=== PATIENT | female | born 1955 | race Caucasian/White ===

== ENCOUNTER 2017-06-09 14:12 | Emergency (ER) | payer MEDICARE, MEDICAID ==
--- NOTE | 2017-06-09 15:40 | RAD ---
LEFT KNEE 4 VIEWS: HISTORY: Fall, left knee pain. FINDINGS/IMPRESSION: Degenerative changes are present. No acute fracture or dislocation is noted. There is fullness in t he suprapatellar pouch, suspicious for a joint effusion. POS: [facility]
== END 2017-06-09 17:10 | disposition home or self-care (01) ==
LOC: ERS 14:12
DX: M23.92 Unspecified internal derangement of left knee (principal); Z76.0 Encounter for issue of repeat prescription; E11.9 Type 2 diabetes mellitus without complications; I10 Essential (primary) hypertension; J44.9 Chronic obstructive pulmonary disease, unspecified; F32.9 Major depressive disorder, single episode, unspecified; F17.210 Nicotine dependence, cigarettes, uncomplicated; Z79.4 Long term (current) use of insulin

== ENCOUNTER 2017-06-23 04:52 | Inpatient (IN) | payer MEDICARE, MEDICAID ==
[2017-06-23] MEDS ORDERED: Albuterol Sulfate 2.5 mg/3 ml Neb ONE ×2 (05:21)
[2017-06-23] MEDS ORDERED: Albuterol Sulfate 2.5 mg/0.5 ml Neb ONE (05:22)
[2017-06-23 05:27] LABS: Oxyhemoglobin 87.9 % (94.0-97.0); Sodium 139 mmol/L (135-148)
[2017-06-23 05:38] LABS: Modified Allen's Test POSITIVE
[2017-06-23 05:51] LABS: Lactic Acid - Sepsis 1.1 mmol/L (0.5-2.2)
[2017-06-23 05:54] LABS: #Basophils 0.1 thou/uL (0.0-0.2); #Eosinphils 0.6 thou/uL (0.0-0.7); #Lymphocytes 2.1 thou/uL (1.20-3.40); #Monocytes 0.6 thou/uL (0.11-0.59); #Neutrophils 3.5 thou/uL (1.40-6.50); %Basophils 0.9 % (0.0-1.0); %Eosinophils 9.3 % (0.0-10.0); %Lymphocytes 30.4 % (21.0-51.0); %Monocytes 8.2 % (0.0-10.0); Hematocrit 43.9 % (36.0-47.0); Mean Platelet Volume 7.8 fL (7.4-10.4); Red Blood Cell (RBC) Count 4.47 mill/uL (4.20-5.40); White Blood Cell (WBC) Count 6.8 thou/uL (4.8-10.8)
[2017-06-23 05:55] LABS: ALT (SGPT) 10 U/L (8-55); AST (SGOT) 17 U/L (5-34); Alkaline Phosphatase 73 U/L (40-150); Anion Gap 8 mmol/L (10-20); BUN (Urea Nitrogen) 19 mg/dL (9.8-20.1); Bilirubin, Total 0.4 mg/dL (0.2-1.2); CK (CPK) 128 U/L (29-168); Calc. Creatinine Clearance 0 mL/min (70-130); Calcium 9.5 mg/dL (7.8-10.44); Carbon Dioxide 36 mmol/L (23-31); Chloride 100 mmol/L (98-107); Estimated GFR-MDRD 54; Globulin 3.3 g/dL (2.4-3.5); Lipase 12 U/L (8-78); Protein, Total 6.8 g/dL (6.0-8.3)
[2017-06-23] MEDS ORDERED: Magnesium Sulfate 2 GM/100 ML BAG ONE (05:55)
[2017-06-23] MEDS ORDERED: Dexamethasone 10 MG/ML VIAL ONE (05:55)
[2017-06-23 06:00] LABS: Troponin I Less than 0.010 ng/mL (< 0.028)
--- NOTE | 2017-06-23 07:50 | RAD ---
PORTABLE CHEST 1 VIEW: DATE: 06/23/17. TIME: 5:49 a.m. HISTORY: Cough, shortness of breath. FINDINGS: Comparison is made with the exam of 01/24/17. The heart size is normal. The lungs are expanded. There is an infiltrate in the left infrahilar reg ion. No pneumothorax or pleural effusions are seen. Findings are suspicious for pneumonia. POS: [facility]
[2017-06-23] MEDS ORDERED: Ondansetron ODT 4 MG TAB SL PRN (10:16)
[2017-06-23] MEDS ORDERED: Ondansetron HCl/PF 4 MG/2 ML Vial IVP PRN ×2 (10:16→10:55)
[2017-06-23] MEDS ORDERED: Sodium Chloride 0.9% 1,000 ML IV SCH (10:16)
[2017-06-23] MEDS ORDERED: Benzonatate 100 MG CAP PO PRN (10:55)
[2017-06-23] MEDS ORDERED: HumaLOG 300 UNITS/3 ML VIAL SC PRN (10:55)
[2017-06-23] MEDS ORDERED: Dextrose 5% in Water 1,000 ML IV PRN (10:55)
[2017-06-23] MEDS ORDERED: Ondansetron ODT 4 MG TAB PO PRN (10:55)
[2017-06-23] MEDS ORDERED: Acetaminophen 500 MG TAB PO PRN (10:55)
[2017-06-23] MEDS ORDERED: hydrALAZINE 20 MG/ML VIAL SLOW IVP PRN (10:55)
[2017-06-23] MEDS ORDERED: Dextrose 50% Abboject 50 ML SYRINGE SLOW IVP PRN (10:55)
[2017-06-23] MEDS ORDERED: cloNIDine 0.1 MG TAB PO PRN (10:55)
[2017-06-23 11:49] VITALS: BMI 32.5
[2017-06-23] MEDS ORDERED: Sodium Chloride 0.9% 10 ML ONE ×2 (12:19→17:49)
[2017-06-23] MEDS: HumaLOG 300 UNITS/3 ML VIAL SC PRN ×2 (12:23→17:44)
--- NOTE | 2017-06-23 13:04 | HP ---
DATE OF ADMISSION: 06/23/2017 PRIMARY CARE PHYSICIAN: Yadira Barlow M.D at [facility] in [place], [place]. CHIEF COMPLAINT: Shortness of breath. HISTORY OF PRESENT ILLNESS: This is a 61-year-old female, who presented to [facility] Emergency Department complaining of increased shortness of breath, cough, fatigue over the last 3-4 days. The patient has had some productive cough of yellow phlegm, decreased activity level, but ongoing use of tobacco smoking up to a pack of cigarettes daily. The patient denied any prominent fe jamaal, but continued to smoke despite her symptoms. The patient states she uses two inhalers, which di d not seem to help her symptoms. The patient did notice worsening of her symptoms with weather mcnamara es with recent cold fronts in the [facility] area. The patient denies any specific expos ure history, family members with similar symptoms, travel history, or change to her medication regime n. The patient denies any prominent chest pain, left arm discomfort, or jaw pain. The patient denie d any hematemesis or weight loss. In the Emergency Department, the patient underwent general evaluat ion including chest imaging showing chronic changes in bilateral lung nuñez. The patient was treate d for acute hypoxia in the context of chronic obstructive pulmonary disease. Initially managed with a lbuterol sulfate solution in addition to Levaquin, magnesium sulfate, Decadron, and DuoNeb therapy. The patient was transferred to the medical floor for further evaluation. PAST MEDICAL HISTORY: 1. Chronic obstructive pulmonary disease. 2. Tobacco abuse, ongoing. 3. Hypertension. 4. Diabetes mellitus type 2, insulin requiring. 5. Gastroesophageal reflux. 6. History of varicose veins. PAST SURGICAL HISTORY: 1. Status post cholecystectomy. 2. Status post bladder suspension. 3. Status post partial hysterectomy. CURRENT MEDICATIONS: 1. Ventolin HFA 2 puffs inhaled q.i.d. p.r.n. 2. Carvedilol 12.5 mg 1 tablet p.o. b.i.d. 3. Lispro 20 units subcutaneously b.i.d. 4. Lisinopril/hydrochlorothiazide 20/12.5 mg 1 tablet p.o. b.i.d. 5. Metformin 500 mg 1 tablet p.o. daily. ALLERGIES: PENICILLIN AND SULFA. FAMILY HISTORY: Father diagnosed with a cancer of unknown type. Mother with history of diabetes sally litus and CVA. SOCIAL HISTORY: The patient smokes up to a pack of cigarettes daily. Works delivering newspapers. Denies alcohol or illicit drug use. REVIEW OF SYSTEMS: The following complete review of systems was negative, unless otherwise mentioned in the HPI or below: Constitutional: Weight loss or gain, ability to conduct usual activities. Skin: Rash, itching. Eyes: Double vision, pain. ENT/Mouth: Nose bleeding, neck stiffness, pain, tenderness. Cardiovascular: Palpitations, dyspnea on exertion, orthopnea. Respiratory: Shortness of breath, wheezing, cough, hemoptysis, fever or night sweats. Gastrointestinal: Poor appetite, abdominal pain, heartburn, nausea, vomiting, constipation, or diarrh ea. Genitourinary: Urgency, frequency, dysuria, nocturia. Musculoskeletal: Pain, swelling. Neurologic/Psychiatric: Anxiety, depression. Allergy/Immunologic: Skin rash, bleeding tendency. PHYSICAL EXAMINATION: VITAL SIGNS: On admission, blood pressure 164/80, pulse 78, respiratory rate 20, temperature 98.4 de grees Fahrenheit, O2 saturation 93% on 2 liters per minute by nasal cannula. GENERAL APPEARANCE: This is a 61-year-old female, alert and oriented x3, pleasant, in no a cute distress. HEENT: Pupils are equal, round, and reactive to light and accommodation. Extraocular muscles are in tact. No scleral icterus, no conjunctival injection. Nares patent. OP is clear. Teeth with nicoti ne staining. No oral lesions noted. NECK: Supple, no cervical adenopathy, no thyromegaly, no carotid bruits, no JVD appreciated. Cervic al spine with full active and passive range of motion. No meningeal signs appreciated. CHEST: Diminished breath sounds in bilateral lung nuñez with coarse expiratory wheezes. CARDIOVASCULAR: S1 and S2 with distant heart sounds. ABDOMEN: Obese, soft, nontender, nondistended. Bowel sounds are positive in all four quadrants. Th ere is no hepatosplenomegaly, no abdominal bruits, no rebound or guarding appreciated. EXTREMITIES: Warm and dry with fair turgor. No clubbing, cyanosis or asymmetric edema appreciated. Pulses palpable distally at the dorsalis pedis, posterior tibial, and popliteal arteries bilaterally . Capillary refill less than 2 seconds. NEUROLOGIC: Cranial nerves II-XII grossly intact. No focal or lateralizing signs appreciated. PERTINENT LABORATORY AND X-RAY FINDINGS: Basic metabolic profile within normal limits. LFTs within normal limits. Troponin I negative x1. BNP 158. Albumin 3.5, lipase 12. CBC showed a white blood cell count 6.8, hemoglobin 14, hematocrit 44, platelet count 197 with normal differential. ABG at th e time of admission 06/23/2017 at 5:27 a.m. showed a pH 7.33, pCO2 of 60, pO2 of 68, bicarbonate 31, O2 saturation 94% on room air. EKG dated 06/23/2017 by my interpretation shows sinus mechanism with heart rates in the 70s. Normal R-wave progression noted in the precordial leads. Normal axis. No a cute ST-T wave changes appreciated. Portable chest x-ray dated 06/23/2017 shows chronic changes in b ilateral lung nuñez. Questionable early infiltrate in the left infrahilar region. ASSESSMENT AND PLAN: 1. Acute hypoxemic respiratory failure secondarily to #2. 2. We will continue oxygen supplementation to maintain O2 saturations greater than or equal to 90%. Continue treatment as outlined in #2. 3. Acute chronic obstructive pulmonary disease exacerbation. Continue DuoNebs q.4 hours scheduled. Solu-Medrol 40 mg IV q.6 hours. Levaquin 750 mg p.o. daily. Resume Symbicort 2 puffs inhaled b.i.d . 4. Hypertension. Resume home antihypertensive regimen and monitor clinical response. 5. Diabetes mellitus type 2, insulin requiring. Insulin sliding scale for flexible coverage. Resum e home insulin regimen. Serial Accu-Cheks before meals and at bedtime. ADA diet. 6. Tobacco abuse. We will offer smoking cessation resources prior to discharge. 7. Prophylaxis. Sequential compression devices while in bed. Pepcid 20 mg p.o. b.i.d. Smoking aleksandar sation resources. Update pneumonia vaccination prior to discharge. 8. Code status is FULL. Surrogate medical decision maker is the patient's daughter.
[2017-06-23] MEDS ORDERED: Lisinopril/Hydrochlorothiazide 20 mg/12.5 mg Tablet PO SCH (13:30)
[2017-06-23] MEDS ORDERED: Carvedilol 6.25 MG TAB PO SCH ×2 (13:30→14:15)
[2017-06-23] MEDS: Carvedilol 6.25 MG TAB PO SCH (17:43)
[2017-06-23] MEDS: Insulin NPH/Reg Insulin Hm 300 UNITS/3 ML VIAL SC SCH (17:44)
[2017-06-23] MEDS: Hydrochlorothiazide 25 MG TAB PO SCH (21:47)
[2017-06-23] MEDS: Famotidine 20 MG TAB PO SCH (21:48)
[2017-06-24] MEDS ORDERED: Sodium Chloride 0.9% 10 ML ONE ×2 (06:07)
[2017-06-24 06:40] LABS: Anion Gap 13 mmol/L (10-20); BUN (Urea Nitrogen) 27 mg/dL (9.8-20.1); Calc. Creatinine Clearance 89 mL/min (70-130); Calcium 9.1 mg/dL (7.8-10.44); Carbon Dioxide 25 mmol/L (23-31); Chloride 96 mmol/L (98-107); Estimated GFR-MDRD 54; Hematocrit 43.6 % (36.0-47.0); Mean Platelet Volume 8.4 fL (7.4-10.4); Red Blood Cell (RBC) Count 4.56 mill/uL (4.20-5.40); White Blood Cell (WBC) Count 12.6 thou/uL (4.8-10.8)
[2017-06-24] MEDS: HumaLOG 300 UNITS/3 ML VIAL SC PRN (07:00)
[2017-06-24] MEDS: Insulin NPH/Reg Insulin Hm 300 UNITS/3 ML VIAL SC SCH (08:20)
[2017-06-24] MEDS: Hydrochlorothiazide 25 MG TAB PO SCH (08:21)
[2017-06-24] MEDS: Carvedilol 6.25 MG TAB PO SCH (08:28)
[2017-06-24] MEDS: Famotidine 20 MG TAB PO SCH (08:31)
[2017-06-24 08:43] LABS: Band 13 % (5-11); Neutrophil 84 % (42-75); Reactive Lymphocytes 1 % (0-10)
[2017-06-24 08:49] VITALS: BP 183/81
[2017-06-24 08:52] VITALS: TEMP 98.2
[2017-06-24] MEDS ORDERED: Lisinopril 20 MG TAB PO SCH (09:00)
--- NOTE | 2017-06-24 12:03 | DIS ---
DATE OF ADMISSION: 06/23/2017 DATE OF DISCHARGE: 06/24/2017 DISCHARGE DIAGNOSES: 1. Acute hypoxic respiratory failure secondarily to #2, improved. 2. Acute chronic obstructive pulmonary disease exacerbation. 3. Tobacco abuse, ongoing. 4. Hypertension, stable. 5. Diabetes mellitus type 2, insulin requiring, labile due to steroids. CONSULTATIONS: None. PERTINENT LABORATORY AND X-RAY FINDINGS: Lactic acid level 1.1, calcium 9.1. BNP 158. CBC showed a white blood cell count ranging between 6.8-12.6. Blood cultures x2 dated 06/23/2017, showed no grow th to date. Influenza A and B antigen 06/23/2017 negative. Portable chest x-ray dated 06/23/2017, s howed questionable infiltrate in the left infrahilar region. HOSPITAL COURSE: Patient was admitted to the medical floor after initially presenting with increased shortness of breath, cough in the context of chronic obstructive pulmonary disease with exacerbation . The patient was placed on broad spectrum IV antibiotic therapy with Levaquin 750 mg daily. The pa tient was given bronchodilator therapy as well as IV Solu-Medrol with overall improvement in shortnes s of breath. Patient is clinically stabilized and was maintaining O2 saturations greater than 90% on room air by the time of discharge. The patient was counseled regarding the need for smoking cessati on and given resources for discharge. Overall, the patient remained clinically stable throughout the hospital course with glucose values trending upward due to exposure to steroids. Patient's overall vital signs stable at the time of discharge 06/24/2017. DISCHARGE MEDICATIONS: 1. Levaquin 750 mg 1 tab p.o. daily x5 days. 2. Ventolin HFA 2 puffs inhaled q.6 hours p.r.n. 3. Lipitor 10 mg 1 tab p.o. at bedtime. 4. Coreg 12.5 mg p.o. b.i.d. 5. NPH insulin 20 units subcutaneously b.i.d. 6. DuoNebs 3 mL nebulized q.i.d. p.r.n. 7. Lisinopril/HCTZ 20/12.5 mg 1 tab p.o. b.i.d. 8. Metformin 500 mg 1 tab p.o. b.i.d. 9. Prednisone 20 mg 2 tabs p.o. daily x 3 days, followed by 1 tab p.o. daily x 3 days, followed by h correction a tab p.o. daily x3 days. FOLLOWUP: The patient will follow up with her primary care provider, Dr. Yadira Barlow within 7 day s of discharge. CONDITION ON DISCHARGE: Fair. ACTIVITY: Ad hilda. DIET: Heart healthy and ADA. CODE STATUS: FULL. DISPOSITION: Home, 06/24/2017.
[2017-06-24] MEDS ORDERED: metFORMIN 500 MG TAB PO SCH (17:00)
--- NOTE | 2017-06-27 13:54 | EKG ---
Test Reason : Blood Pressure : / mmHG Vent. Rate : 076 BPM Atrial Rate : 076 BPM P-R Int : 150 ms QRS Dur : 088 ms QT Int : 400 ms P-R-T Axes : 035 071 088 degrees QTc Int : 450 ms Normal sinus rhythm Normal ECG Confirmed by JACQUELYN LEIVA, ART ([id number]), offline editor ANDERS BROWN ([id number]) on 06/27/2017 1:52:52 PM Referred By: Confirmed By:ART VALLADARES MD
== END 2017-06-24 11:41 | disposition home or self-care (01) | DRG 189 ==
LOC: ERS 04:52 → 3SE 05:36
PROVIDERS: ADMIT Internal Medicine; ATTEND Internal Medicine
DX: J96.01 Acute respiratory failure with hypoxia (principal); J44.1 Chronic obstructive pulmonary disease with (acute) exacerbation; I10 Essential (primary) hypertension; F17.210 Nicotine dependence, cigarettes, uncomplicated; E11.9 Type 2 diabetes mellitus without complications; Z90.49 Acquired absence of other specified parts of digestive tract; Z90.711 Acquired absence of uterus with remaining cervical stump; Z79.4 Long term (current) use of insulin
CPT/HCPCS: 36415; 36416; 71010; 80048; 80053; 82550; 82553; 82805; 83605; 83690; 83880; 84484; 85007; 85025; 85027; 87040; 93005; 94640; 96365; 96367; 96375; 99406; A4216; J0360; J1100; J1956; J2920; J3475; J7611; J7620

== ENCOUNTER 2017-09-08 12:52 | Outpatient (CLI) | payer MEDICARE, MEDICAID ==
--- NOTE | 2017-09-08 14:00 | RAD ---
TWO VIEW CHEST: History: Shortness of breath. Cough. FINDINGS: The lungs are clear with no infiltrate. No evidence of vascular congestion. Heart size is within norm al range. Old right rib fractures are again noted. IMPRESSION: No acute process. POS: [facility]
== END 2017-09-08 12:53 | disposition home or self-care (01) ==
LOC: RAD 12:52
PROVIDERS: ATTEND Internal Medicine Critical Care Medicine
DX: R06.00 Dyspnea, unspecified (principal)
CPT/HCPCS: 71046

== ENCOUNTER 2017-10-12 12:37 | Outpatient (CLI) | payer MEDICARE, MEDICAID | END 2017-10-12 12:38 | disposition home or self-care (01) | LOC: CP 12:37 | PROVIDERS: ATTEND Internal Medicine Critical Care Medicine | DX: J44.9 Chronic obstructive pulmonary disease, unspecified (principal); R06.00 Dyspnea, unspecified | CPT/HCPCS: 94060; 94727; 94729 ==

== ENCOUNTER 2018-02-28 15:09 | Emergency (ER) | payer MEDICARE, MEDICAID ==
--- NOTE | 2018-02-28 15:59 | RAD ---
[facility] 1 VIEW: Date: 02/28/18 HISTORY: Cough. COMPARISON: Chest radiograph dated 09/08/17. FINDINGS: Old right-sided rib fractures, Left basilar opacity. No pneumothorax. IMPRESSION: Left basilar opacity, concerning for infection. Follow-up recommended. POS: [facility]
[2018-02-28 16:02] LABS: #Eosinphils 0.5 thou/uL (0.0-0.7); #Lymphocytes 1.5 thou/uL (1.20-3.40); #Monocytes 0.5 thou/uL (0.11-0.59); #Neutrophils 8.4 thou/uL (1.40-6.50); %Basophils 0.1 % (0.0-1.0); %Eosinophils 4.4 % (0.0-10.0); %Lymphocytes 13.7 % (21.0-51.0); %Monocytes 4.9 % (0.0-10.0); Mean Corpuscular HGB CONC 32.6 g/dL (32.0-36.0); Mean Corpuscular Hemoglobin 30.3 pg (27.0-31.0); Mean Corpuscular Volume 93.1 fL (78.0-98.0); Mean Platelet Volume 7.1 fL (7.4-10.4); Platelet Count 239 thou/uL (130-400); RBC Distribution Width 12.5 % (11.5-14.5); Red Blood Cell (RBC) Count 5.29 mill/uL (4.20-5.40); White Blood Cell (WBC) Count 10.9 thou/uL (4.8-10.8)
[2018-02-28 16:39] LABS: ALT (SGPT) 7 U/L (8-55); AST (SGOT) 15 U/L (5-34); Albumin 3.1 g/dL (3.4-4.8); Alkaline Phosphatase 105 U/L (40-150); Anion Gap 13 mmol/L (10-20); BUN (Urea Nitrogen) 17 mg/dL (9.8-20.1); Bilirubin, Total 0.6 mg/dL (0.2-1.2); Calc. Creatinine Clearance 0 mL/min (70-130); Calcium 9.1 mg/dL (7.8-10.44); Carbon Dioxide 32 mmol/L (23-31); Chloride 94 mmol/L (98-107); Estimated GFR-MDRD 68; Globulin 3.5 g/dL (2.4-3.5); Glucose 110 mg/dL (80-115); Potassium 4.7 mmol/L (3.5-5.1); Protein, Total 6.6 g/dL (6.0-8.3); Sodium 134 mmol/L (136-145)
[2018-02-28] MEDS ORDERED: predniSONE 20 MG TAB ONE (16:44)
== END 2018-02-28 17:00 | disposition home or self-care (01) ==
LOC: ERS 15:09
DX: J18.9 Pneumonia, unspecified organism (principal); E11.9 Type 2 diabetes mellitus without complications; I10 Essential (primary) hypertension; J44.9 Chronic obstructive pulmonary disease, unspecified; F32.9 Major depressive disorder, single episode, unspecified; F17.210 Nicotine dependence, cigarettes, uncomplicated
CPT/HCPCS: 36415; 71045; 80053; 85025; 94640; J7506; J7620

== ENCOUNTER 2018-03-05 08:50 | Inpatient (IN) | payer MEDICARE, MEDICAID ==
[2018-03-05] MEDS ORDERED: methylPREDNISolone Sod Succ/PF 125 MG/2 ML VIAL ONE (09:12)
[2018-03-05 09:17] LABS: #Basophils 0.1 thou/uL (0.0-0.2); #Eosinphils 0.4 thou/uL (0.0-0.7); #Lymphocytes 2.8 thou/uL (1.20-3.40); #Monocytes 0.7 thou/uL (0.11-0.59); #Neutrophils 10.1 thou/uL (1.40-6.50); %Basophils 0.5 % (0.0-1.0); %Eosinophils 2.8 % (0.0-10.0); %Lymphocytes 19.9 % (21.0-51.0); %Monocytes 5.1 % (0.0-10.0); %Neutrophils 71.6 % (42.0-75.0); Hemoglobin 16.4 g/dL (12.0-16.0); Mean Corpuscular HGB CONC 32.5 g/dL (32.0-36.0); Mean Corpuscular Hemoglobin 30.5 pg (27.0-31.0); Mean Corpuscular Volume 93.7 fL (78.0-98.0); Mean Platelet Volume 7.1 fL (7.4-10.4); Platelet Count 258 thou/uL (130-400); RBC Distribution Width 13.1 % (11.5-14.5); Red Blood Cell (RBC) Count 5.39 mill/uL (4.20-5.40)
[2018-03-05 09:32] LABS: CKMB 3.7 ng/mL (0-6.6)
[2018-03-05 09:41] LABS: Troponin I Less than 0.010 ng/mL (< 0.028)
[2018-03-05] MEDS ORDERED: Ketorolac Tromethamine 30 MG/ML VIAL ONE (09:43)
[2018-03-05 09:56] LABS: ALT (SGPT) 10 U/L (8-55); AST (SGOT) 19 U/L (5-34); Albumin 3.4 g/dL (3.4-4.8); Alkaline Phosphatase 79 U/L (40-150); Anion Gap 12 mmol/L (10-20); BUN (Urea Nitrogen) 23 mg/dL (9.8-20.1); Bilirubin, Total 0.4 mg/dL (0.2-1.2); CK (CPK) 290 U/L (29-168); Calc. Creatinine Clearance 0 mL/min (70-130); Calcium 8.6 mg/dL (7.8-10.44); Carbon Dioxide 31 mmol/L (23-31); Chloride 95 mmol/L (98-107); Estimated GFR-MDRD 56; Globulin 3.3 g/dL (2.4-3.5); Glucose 74 mg/dL (80-115); Protein, Total 6.7 g/dL (6.0-8.3); Sodium 134 mmol/L (136-145)
[2018-03-05] MEDS ORDERED: diphenhydrAMINE 50 MG/ML VIAL ONE (11:22)
--- NOTE | 2018-03-05 11:38 | RAD ---
AP VIEW CHEST: Date: 03/05/18 INDICATION: History of pneumonia. COMPARISON: Prior exam dated 02/28/18. FINDINGS: The patchy left basilar opacity i8s no longer demonstrated and may reflect some improvement in pneumo maylin. A 2 view chest radiograph may be helpful for further evaluation. Mild cardiomegaly is stable. Ca lcified lymph nodes are stable. Healed deformity involving the right posterior chest wall is similar. IMPRESSION: 1. Less prominence of the left basilar opacity seen on comparison examination may reflect improving pneumonia. 2 view chest radiograph may be helpful to document full resolution. 2. Stable mild cardiomegaly. POS: [facility]
--- NOTE | 2018-03-05 11:56 | HP ---
PRIMARY CARE PHYSICIAN: Dr. Cain May at [facility]. REASON FOR ADMISSION: COPD exacerbation, failure of outpatient therapy. HISTORY OF PRESENT ILLNESS: A 62-year-old female who has underlying history of COPD as well as ongoi ng tobacco abuse disorder who presented to emergency room on 03/03/2018. At that time, patient was h aving increasing amount of cough with productive p.o. yellowish green sputum as well as wheezing and increasing amount of shortness of breath. The patient's exercise tolerance significantly reduced. S he was hearing her own wheezing. She was having significant amount of cough and that was making her chest wall hurt. She was having subjective fever at home. She was feeling more and more worse and t hat is why she came on that day emergency room for evaluation. In the emergency room, she was diagno sed with pneumonia in the left lower lobe. The patient was given Levaquin 750 mg IV and patient was given DuoNeb therapy x2 and prednisone was given. Subsequently, patient was discharged home on oral prednisone as well as oral levofloxacin per patient request. Patient was not doing well since then. She continued to smoke even after discharge from the ER, her condition was getting worse and that is why today she decided to come to the emergency room for evaluation. When she came to the emergency room, she was relatively hypoxic. Her saturation was 88%-90% on room air. With oxygen saturation, s he was improving. She was having audible wheezing. She was continued to have chest wall pain as wel l as cough productive for sputum. She did have a low grade fever as well at home. She was not feeli ng better and that is why she decided to come to hospital again today. In the emergency room, she had chest x-ray which was showing resolving pneumonia. She received DuoNe b therapy, Solu-Medrol 125 mg, Levaquin 750 mg, Toradol 30 mg, and IV fluid and we are admitting this patient to medical floor. PAST MEDICAL HISTORY: COPD, ongoing tobacco abuse disorder, hypertension, diabetes type 2, gastroeso phageal reflux disease, varicose veins. PAST SURGICAL HISTORY: Cholecystectomy, bladder suspension, partial hysterectomy. PAST PSYCHIATRIC HISTORY: Reviewed and negative. ALLERGIES: PENICILLIN and SULFA DRUGS. FAMILY HISTORY: Father diagnosed with cancer of unknown type. Mother has history of diabetes and st roke. SOCIAL HISTORY: The patient is smoking 1 pack per day. 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 No histor y of alcohol or other illicit drug abuse. REVIEW OF SYSTEMS: The following complete review of systems was negative, unless otherwise mentioned in the HPI or below: Constitutional: Weight loss or gain, ability to conduct usual activities. Skin: Rash, itching. Eyes: Double vision, pain. ENT/Mouth: Nose bleeding, neck stiffness, pain, tenderness. Cardiovascular: Palpitations, dyspnea on exertion, orthopnea. Respiratory: Shortness of breath, wheezing, cough, hemoptysis, fever or night sweats. Gastrointestinal: Poor appetite, abdominal pain, heartburn, nausea, vomiting, constipation, or diarr hea. Genitourinary: Urgency, frequency, dysuria, nocturia. Musculoskeletal: Pain, swelling. Neurologic/Psychiatric: Anxiety, depression. Allergy/Immunologic: Skin rash, bleeding tendency. Please see my HPI for pertinent positive and negative. All other review of systems reviewed and nega tive except as mentioned in the HPI. CURRENT HOME MEDICATIONS: Lipitor 10 mg p.o. at bedtime, Coreg 12.5 mg twice daily, insulin 70/30 20 units subcu b.i.d., Prinzide 20/12.5 one tablet daily, metformin 500 mg p.o. b.i.d., Levaquin 750 mg p.o. daily, prednisone 20 mg p.o. daily, albuterol inhaler as needed basis, DuoNeb q.6 hourly PHYSICAL EXAMINATION: VITAL SIGNS: On arrival, blood pressure 185/93, pulse 76, respiratory rate 24, saturation 88% on rosalee m air and 93% on 2 liter oxygen, weight 113.4 kilograms, temperature 98.8. GENERAL: Patient is currently hypertensive, mild respiratory distress. HEAD: Normocephalic, atraumatic. EYES: Pupils round, reactive to light. Extraocular muscle intact. ENT: Oropharynx within normal limits. Moist mucous membrane, no oral lesion, no pharyngeal erythema , no exudate. NECK: Supple, no JVD, no thyromegaly, no carotid bruit. LUNGS: Bilateral end expiratory wheezing heard, bibasilar predominantly on the left side or rales no bill. No accessory muscles of respiration in use. CARDIAC: S1, S2 regular. No murmur elicited, no gallop, no rub. ABDOMEN: Obesity present. Bowel sounds present, nontender, nondistended. No organomegaly, no mass, no suprapubic tenderness. BACK: Examination unremarkable, no CVA tenderness. EXTREMITIES: Upper extremity passive movements of all joints are normal. Lower extremities: Bilate ral lower extremity edema noted. Varicose vein changes noted. No calf tenderness. SKIN: No skin rash. Patient has plethoric appearance. NEUROLOGIC: Nonfocal examination. Patient is moving all 4 limbs. Plantar bilateral flexor. PSYCHIATRIC: Normal affect. IMAGING DATA AND SIGNIFICANT LABORATORY DATA: trainer showing normal sinus rhythm. EKG sh owing normal sinus rhythm within normal limits. Chest x-ray showing cardiomegaly, stable pulmonary n odule and left lower lobe opacity, resolving. CBC: WBC 14.0, hemoglobin 16.4, platelet 258 with lef t shift. BMP: Sodium 134, potassium 4.0, chloride 95, carbon dioxide 31, anion gap 12, BUN 23, crea tinine 1.0, glucose 74, calcium 8.6. LFT: AST 19, ALT 10, alkaline phosphatase 79, albumin 3.46, CK 290, CK-MB 3.7, troponin I less than 0.010, BNP 284.9. ASSESSMENT AND PLAN/IMPRESSION: 1. Acute on chronic obstructive pulmonary disease exacerbation with failure of outpatient therapy, m ost likely precipitated by underlying pneumonia. Patient has active wheezing as well as rales on the left lower lobe and she is symptomatic, she is hypoxic. She will require admission. We will keep h er on medical floor. We will treat her with Solu-Medrol 40 mg IV q.6 hourly, DuoNeb q.4 hours and p. r.n., Dulera 2 puffs inhalation b.i.d., Mucinex 600 mg twice daily, empiric antibiotic therapy with L evofloxacin 750 mg IV daily. We will monitor oxygen saturation periodically. Smoking cessation coun seling given and we will offer nicotine patch while in hospital. We will monitor clinical response. 2. Left lower lobe community-acquired pneumonia, improving. We will continue Levaquin 750 mg IV shivani ly along with Mucinex 600 mg twice daily and medication mentioned above for chronic obstructive pulmo nary disease exacerbation. 3. Tobacco abuse disorder. Smoking cessation counseling given. Patient will need a nicotine patch while in hospital. 4. Acute hypoxic respiratory failure. We will monitor oxygen saturation periodically while in hospi ikt. This is related with her chronic obstructive pulmonary disease exacerbation with pneumonia. 5. Elevated BNP. We will obtain echocardiography to assess right ventricular function and rule out cor pulmonale. 6. Mild hyponatremia, may be related with COPD and has hydrochlorothiazide. 7. Hypertension. We will continue Coreg 12.5 mg twice daily and Prinzide 20/12.5 one tablet daily. 8. Diabetes type 2. Continue insulin 70/30 20 units subcu b.i.d., metformin 500 mg p.o. twice daily and insulin as per sliding scale per protocol. 9. Dyslipidemia. Continue Lipitor 10 mg p.o. at bedtime. 10. Obesity. Dietary education given. Healthy lifestyle measures discussed with the patient. 11. Deep venous thrombosis prophylaxis. Lovenox 40 mg subcu b.i.d. 12. Gastrointestinal prophylaxis, Pepcid 20 mg p.o. b.i.d. 13. Code status: The patient is full code. Plan of care discussed with the patient and family member at bedside in the emergency room. We will control her chest wall pain with morphine as needed basis.
[2018-03-05] MEDS ORDERED: Acetaminophen 325 MG TAB PO PRN (13:26)
[2018-03-05] MEDS ORDERED: Ondansetron HCl/PF 4 MG/2 ML Vial IVP PRN ×2 (13:26→14:30)
[2018-03-05] MEDS ORDERED: Ondansetron ODT 4 MG TAB SL PRN (13:26)
[2018-03-05 14:22] VITALS: BMI 39.1
[2018-03-05] MEDS ORDERED: Loratadine 10 MG TAB PO PRN (14:30)
[2018-03-05] MEDS ORDERED: cloNIDine 0.1 MG TAB PO PRN (14:30)
[2018-03-05] MEDS ORDERED: Dextrose 5% in Water 1,000 ML IV PRN (14:30)
[2018-03-05] MEDS ORDERED: Artificial Tear Sol 15 ML BOT EA EYE PRN (14:30)
[2018-03-05] MEDS ORDERED: Loperamide HCl 2 MG CAP PO PRN ×2 (14:30)
[2018-03-05] MEDS ORDERED: Mag-Al 1200 mg/1200 mg/30 ML UDCUP PO PRN (14:30)
[2018-03-05] MEDS ORDERED: Sodium Chloride 0.65% Nasal 44 ML BOT EA NARE PRN (14:30)
[2018-03-05] MEDS ORDERED: Senokot 8.6 MG TAB PO PRN (14:30)
[2018-03-05] MEDS ORDERED: Chloraseptic Spray 180 ml Bottle PO PRN (14:30)
[2018-03-05] MEDS ORDERED: Zolpidem Tartrate 5 MG TAB PO PRN (14:30)
[2018-03-05] MEDS ORDERED: Eucerin (Mineral Oil/Petrolatum,White) 30 gm Jar TOP PRN (14:30)
[2018-03-05] MEDS ORDERED: Milk Of Magnesia 30 ML UDCUP PO PRN (14:30)
[2018-03-05] MEDS ORDERED: hydrALAZINE 20 MG/ML VIAL SLOW IVP PRN (14:30)
[2018-03-05] MEDS ORDERED: Ondansetron ODT 4 MG TAB PO PRN (14:30)
[2018-03-05] MEDS ORDERED: Dextrose 50% Abboject 50 ML SYRINGE SLOW IVP PRN (14:30)
[2018-03-05] MEDS: Sodium Chloride 0.9% 1,000 ML IV SCH ×2 (14:37→21:22)
[2018-03-05] MEDS ORDERED: Carvedilol 6.25 MG TAB PO SCH (17:00)
[2018-03-05] MEDS: metFORMIN 500 MG TAB PO SCH (17:44)
[2018-03-05] MEDS: HumaLOG 300 UNITS/3 ML VIAL SC PRN ×2 (17:45→21:21)
[2018-03-05] MEDS: Mometasone/Formoterol 120 PUFF INHALER INH SCH (18:26)
[2018-03-05] MEDS: guaiFENesin ER 600 MG TAB PO SCH (20:16)
[2018-03-05] MEDS: Diabetic Tussin 200 MG/10 ML UDCUP PO PRN (20:16)
[2018-03-05] MEDS: Famotidine 20 MG TAB PO SCH (20:16)
[2018-03-05] MEDS: Atorvastatin Calcium 10 MG TAB PO SCH (20:16)
[2018-03-05] MEDS: Insulin NPH/Reg Insulin Hm 300 UNITS/3 ML VIAL SC SCH (21:21)
[2018-03-06 05:24] LABS: Anion Gap 15 mmol/L (10-20); BUN (Urea Nitrogen) 31 mg/dL (9.8-20.1); Calc. Creatinine Clearance 87 mL/min (70-130); Carbon Dioxide 27 mmol/L (23-31); Chloride 94 mmol/L (98-107); Estimated GFR-MDRD 43; Glucose 229 mg/dL (80-115); Potassium 4.9 mmol/L (3.5-5.1); Sodium 131 mmol/L (136-145)
[2018-03-06] MEDS: Diabetic Tussin 200 MG/10 ML UDCUP PO PRN (05:59)
[2018-03-06] MEDS: HumaLOG 300 UNITS/3 ML VIAL SC PRN ×4 (06:08→21:50)
[2018-03-06 06:19] LABS: Band 14 % (5-11); Hemoglobin 15.2 g/dL (12.0-16.0); Lymphocytes 5 % (21-51); MDiff Complete? YES; Mean Corpuscular HGB CONC 31.9 g/dL (32.0-36.0); Mean Corpuscular Hemoglobin 29.5 pg (27.0-31.0); Mean Corpuscular Volume 92.3 fL (78.0-98.0); Mean Platelet Volume 7.4 fL (7.4-10.4); Monocytes 1 % (0-10); Neutrophil 80 % (42-75); Platelet Count 225 thou/uL (130-400); RBC Distribution Width 12.6 % (11.5-14.5); Red Blood Cell (RBC) Count 5.15 mill/uL (4.20-5.40); White Blood Cell (WBC) Count 13.8 thou/uL (4.8-10.8)
[2018-03-06] MEDS: Acetaminophen 325 MG TAB PO PRN ×3 (06:29→21:43)
[2018-03-06] MEDS: Mometasone/Formoterol 120 PUFF INHALER INH SCH ×2 (06:29→18:30)
[2018-03-06] MEDS: Insulin NPH/Reg Insulin Hm 300 UNITS/3 ML VIAL SC SCH ×2 (08:38→21:47)
[2018-03-06] MEDS: metFORMIN 500 MG TAB PO SCH ×2 (08:38→16:42)
[2018-03-06] MEDS: Famotidine 20 MG TAB PO SCH ×2 (08:38→21:41)
[2018-03-06] MEDS: Nicotine 21 MG PATCH TD SCH (08:38)
[2018-03-06] MEDS: Carvedilol 25 MG TAB PO SCH ×2 (08:38→16:42)
[2018-03-06] MEDS: Enoxaparin Sodium 40 MG/0.4 ML SYRINGE SC SCH (08:38)
[2018-03-06] MEDS: guaiFENesin ER 600 MG TAB PO SCH ×2 (08:38→21:42)
[2018-03-06] MEDS: Saccharomyces boulardii 250 MG CAP PO SCH (08:38)
[2018-03-06] MEDS: Lisinopril/Hydrochlorothiazide 20 mg/12.5 mg Tablet PO SCH (08:52)
--- NOTE | 2018-03-06 11:01 | PDOC.PN ---
- Subjective Encounter Start Date: 03/06/18 Encounter Start Time: 09:00 Patient seen and examined. No new complaints. No overnight events - Objective Resuscitation Status: Resuscitation Status FULL:Full Resuscitation MAR Reviewed: Yes Vital Signs & Weight: Vital Signs (12 hours) Temp Pulse Resp BP BP Pulse Ox 03/06/18 10:44 98.4 F 107 H 18 165/88 H 92 L 03/06/18 10:20 76 16 94 L 03/06/18 08:52 75 168/78 H 03/06/18 08:00 98.1 F 72 16 97 03/06/18 07:42 98.1 F 72 16 168/78 H 97 03/06/18 06:30 77 16 94 L 03/06/18 06:29 77 16 94 L 03/06/18 06:27 97.7 F 80 26 H 166/77 H 91 L 03/06/18 02:20 71 16 97 03/06/18 01:06 97.4 F L 83 24 H 140/81 93 L Weight Weight 265 lb 1.6 oz I&O: 03/05/18 03/06/18 03/07/18 06:59 06:59 06:59 Intake Total 822 Balance 822 Result Diagrams: 03/06/18 04:19 03/06/18 04:19 Additional Labs: Accuchecks 03/06/18 03/05/18 03/05/18 06:07 21:05 16:10 POC Glucose 280 H 368 H 250 H Phys Exam - Physical Examination Constitutional: NAD HEENT: PERRLA, moist MMs, sclera anicteric Neck: no JVD, supple Respiratory: no rhonchi, wheezing present left base rales Cardiovascular: RRR, no significant murmur, no rub Gastrointestinal: soft, non-tender, no distention, positive bowel sounds obesity+ Musculoskeletal: no edema, pulses present Neurological: non-focal, normal sensation, moves all 4 limbs Lymphatic: no nodes Psychiatric: normal affect Skin: no rash, normal turgor Dx/Plan (1) Acute respiratory failure with hypoxia Code(s): J96.01 - ACUTE RESPIRATORY FAILURE WITH HYPOXIA Status: Acute (2) COPD exacerbation Code(s): J44.1 - CHRONIC OBSTRUCTIVE PULMONARY DISEASE W (ACUTE) EXACERBATION Status: Acute (3) Community acquired bacterial pneumonia Code(s): J15.9 - UNSPECIFIED BACTERIAL PNEUMONIA Status: Acute (4) Elevated brain natriuretic peptide (BNP) level Code(s): R79.89 - OTHER SPECIFIED ABNORMAL FINDINGS OF BLOOD CHEMISTRY Status : Acute (5) Diabetes type 2, controlled Code(s): E11.9 - TYPE 2 DIABETES MELLITUS WITHOUT COMPLICATIONS Status: Chronic (6) Dyslipidemia Code(s): E78.5 - HYPERLIPIDEMIA, UNSPECIFIED Status: Chronic (7) Hypertension Code(s): I10 - ESSENTIAL (PRIMARY) HYPERTENSION Status: Chronic (8) Obesity (BMI 30-39.9) Code(s): E66.9 - OBESITY, UNSPECIFIED Status: Chronic (9) Tobacco abuse Code(s): Z72.0 - TOBACCO USE Status: Chronic - Plan cont current plan of care, continue antibiotics, respiratory therapy * counselled to quit smoking * continue levaquin * reduce solumedrol 20 mg iv q 6hrly * continue current optimum medical therapy for copd * wean off oxygen as tolerated * medication reviewed as below * symptomatic treatment * ambulate as tolerated. * home medication reconciled Review of Systems - Review of Systems Eyes: negative: Pain, Vision Change, Conjunctivae Inflammation, Eyelid Inflammation, Redness, Other ENT: negative: Ear Pain, Ear Discharge, Nose Pain, Nose Discharge, Nose Congestion, Mouth Pain, Mouth Swelling, Throat Pain, Throat Swelling, Other Respiratory: Cough, Shortness of Breath, Wheezing. negative: Dry, Hemoptysis, SOB with Excertion, Pleuritic Pain, Sputum Cardiovascular: negative: chest pain, palpitations, orthopnea, paroxysmal nocturnal dyspnea, edema, light headedness, other Gastrointestinal: negative: Nausea, Vomiting, Abdominal Pain, Diarrhea, Constipation, Melena, Hematochezia, Other Genitourinary: negative: Dysuria, Frequency, Incontinence, Hematuria, Retention , Other Musculoskeletal: negative: Neck Pain, Shoulder Pain, Arm Pain, Back Pain, Hand Pain, Leg Pain, Foot Pain, Other Skin: negative: Rash, Lesions, Nico, Bruising, Other - Medications/Allergies Allergies/Adverse Reactions: Allergies Allergy/AdvReac Type Severity Reaction Status Date / Time ketorolac [From Toradol] Allergy Verified 03/05/18 14:16 Penicillins Allergy Rash Verified 03/05/18 14:16 sulfamethoxazole Allergy Rash Verified 03/05/18 14:16 [From Bactrim] trimethoprim [From Bactrim] Allergy Verified 03/05/18 14:16 Medications: Current Medications Acetaminophen (Tylenol) 650 mg PO Q4H PRN PRN Reason: Headache/Fever or Pain Last Admin: 03/06/18 06:29 Dose: 650 mg Al Hydroxide/Mg Hydroxide (Maalox) 30 ml PO Q6H PRN PRN Reason: Heartburn or Indigestion Albuterol/Ipratropium (Duoneb) 3 ml NEB [id number] [facility] Last Admin: 03/06/18 10:20 Dose: 3 ml Artificial Tears (Tears Renewed 15ml Bottle) 0 drop EA EYE PRN PRN PRN Reason: Dry Eyes Atorvastatin Calcium (Lipitor) 10 mg PO HS [facility] Last Admin: 03/05/18 20:16 Dose: 10 mg Carvedilol (Coreg) 25 mg PO BID-[facility] Last Admin: 03/06/18 08:38 Dose: 25 mg Clonidine (Catapres) 0.1 mg PO Q4H PRN PRN Reason: Systolic BP > 180 Dextrose/Water (Dextrose 50%) 25 gm SLOW IVP PRN PRN PRN Reason: Hypoglycemia Enoxaparin Sodium (Lovenox) 40 mg SC 0900 [facility] Last Admin: 03/06/18 08:38 Dose: 40 mg Famotidine (Pepcid) 20 mg PO BID [facility] Last Admin: 03/06/18 08:38 Dose: 20 mg Glucagon (Glucagon) 1 mg IM PRN PRN PRN Reason: Hypoglycemia Guaifenesin (Mucinex) 600 mg PO Q12HR [facility] Last Admin: 03/06/18 08:38 Dose: 600 mg Guaifenesin (Robitussin Sf) 200 mg PO Q4H PRN PRN Reason: Cough Last Admin: 03/06/18 05:59 Dose: 200 mg Lisinopril/HCTZ (Prinizide 20-12.5) 1 tab PO DAILY [facility] Last Admin: 03/06/18 08:52 Dose: 1 tab Hydralazine HCl (Apresoline) 10 mg SLOW IVP Q4H PRN PRN Reason: Systolic BP > 180 Levofloxacin 750 mg/ Device 150 mls @ 100 mls/hr IVPB Q24HR@0900 [facility] Last Admin: 03/06/18 08:38 Dose: 150 mls Dextrose/Water (D5w) 1,000 mls @ 0 mls/hr IV .Q0M PRN PRN Reason: Hypoglycemia Insulin Human Isoph/Insulin Regular (Humulin 70/30) 20 units SC BID [facility] Last Admin: 03/06/18 08:38 Dose: 20 unit Insulin Human Lispro (Humalog) 0 units SC .AGGRESSIVE SLIDING PRN PRN Reason: Aggressive Correctional Scale Last Admin: 03/06/18 06:08 Dose: 9 unit Insulin Human Lispro (Humalog) 0 units SC .BEDTIME SLIDING SC PRN PRN Reason: Bedtime Correctional Scale Last Admin: 03/05/18 21:21 Dose: 5 unit Loperamide HCl (Imodium) 2 mg PO PRN PRN PRN Reason: Diarrhea/Loose Stools Loperamide HCl (Imodium) 2 mg PO PRN PRN PRN Reason: Diarrhea/Loose Stools Loratadine (Claritin) 10 mg PO DAILYPRN PRN PRN Reason: Sinus Symptoms Magnesium Hydroxide (Milk Of Magnesium) 30 ml PO DAILYPRN PRN PRN Reason: Constipation Metformin HCl (Glucophage) 500 mg PO BID-WM [facility] Last Admin: 03/06/18 08:38 Dose: 500 mg Methylprednisolone Sodium Succinate (Solu-Medrol) 40 mg IVP Q6HR [facility] Last Admin: 03/06/18 05:59 Dose: 40 mg Mineral Oil/White Petrolatum (Eucerin Cream) 0 gm TOP BIDPRN PRN PRN Reason: Dry Skin Mometasone Furoate/Formoterol Fumar (Dulera 200 Mcg/5 Mcg Inhaler) 2 puff INH BID-RT [facility] Last Admin: 03/06/18 06:29 Dose: 2 puff Morphine Sulfate (Morphine) 2 mg SLOW IVP Q4H PRN PRN Reason: Pain Nicotine (Nicoderm Patch) 21 mg TD DAILY [facility] Last Admin: 03/06/18 08:38 Dose: 21 mg Ondansetron HCl (Zofran Odt) 4 mg PO Q6H PRN PRN Reason: Nausea/Vomiting Ondansetron HCl (Zofran) 4 mg IVP Q6H PRN PRN Reason: Nausea/Vomiting Phenol (Chloraseptic [place] 180 Ml Bot) 0 ml PO PRN PRN PRN Reason: Sore Throat Saccharomyces Boulardii (Florastor) 250 mg PO DAILY [facility] Last Admin: 03/06/18 08:38 Dose: 250 mg Senna (Senokot) 2 tab PO HSPRN PRN PRN Reason: Constipation Sodium Chloride ([place] Nasal [place] 0.65%) 0 ml EA NARE QIDPRN PRN PRN Reason: Nasal Congestion Sodium Chloride (Flush - Normal Saline) 10 ml IVF PRN PRN PRN Reason: Saline Flush Last Admin: 03/06/18 06:00 Dose: 10 ml Zolpidem Tartrate (Ambien) 5 mg PO HSPRN PRN PRN Reason: Insomnia
[2018-03-06] MEDS: Atorvastatin Calcium 10 MG TAB PO SCH (21:42)
[2018-03-07] MEDS: HumaLOG 300 UNITS/3 ML VIAL SC PRN ×4 (05:54→20:02)
[2018-03-07] MEDS: Mometasone/Formoterol 120 PUFF INHALER INH SCH ×2 (07:03→19:06)
[2018-03-07] MEDS: Lisinopril/Hydrochlorothiazide 20 mg/12.5 mg Tablet PO SCH (08:01)
[2018-03-07] MEDS: guaiFENesin ER 600 MG TAB PO SCH ×2 (08:01→19:34)
[2018-03-07] MEDS: Saccharomyces boulardii 250 MG CAP PO SCH (08:01)
[2018-03-07] MEDS: Enoxaparin Sodium 40 MG/0.4 ML SYRINGE SC SCH (08:02)
[2018-03-07] MEDS: metFORMIN 500 MG TAB PO SCH ×2 (08:02→16:34)
[2018-03-07] MEDS: Carvedilol 25 MG TAB PO SCH ×2 (08:02→16:34)
[2018-03-07] MEDS: Famotidine 20 MG TAB PO SCH ×2 (08:02→19:34)
[2018-03-07] MEDS: Insulin NPH/Reg Insulin Hm 300 UNITS/3 ML VIAL SC SCH ×2 (08:04→19:59)
[2018-03-07] MEDS: Nicotine 21 MG PATCH TD SCH (08:07)
--- NOTE | 2018-03-07 09:41 | PDOC.PN ---
- Subjective Encounter Start Date: 03/07/18 Encounter Start Time: 08:10 Patient seen and examined. No new complaints. No overnight events - Objective Resuscitation Status: Resuscitation Status FULL:Full Resuscitation MAR Reviewed: Yes Vital Signs & Weight: Vital Signs (12 hours) Temp Pulse Resp BP BP Pulse Ox 03/07/18 08:01 70 178/79 H 03/07/18 08:00 97.7 F 54 L 16 128/81 98 03/07/18 07:03 99 03/07/18 07:01 70 16 99 03/07/18 02:22 72 16 94 L 03/07/18 00:00 154/75 H 03/06/18 22:34 73 18 95 Weight Weight 265 lb 1.6 oz I&O: 03/06/18 03/07/18 03/08/18 06:59 06:59 06:59 Intake Total 822 2560 Balance 822 2560 Result Diagrams: 03/06/18 04:19 03/06/18 04:19 Additional Labs: Accuchecks 03/07/18 03/06/18 03/06/18 04:31 20:28 16:26 POC Glucose 264 H 239 H 202 H 03/06/18 11:09 POC Glucose 226 H Radiology Reviewed by me: Yes (echo report noted) Phys Exam - Physical Examination Constitutional: NAD HEENT: PERRLA, moist MMs, sclera anicteric Neck: no JVD, supple Respiratory: no wheezing, no rales, no rhonchi reduced air entry Cardiovascular: RRR, no significant murmur, no rub Gastrointestinal: soft, non-tender, no distention, positive bowel sounds obesity+ Musculoskeletal: no edema, pulses present Neurological: non-focal, normal sensation, moves all 4 limbs Psychiatric: normal affect, A&O x 3 Skin: no rash, normal turgor Dx/Plan (1) Acute respiratory failure with hypoxia Code(s): J96.01 - ACUTE RESPIRATORY FAILURE WITH HYPOXIA Status: Acute (2) COPD exacerbation Code(s): J44.1 - CHRONIC OBSTRUCTIVE PULMONARY DISEASE W (ACUTE) EXACERBATION Status: Acute (3) Community acquired bacterial pneumonia Code(s): J15.9 - UNSPECIFIED BACTERIAL PNEUMONIA Status: Acute (4) Elevated brain natriuretic peptide (BNP) level Code(s): R79.89 - OTHER SPECIFIED ABNORMAL FINDINGS OF BLOOD CHEMISTRY Status : Acute (5) Diabetes type 2, controlled Code(s): E11.9 - TYPE 2 DIABETES MELLITUS WITHOUT COMPLICATIONS Status: Chronic (6) Dyslipidemia Code(s): E78.5 - HYPERLIPIDEMIA, UNSPECIFIED Status: Chronic (7) Hypertension Code(s): I10 - ESSENTIAL (PRIMARY) HYPERTENSION Status: Chronic (8) Obesity (BMI 30-39.9) Code(s): E66.9 - OBESITY, UNSPECIFIED Status: Chronic (9) Tobacco abuse Code(s): Z72.0 - TOBACCO USE Status: Chronic - Plan cont current plan of care, continue antibiotics, respiratory therapy * reduce solumedrol 20 mg iv q 8 hourly * continue current iv antibiotics and current optimum medical therapy for COPD as below * today will check her oxygen saturation on room air after walking and assess her for her need for home oxygen * medication reviewed as below * symptomatic treatment. Review of Systems - Review of Systems Constitutional: negative: fever, chills, sweats, weakness, malaise, other Eyes: negative: Pain, Vision Change, Conjunctivae Inflammation, Eyelid Inflammation, Redness, Other ENT: negative: Ear Pain, Ear Discharge, Nose Pain, Nose Discharge, Nose Congestion, Mouth Pain, Mouth Swelling, Throat Pain, Throat Swelling, Other Respiratory: Cough, SOB with Excertion. negative: Dry, Shortness of Breath, Hemoptysis, Pleuritic Pain, Sputum, Wheezing Cardiovascular: negative: chest pain, palpitations, orthopnea, paroxysmal nocturnal dyspnea, edema, light headedness, other Gastrointestinal: negative: Nausea, Vomiting, Abdominal Pain, Diarrhea, Constipation, Melena, Hematochezia, Other Genitourinary: negative: Dysuria, Frequency, Incontinence, Hematuria, Retention , Other Musculoskeletal: negative: Neck Pain, Shoulder Pain, Arm Pain, Back Pain, Hand Pain, Leg Pain, Foot Pain, Other Skin: negative: Rash, Lesions, Nico, Bruising, Other - Medications/Allergies Allergies/Adverse Reactions: Allergies Allergy/AdvReac Type Severity Reaction Status Date / Time ketorolac [From Toradol] Allergy Verified 03/05/18 14:16 Penicillins Allergy Rash Verified 03/05/18 14:16 sulfamethoxazole Allergy Rash Verified 03/05/18 14:16 [From Bactrim] trimethoprim [From Bactrim] Allergy Verified 03/05/18 14:16 Medications: Current Medications Acetaminophen (Tylenol) 650 mg PO Q4H PRN PRN Reason: Headache/Fever or Pain Last Admin: 03/06/18 21:43 Dose: 650 mg Al Hydroxide/Mg Hydroxide (Maalox) 30 ml PO Q6H PRN PRN Reason: Heartburn or Indigestion Albuterol/Ipratropium (Duoneb) 3 ml NEB [id number] [facility] Last Admin: 03/07/18 07:01 Dose: 3 ml Artificial Tears (Tears Renewed 15ml Bottle) 0 drop EA EYE PRN PRN PRN Reason: Dry Eyes Atorvastatin Calcium (Lipitor) 10 mg PO HS [facility] Last Admin: 03/06/18 21:42 Dose: 10 mg Carvedilol (Coreg) 25 mg PO BID-[facility] Last Admin: 03/07/18 08:02 Dose: 25 mg Clonidine (Catapres) 0.1 mg PO Q4H PRN PRN Reason: Systolic BP > 180 Dextrose/Water (Dextrose 50%) 25 gm SLOW IVP PRN PRN PRN Reason: Hypoglycemia Enoxaparin Sodium (Lovenox) 40 mg SC 0900 [facility] Last Admin: 03/07/18 08:02 Dose: 40 mg Famotidine (Pepcid) 20 mg PO BID [facility] Last Admin: 03/07/18 08:02 Dose: 20 mg Glucagon (Glucagon) 1 mg IM PRN PRN PRN Reason: Hypoglycemia Guaifenesin (Mucinex) 600 mg PO Q12HR [facility] Last Admin: 03/07/18 08:01 Dose: 600 mg Guaifenesin (Robitussin Sf) 200 mg PO Q4H PRN PRN Reason: Cough Last Admin: 03/06/18 05:59 Dose: 200 mg Lisinopril/HCTZ (Prinizide 20-12.5) 1 tab PO DAILY [facility] Last Admin: 03/07/18 08:01 Dose: 1 tab Hydralazine HCl (Apresoline) 10 mg SLOW IVP Q4H PRN PRN Reason: Systolic BP > 180 Levofloxacin 750 mg/ Device 150 mls @ 100 mls/hr IVPB Q24HR@0900 [facility] Last Admin: 03/07/18 08:03 Dose: 150 mls Dextrose/Water (D5w) 1,000 mls @ 0 mls/hr IV .Q0M PRN PRN Reason: Hypoglycemia Insulin Human Isoph/Insulin Regular (Humulin 70/30) 20 units SC BID [facility] Last Admin: 03/07/18 08:04 Dose: 20 unit Insulin Human Lispro (Humalog) 0 units SC .AGGRESSIVE SLIDING PRN PRN Reason: Aggressive Correctional Scale Last Admin: 03/07/18 05:54 Dose: 9 unit Insulin Human Lispro (Humalog) 0 units SC .BEDTIME SLIDING SC PRN PRN Reason: Bedtime Correctional Scale Last Admin: 03/06/18 21:50 Dose: 2 unit Loperamide HCl (Imodium) 2 mg PO PRN PRN PRN Reason: Diarrhea/Loose Stools Loperamide HCl (Imodium) 2 mg PO PRN PRN PRN Reason: Diarrhea/Loose Stools Loratadine (Claritin) 10 mg PO DAILYPRN PRN PRN Reason: Sinus Symptoms Last Admin: 03/06/18 23:28 Dose: 10 mg Magnesium Hydroxide (Milk Of Magnesium) 30 ml PO DAILYPRN PRN PRN Reason: Constipation Metformin HCl (Glucophage) 500 mg PO BID-[facility] Last Admin: 03/07/18 08:02 Dose: 500 mg Methylprednisolone Sodium Succinate (Solu-Medrol) 20 mg IVP Q8HR [facility] Mineral Oil/White Petrolatum (Eucerin Cream) 0 gm TOP BIDPRN PRN PRN Reason: Dry Skin Mometasone Furoate/Formoterol Fumar (Dulera 200 Mcg/5 Mcg Inhaler) 2 puff INH BID-RT [facility] Last Admin: 03/07/18 07:03 Dose: 2 puff Morphine Sulfate (Morphine) 2 mg SLOW IVP Q4H PRN PRN Reason: Pain Nicotine (Nicoderm Patch) 21 mg TD DAILY [facility] Last Admin: 03/07/18 08:07 Dose: 21 mg Ondansetron HCl (Zofran Odt) 4 mg PO Q6H PRN PRN Reason: Nausea/Vomiting Ondansetron HCl (Zofran) 4 mg IVP Q6H PRN PRN Reason: Nausea/Vomiting Phenol (Chloraseptic [place] 180 Ml Bot) 0 ml PO PRN PRN PRN Reason: Sore Throat Saccharomyces Boulardii (Florastor) 250 mg PO DAILY [facility] Last Admin: 03/07/18 08:01 Dose: 250 mg Senna (Senokot) 2 tab PO HSPRN PRN PRN Reason: Constipation Sodium Chloride ([place] Nasal [place] 0.65%) 0 ml EA NARE QIDPRN PRN PRN Reason: Nasal Congestion Sodium Chloride (Flush - Normal Saline) 10 ml IVF PRN PRN PRN Reason: Saline Flush Last Admin: 03/06/18 06:00 Dose: 10 ml Zolpidem Tartrate (Ambien) 5 mg PO HSPRN PRN PRN Reason: Insomnia
[2018-03-07] MEDS: Acetaminophen 325 MG TAB PO PRN (14:34)
[2018-03-07] MEDS ORDERED: HYDROcodone/Acetaminophen 5/325 mg Tablet PO SCH (19:30)
[2018-03-07] MEDS: Atorvastatin Calcium 10 MG TAB PO SCH (19:34)
[2018-03-08] MEDS ORDERED: Cyclobenzaprine 10 MG TAB PO SCH (01:15)
[2018-03-08] MEDS: HumaLOG 300 UNITS/3 ML VIAL SC PRN ×3 (05:29→16:32)
[2018-03-08] MEDS: Mometasone/Formoterol 120 PUFF INHALER INH SCH ×2 (06:16→18:49)
[2018-03-08] MEDS: Saccharomyces boulardii 250 MG CAP PO SCH (09:08)
[2018-03-08] MEDS: Carvedilol 25 MG TAB PO SCH ×2 (09:08→16:32)
[2018-03-08] MEDS: metFORMIN 500 MG TAB PO SCH ×2 (09:08→16:32)
[2018-03-08] MEDS: Enoxaparin Sodium 40 MG/0.4 ML SYRINGE SC SCH (09:08)
[2018-03-08] MEDS: guaiFENesin ER 600 MG TAB PO SCH ×2 (09:08→20:27)
[2018-03-08] MEDS: Famotidine 20 MG TAB PO SCH ×2 (09:09→20:27)
[2018-03-08] MEDS: Lisinopril/Hydrochlorothiazide 20 mg/12.5 mg Tablet PO SCH (09:09)
[2018-03-08] MEDS: Insulin NPH/Reg Insulin Hm 300 UNITS/3 ML VIAL SC SCH ×2 (09:10→20:27)
[2018-03-08] MEDS: Nicotine 21 MG PATCH TD SCH (09:10)
[2018-03-08] MEDS ORDERED: Bisacodyl 10 MG SUPP PR PRN (09:36)
[2018-03-08] MEDS ORDERED: Polyethylene Glycol 3350 17 GM Packet PO SCH (09:45)
[2018-03-08] MEDS ORDERED: Furosemide 40 MG/4 ML VIAL SLOW IVP SCH (09:45)
[2018-03-08] MEDS ORDERED: Clopidogrel Bisulfate 75 MG TAB PO SCH (10:00)
[2018-03-08] MEDS ORDERED: Lisinopril 20 MG TAB PO SCH (10:00)
--- NOTE | 2018-03-08 11:03 | PDOC.PN ---
- Subjective Encounter Start Date: 03/08/18 Encounter Start Time: 08:30 feels constipated, has edema leg, has back pain - Objective Resuscitation Status: Resuscitation Status FULL:Full Resuscitation MAR Reviewed: Yes Vital Signs & Weight: Vital Signs (12 hours) Temp Pulse Resp BP BP Pulse Ox 03/08/18 10:45 158/81 H 03/08/18 09:37 74 20 97 03/08/18 09:09 65 176/90 H 03/08/18 07:53 98.2 F 92 18 176/90 H 92 L 03/08/18 06:16 73 16 92 L 03/08/18 06:14 73 16 92 L 03/08/18 02:50 71 16 90 L Weight Weight 265 lb 1.6 oz I&O: 03/07/18 03/08/18 03/09/18 06:59 06:59 06:59 Intake Total 2560 890 Balance 2560 890 Result Diagrams: 03/06/18 04:19 03/06/18 04:19 Additional Labs: Accuchecks 03/08/18 03/07/18 03/07/18 05:28 19:51 17:11 POC Glucose 181 H 244 H 248 H 03/07/18 11:25 POC Glucose 238 H Phys Exam - Physical Examination Constitutional: NAD HEENT: PERRLA, moist MMs, sclera anicteric Neck: no JVD, supple Respiratory: no wheezing, no rales, no rhonchi Cardiovascular: RRR, no significant murmur, no rub Gastrointestinal: soft, non-tender, no distention, positive bowel sounds Musculoskeletal: pulses present, edema present Neurological: non-focal, normal sensation, moves all 4 limbs Psychiatric: normal affect, A&O x 3 Skin: no rash, normal turgor Dx/Plan (1) Acute respiratory failure with hypoxia Code(s): J96.01 - ACUTE RESPIRATORY FAILURE WITH HYPOXIA Status: Resolved (2) COPD exacerbation Code(s): J44.1 - CHRONIC OBSTRUCTIVE PULMONARY DISEASE W (ACUTE) EXACERBATION Status: Acute (3) Community acquired bacterial pneumonia Code(s): J15.9 - UNSPECIFIED BACTERIAL PNEUMONIA Status: Acute (4) Elevated brain natriuretic peptide (BNP) level Code(s): R79.89 - OTHER SPECIFIED ABNORMAL FINDINGS OF BLOOD CHEMISTRY Status : Acute (5) Diabetes type 2, controlled Code(s): E11.9 - TYPE 2 DIABETES MELLITUS WITHOUT COMPLICATIONS Status: Chronic (6) Dyslipidemia Code(s): E78.5 - HYPERLIPIDEMIA, UNSPECIFIED Status: Chronic (7) Hypertension Code(s): I10 - ESSENTIAL (PRIMARY) HYPERTENSION Status: Chronic (8) Obesity (BMI 30-39.9) Code(s): E66.9 - OBESITY, UNSPECIFIED Status: Chronic (9) Tobacco abuse Code(s): Z72.0 - TOBACCO USE Status: Chronic - Plan cont current plan of care, continue antibiotics, respiratory therapy * treat constipation with miralax and dulcolax suppository * add lasix today, may be early col-pulmonale * flexeril for back pain, worse with coughing * medication reviewed as below * symptomatic treatment * possible discharge soon. Review of Systems - Review of Systems Constitutional: negative: fever, chills, sweats, weakness, malaise, other Eyes: negative: Pain, Vision Change, Conjunctivae Inflammation, Eyelid Inflammation, Redness, Other ENT: negative: Ear Pain, Ear Discharge, Nose Pain, Nose Discharge, Nose Congestion, Mouth Pain, Mouth Swelling, Throat Pain, Throat Swelling, Other Respiratory: negative: Cough, Dry, Shortness of Breath, Hemoptysis, SOB with Excertion, Pleuritic Pain, Sputum, Wheezing Cardiovascular: edema. negative: chest pain, palpitations, orthopnea, paroxysmal nocturnal dyspnea, light headedness, other Gastrointestinal: Constipation Genitourinary: negative: Dysuria, Frequency, Incontinence, Hematuria, Retention , Other Musculoskeletal: Back Pain. negative: Neck Pain, Shoulder Pain, Arm Pain, Hand Pain, Leg Pain, Foot Pain, Other Skin: negative: Rash, Lesions, Nico, Bruising, Other - Medications/Allergies Allergies/Adverse Reactions: Allergies Allergy/AdvReac Type Severity Reaction Status Date / Time ketorolac [From Toradol] Allergy Verified 03/05/18 14:16 Penicillins Allergy Rash Verified 03/05/18 14:16 sulfamethoxazole Allergy Rash Verified 03/05/18 14:16 [From Bactrim] trimethoprim [From Bactrim] Allergy Verified 03/05/18 14:16 Medications: Current Medications Acetaminophen (Tylenol) 650 mg PO Q4H PRN PRN Reason: Headache/Fever or Pain Last Admin: 09/04/18 14:34 Dose: 650 mg Al Hydroxide/Mg Hydroxide (Maalox) 30 ml PO Q6H PRN PRN Reason: Heartburn or Indigestion Albuterol/Ipratropium (Duoneb) 3 ml NEB [id number] [facility] Last Admin: 03/08/18 09:37 Dose: 3 ml Artificial Tears (Tears Renewed 15ml Bottle) 0 drop EA EYE PRN PRN PRN Reason: Dry Eyes Atorvastatin Calcium (Lipitor) 10 mg PO HS [facility] Last Admin: 03/07/18 19:34 Dose: 10 mg Bisacodyl (Dulcolax) 10 mg AR Q8H PRN PRN Reason: Constipation Carvedilol (Coreg) 25 mg PO BID-[facility] Last Admin: 03/08/18 09:08 Dose: 25 mg Clonidine (Catapres) 0.1 mg PO Q4H PRN PRN Reason: Systolic BP > 180 Last Admin: 03/07/18 18:25 Dose: 0.1 mg Clopidogrel Bisulfate (Plavix) 75 mg PO NOW [facility] Stop: 03/08/18 12:00 Last Admin: 03/08/18 10:45 Dose: 75 mg Clopidogrel Bisulfate (Plavix) 75 mg PO DAILY [facility] Cyclobenzaprine HCl (Flexeril) 10 mg PO TIDPRN PRN PRN Reason: Muscle Spasm Dextrose/Water (Dextrose 50%) 25 gm SLOW IVP PRN PRN PRN Reason: Hypoglycemia Enoxaparin Sodium (Lovenox) 40 mg SC 0900 [facility] Last Admin: 03/08/18 09:08 Dose: 40 mg Famotidine (Pepcid) 20 mg PO BID [facility] Last Admin: 03/08/18 09:09 Dose: 20 mg Furosemide (Lasix) 40 mg SLOW IVP 0945 [facility] Stop: 03/08/18 12:00 Last Admin: 03/08/18 10:45 Dose: 40 mg Glucagon (Glucagon) 1 mg IM PRN PRN PRN Reason: Hypoglycemia Guaifenesin (Mucinex) 600 mg PO Q12HR [facility] Last Admin: 03/08/18 09:08 Dose: 600 mg Guaifenesin (Robitussin Sf) 200 mg PO Q4H PRN PRN Reason: Cough Last Admin: 03/06/18 05:59 Dose: 200 mg Lisinopril/HCTZ (Prinizide 20-12.5) 1 tab PO DAILY [facility] Last Admin: 03/08/18 09:09 Dose: 1 tab Hydralazine HCl (Apresoline) 10 mg SLOW IVP Q4H PRN PRN Reason: Systolic BP > 180 Levofloxacin 750 mg/ Device 150 mls @ 100 mls/hr IVPB Q24HR@0900 [facility] Last Admin: 03/08/18 09:09 Dose: 150 mls Dextrose/Water (D5w) 1,000 mls @ 0 mls/hr IV .Q0M PRN PRN Reason: Hypoglycemia Insulin Human Isoph/Insulin Regular (Humulin 70/30) 20 units SC BID [facility] Last Admin: 03/08/18 09:10 Dose: 20 unit Insulin Human Lispro (Humalog) 0 units SC .AGGRESSIVE SLIDING PRN PRN Reason: Aggressive Correctional Scale Last Admin: 03/08/18 05:29 Dose: 3 unit Insulin Human Lispro (Humalog) 0 units SC .BEDTIME SLIDING SC PRN PRN Reason: Bedtime Correctional Scale Last Admin: 03/07/18 20:02 Dose: 2 unit Lisinopril (Zestril) 40 mg PO NOW [facility] Stop: 03/08/18 12:00 Last Admin: 03/08/18 10:45 Dose: 40 mg Lisinopril (Zestril) 40 mg PO DAILY [facility] Loperamide HCl (Imodium) 2 mg PO PRN PRN PRN Reason: Diarrhea/Loose Stools Loperamide HCl (Imodium) 2 mg PO PRN PRN PRN Reason: Diarrhea/Loose Stools Loratadine (Claritin) 10 mg PO DAILYPRN PRN PRN Reason: Sinus Symptoms Last Admin: 03/06/18 23:28 Dose: 10 mg Magnesium Hydroxide (Milk Of Magnesium) 30 ml PO DAILYPRN PRN PRN Reason: Constipation Metformin HCl (Glucophage) 500 mg PO BID-[facility] Last Admin: 03/08/18 09:08 Dose: 500 mg Methylprednisolone Sodium Succinate (Solu-Medrol) 20 mg IVP Q8HR [facility] Last Admin: 03/08/18 05:27 Dose: 20 mg Mineral Oil/White Petrolatum (Eucerin Cream) 0 gm TOP BIDPRN PRN PRN Reason: Dry Skin Mometasone Furoate/Formoterol Fumar (Dulera 200 Mcg/5 Mcg Inhaler) 2 puff INH BID-RT [facility] Last Admin: 03/08/18 06:16 Dose: 2 puff Morphine Sulfate (Morphine) 2 mg SLOW IVP Q4H PRN PRN Reason: Pain Last Admin: 03/08/18 05:28 Dose: 2 mg Nicotine (Nicoderm Patch) 21 mg TD DAILY [facility] Last Admin: 03/08/18 09:10 Dose: 21 mg Ondansetron HCl (Zofran Odt) 4 mg PO Q6H PRN PRN Reason: Nausea/Vomiting Ondansetron HCl (Zofran) 4 mg IVP Q6H PRN PRN Reason: Nausea/Vomiting Phenol (Chloraseptic [place] 180 Ml Bot) 0 ml PO PRN PRN PRN Reason: Sore Throat Polyethylene Glycol (Miralax) 17 gm PO NOW [facility] Stop: 03/08/18 12:00 Last Admin: 03/08/18 10:45 Dose: 17 gm Saccharomyces Boulardii (Florastor) 250 mg PO DAILY [facility] Last Admin: 03/08/18 09:08 Dose: 250 mg Senna (Senokot) 2 tab PO HSPRN PRN PRN Reason: Constipation Last Admin: 03/07/18 21:35 Dose: 2 tab Sodium Chloride ([place] Nasal [place] 0.65%) 0 ml EA NARE QIDPRN PRN PRN Reason: Nasal Congestion Sodium Chloride (Flush - Normal Saline) 10 ml IVF PRN PRN PRN Reason: Saline Flush Last Admin: 03/08/18 09:09 Dose: 10 ml Zolpidem Tartrate (Ambien) 5 mg PO HSPRN PRN PRN Reason: Insomnia
[2018-03-08] MEDS: Cyclobenzaprine 10 MG TAB PO PRN ×2 (16:32→23:40)
[2018-03-08] MEDS: predniSONE 20 MG TAB PO SCH (16:32)
[2018-03-08] MEDS: Atorvastatin Calcium 10 MG TAB PO SCH (20:27)
[2018-03-08] MEDS: Acetaminophen 325 MG TAB PO PRN ×2 (20:27→23:40)
[2018-03-09] MEDS ORDERED: HYDROcodone/Acetaminophen 10/325 mg Tablet PO SCH (03:45)
[2018-03-09] MEDS: Saccharomyces boulardii 250 MG CAP PO SCH (08:06)
[2018-03-09] MEDS: Lisinopril/Hydrochlorothiazide 20 mg/12.5 mg Tablet PO SCH (08:06)
[2018-03-09] MEDS: predniSONE 20 MG TAB PO SCH (08:06)
[2018-03-09] MEDS: Famotidine 20 MG TAB PO SCH (08:06)
[2018-03-09] MEDS: guaiFENesin ER 600 MG TAB PO SCH (08:06)
[2018-03-09] MEDS: Carvedilol 25 MG TAB PO SCH (08:06)
[2018-03-09] MEDS: metFORMIN 500 MG TAB PO SCH (08:06)
[2018-03-09] MEDS: Nicotine 21 MG PATCH TD SCH (08:07)
[2018-03-09] MEDS: Enoxaparin Sodium 40 MG/0.4 ML SYRINGE SC SCH (08:07)
[2018-03-09] MEDS: Insulin NPH/Reg Insulin Hm 300 UNITS/3 ML VIAL SC SCH (08:07)
[2018-03-09] MEDS: Mometasone/Formoterol 120 PUFF INHALER INH SCH (08:12)
[2018-03-09] MEDS ORDERED: Clopidogrel Bisulfate 75 MG TAB PO SCH (09:00)
[2018-03-09] MEDS ORDERED: Fleet Enema 133 ML BOT PR SCH (09:00)
[2018-03-09] MEDS ORDERED: Lisinopril 20 MG TAB PO SCH (09:00)
--- NOTE | 2018-03-09 10:07 | DIS ---
DATE OF ADMISSION: 03/05/2018 DATE OF DISCHARGE: 03/09/2018 PRIMARY CARE PHYSICIAN: Yadira Barlow M.D. DISCHARGE DISPOSITION: Home. PRIMARY DISCHARGE DIAGNOSES: Community-acquired bacterial pneumonia, chronic obstructive pulmonary d isease exacerbation, acute hypoxic respiratory failure improved, elevated BNP likely due to diastolic dysfunction, constipation resolved, back sprain due to excessive cough. SECONDARY DISCHARGE DIAGNOSES: Ongoing tobacco abuse disorder, chronic obstructive pulmonary disease , diabetes type 2, hypertension, dyslipidemia, obesity with body mass index 39. PRIMARY PROCEDURE/OPERATION: None. RADIOLOGICAL INVESTIGATION: Chest x-ray on admission showed resolving left lower lobe pneumonia. Ec hocardiography showed normal EF, diastolic dysfunction. SIGNIFICANT LABORATORY DATA: WBC 13.8, hemoglobin 15.2, platelet 225. Sodium 131, potassium 4.9, BU N 31, creatinine 1.26, calcium 8.0. LFT normal. Blood culture negative. DISCHARGE MEDICATIONS: Ventolin inhaler 2 puffs q.6 hourly p.r.n., Lipitor 10 mg p.o. at bedtime, Co reg 25 mg p.o. b.i.d., insulin 70/30 20 units subcu b.i.d., Prinzide 20/12.5 one tablet p.o. b.i.d., metformin 500 mg p.o. b.i.d., Mucinex 600 mg p.o. b.i.d. for 7 days, Flexeril 10 mg t.i.d. p.r.n., La six 40 mg p.o. daily, DuoNeb q.6 hourly and p.r.n. Levaquin 750 mg p.o. daily for 5 days, Dulera 2 pu ffs inhalation b.i.d., prednisone 40 mg p.o. daily for 5 days, then 20 mg p.o. daily for 5 days, then 5 mg p.o. daily for 5 days, Florastor 250 mg p.o. daily for 5 days. CONTRAINDICATIONS: None. CODE STATUS: FULL CODE. INPATIENT CONSULTANTS: None. ALLERGIES: TORADOL, PENICILLIN, SULFA DRUGS. DISCHARGE PLAN: Post hospital, patient will follow up with primary care physician in 1 week. HOSPITAL COURSE: A 62-year-old female with above-mentioned medical problem, who came to emergency ro om a couple of days before admission for fever, cough, and shortness of breath. She was diagnosed wi th COPD exacerbation and left lower lobe pneumonia. She was given prednisone and Levaquin therapy. She was not feeling any better and she was having excessive cough with back pain as well as she was f eeling more and more shortness of breath and that is why she came back to ER again. At that time, jennifer li was hypoxic. She was in respiratory failure as well as COPD flareup. She was admitted to medical floor. She was treated with DuoNeb, Dulera, IV Levaquin, Solu-Medrol and Mucinex. The patient on pa in was controlled with morphine and because of morphine patient became constipated while in hospital that was treated while in hospital. She also had edema over lower extremity that is why we did echoc ardiography for elevated BNP and we suspected diastolic dysfunction with diastolic heart failure and that is why we added Lasix upon discharge. The patient is at also risk for developing cor pulmonale in future. Her oxygen requirement was assessed while in hospital, but by the time of discharge, she was maintaining saturation normal on room air. We had extensive counseling to avoid smoking upon dis charge. At this point, patient is at risk for future respiratory failure, chronic with cor pulmonale if she c ontinued to smoke. The patient is stabilized medically while in hospital at this point and she is go od to go home. Before discharge, we did a CBC and BMP. The result is pending. The patient is on ro om air. She is tolerating p.o. well. She is constipated and that is why we are giving her a Fleet e nema today and she will continue Flexeril and topical pain medication as well as [id number] pelon n medication for her back sprain from cough. The patient is seen and examined at bedside today. All review of system reviewed with her and negati ve. PHYSICAL EXAMINATION: VITAL SIGNS: Currently, temperature 98.1, pulse 63, blood pressure 177/97, saturation 90% on room ai r, weight 265 pounds. GENERAL: The patient is currently alert, awake, no obvious acute distress. HEAD: Normocephalic, atraumatic. EYES: Pupils round, reactive to light. Extraocular muscle intact. ENT: Oropharynx within normal limits. LUNGS: Clear. No wheeze, no rhonchi, no rales. CARDIAC: S1, S2 regular. No murmur. ABDOMEN: Obesity present. Bowel sounds present. EXTREMITIES: Trace edema. NEUROLOGIC: Nonfocal examination.
[2018-03-09 10:16] LABS: #Eosinphils 0.1 thou/uL (0.0-0.7); #Lymphocytes 1.8 thou/uL (1.20-3.40); #Monocytes 0.9 thou/uL (0.11-0.59); #Neutrophils 10.4 thou/uL (1.40-6.50); %Eosinophils 0.7 % (0.0-10.0); %Lymphocytes 13.4 % (21.0-51.0); Hemoglobin 14.9 g/dL (12.0-16.0); Mean Corpuscular HGB CONC 32.3 g/dL (32.0-36.0); Mean Corpuscular Hemoglobin 29.5 pg (27.0-31.0); Mean Corpuscular Volume 91.3 fL (78.0-98.0); Mean Platelet Volume 7.5 fL (7.4-10.4); Platelet Count 195 thou/uL (130-400); RBC Distribution Width 12.4 % (11.5-14.5); Red Blood Cell (RBC) Count 5.06 mill/uL (4.20-5.40); White Blood Cell (WBC) Count 13.1 thou/uL (4.8-10.8)
[2018-03-09 10:41] LABS: Anion Gap 13 mmol/L (10-20); BUN (Urea Nitrogen) 30 mg/dL (9.8-20.1); Calc. Creatinine Clearance 103 mL/min (70-130); Calcium 8.4 mg/dL (7.8-10.44); Carbon Dioxide 35 mmol/L (23-31); Chloride 83 mmol/L (98-107); Estimated GFR-MDRD 52; Glucose 106 mg/dL (80-115); Potassium 4.5 mmol/L (3.5-5.1); Sodium 126 mmol/L (136-145)
[2018-03-09 12:27] VITALS: BP 144/85; TEMP 98.2
--- NOTE | 2018-03-11 20:13 | EKG ---
Test Reason : SOB Blood Pressure : / mmHG Vent. Rate : 081 BPM Atrial Rate : 081 BPM P-R Int : 124 ms QRS Dur : 084 ms QT Int : 386 ms P-R-T Axes : 055 080 072 degrees QTc Int : 448 ms Normal sinus rhythm Normal ECG Confirmed by CURRY SCHAFFER ([id number]), editor map ANDERS BROWN ([id number]) on 03/11/2018 8:13:15 PM Referred By: Confirmed By:CURRY SCHAFFER
== END 2018-03-09 13:00 | disposition home or self-care (01) | DRG 189 ==
LOC: ERS 08:50 → T4-A 11:08
PROVIDERS: ADMIT Internal Medicine; ATTEND Internal Medicine
DX: J96.01 Acute respiratory failure with hypoxia (principal); J18.9 Pneumonia, unspecified organism; J44.0 Chronic obstructive pulmonary disease with (acute) lower respiratory infection; J44.1 Chronic obstructive pulmonary disease with (acute) exacerbation; F17.210 Nicotine dependence, cigarettes, uncomplicated; K21.9 Gastro-esophageal reflux disease without esophagitis; E11.9 Type 2 diabetes mellitus without complications; Z79.4 Long term (current) use of insulin; E78.5 Hyperlipidemia, unspecified; E66.9 Obesity, unspecified; Z68.39 Body mass index [BMI] 39.0-39.9, adult
CPT/HCPCS: 36415; 36416; 71045; 80048; 80053; 82550; 82553; 83880; 84484; 85025; 87040; 93005; 93306; 94640; 94760; 96365; 96366; 96375; A4216; J1200; J1650; J1885; J1940; J1956; J2270; J2920; J2930; J7506; J7620

== ENCOUNTER 2018-03-16 05:46 | Emergency (ER) | payer MEDICARE, MEDICAID ==
[2018-03-16 06:31] LABS: #Basophils 0.1 thou/uL (0.0-0.2); #Eosinphils 0.2 thou/uL (0.0-0.7); #Lymphocytes 4.2 thou/uL (1.20-3.40); #Neutrophils 11.1 thou/uL (1.40-6.50); %Basophils 0.6 % (0.0-1.0); %Eosinophils 1.4 % (0.0-10.0); %Lymphocytes 25.5 % (21.0-51.0); %Monocytes 5.8 % (0.0-10.0); %Neutrophils 66.8 % (42.0-75.0); Hemoglobin 14.8 g/dL (12.0-16.0); Mean Corpuscular HGB CONC 32.5 g/dL (32.0-36.0); Mean Corpuscular Hemoglobin 30.5 pg (27.0-31.0); Mean Platelet Volume 8.1 fL (7.4-10.4); Platelet Count 221 thou/uL (130-400); Red Blood Cell (RBC) Count 4.85 mill/uL (4.20-5.40); White Blood Cell (WBC) Count 16.6 thou/uL (4.8-10.8)
[2018-03-16] MEDS ORDERED: Morphine 4 MG/ML VIAL ONE ×2 (06:33→06:34)
[2018-03-16 06:34] LABS: PTT 24.5 SEC (22.9-36.1); Prothrombin Time 13.1 SEC (12.0-14.7)
[2018-03-16 06:44] LABS: ALT (SGPT) 12 U/L (8-55); AST (SGOT) 14 U/L (5-34); Albumin 3.4 g/dL (3.4-4.8); Alkaline Phosphatase 56 U/L (40-150); BUN (Urea Nitrogen) 24 mg/dL (9.8-20.1); Bilirubin, Total 1.1 mg/dL (0.2-1.2); Calc. Creatinine Clearance 0 mL/min (70-130); Calcium 8.1 mg/dL (7.8-10.44); Estimated GFR-MDRD 55; Globulin 2.5 g/dL (2.4-3.5); Glucose 98 mg/dL (80-115); Lipase 25 U/L (8-78); Protein, Total 5.9 g/dL (6.0-8.3)
[2018-03-16 06:53] LABS: Anion Gap 18 mmol/L (10-20); Carbon Dioxide 32 mmol/L (23-31); Chloride 91 mmol/L (98-107); Potassium 3.8 mmol/L (3.5-5.1); Sodium 137 mmol/L (136-145)
[2018-03-16] MEDS ORDERED: Furosemide 40 MG/4 ML VIAL ONE (08:00)
[2018-03-16] MEDS ORDERED: ISOVUE-370 76%-LOCM 1 ML ONE (08:16)
--- NOTE | 2018-03-16 08:30 | CT ---
PRELIMINARY REPORT/[facility]/EMERGENCY AFTER HOURS PROCEDURE: Addendum created by Albert Tejeda MD on 03/16/2018 7:22 AM Central Time ([place]) per operations te am, Dr. Sutton is aware of report and has no questions at 03/16/2018 7:16 AM CDT. Initial Report created on 03/16/2018 7:00 AM Central Time ([place]) EXAM: CT Abdomen and Pelvis With Intravenous Contrast EXAM DATE/TIME: Exam ordered 03/16/2018 6:27 AM CLINICAL HISTORY: 62 years old, female; Signs and symptoms; Other: Bruising and pain to left side; Prior surgery; Surge ry date: 6+ months; Surgery type: Surgical history of cholecystectomy, surgical history of partial hysterectomy, bladder lift; Additional info: F62 reports to ed C/O left hip pain and bruising. Pt rep orts the bruising started after she was discharged from the hospital for pneumonia. Pt reports she mitchell s had excessive coughing over the last few weeks due to the pneumonia. Pt reports was feeling better over the last couple days after being discharged however this morning the pain increased to the point where she decided to come in. Pt denies taking asa daily. Pt denies fall. TECHNIQUE: Axial computed tomography images of the abdomen and pelvis with intravenous contrast. All CT scans at this facility use at least one of these dose optimization techniques: automated exposure control; mA and/or kV adjustment per patient size (includes targeted exams where dose is matched to clinical ind ication); or iterative reconstruction. Coronal reformatted images were created and reviewed. CONTRAST: 60 mL of isovue 370 administered intravenously. COMPARISON: No relevant prior studies available. FINDINGS: Lung bases: There is consolidation at the LEFT lung base with cavitation measuring 2.1 cm. Cavitary pneumonia or mass are possible. ABDOMEN: Liver: There are no focal liver lesions identified. Gallbladder and bile ducts: There has been a cholecystectomy. No ductal dilation. Pancreas: The pancreas appears normal. No ductal dilation. Spleen: The spleen is normal. Adrenals: The adrenal glands are normal. Kidneys and ureters: The kidneys appear normal. No hydronephrosis. Stomach and bowel: The stomach is normal. The duodenum is unremarkable. The colon is normal. No obstruction. No mucosal thickening. PELVIS: Appendix: No findings to suggest acute appendicitis. Bladder: The bladder is normal. Reproductive: Patient is post partial hysterectomy. ABDOMEN and PELVIS: Intraperitoneal space: Normal. No free air. No significant fluid collection. Bones/joints: No acute fracture. No dislocation. Soft tissues: There is nonspecific edema within the anterior pelvic soft tissues. Vasculature: The vasculature demonstrates diffuse moderate atherosclerotic calcification. No abdomina l aortic aneurysm. Lymph nodes: Normal. No enlarged lymph nodes. IMPRESSION: 1. No acute abdominal pelvic pathology. 2. There is consolidation at the LEFT lung base with cavitation measuring 2.1 cm. Cavitary pneumonia or mass are possible. Thank you for allowing us to participate in the care of your patient. Dictated and Authenticated by: Albert Tejeda MD 03/16/2018 7:00 AM Central Time ([place]) FINAL REPORT CT ABDOMEN AND PELVIS WITH CONTRAST: HISTORY: Pain, bruising. COMPARISON: None. FINDINGS: There is a cavitary mass in the left lung base with some peripheral pneumonitis. Mild atelectasis in the right lung base. Old posterior rib fractures. There is soft tissue skin thickening of the anterior abdominal wall. Likely reactive left external i liac lymph nodes and right external iliac lymph nodes and common iliac lymph nodes. There are also e nlarged retroperitoneal paracaval lymph nodes and periaortic lymph nodes. IMPRESSION: Findings and impression are concordant with the preliminary report. In addition, there is likely toñito e cellulitis of the anterior abdominal wall with likely reactive adenopathy. Followup recommended. Clinical correlation is advised. Followup CT of the chest is also recommended to evaluate the underl humberto cavitary lesion in the left lung base. POS: [facility]
== END 2018-03-16 08:28 | disposition home or self-care (01) ==
LOC: ERS 05:46
DX: S70.02XA Contusion of left hip, initial encounter (principal); S30.1XXA Contusion of abdominal wall, initial encounter; R60.0 Localized edema; E11.9 Type 2 diabetes mellitus without complications; I10 Essential (primary) hypertension; J44.9 Chronic obstructive pulmonary disease, unspecified; F17.210 Nicotine dependence, cigarettes, uncomplicated; X58.XXXA Exposure to other specified factors, initial encounter
CPT/HCPCS: 74177; 80053; 83690; 83880; 85025; 85610; 85730; 96374; 96375; J1940; J2270

== ENCOUNTER 2018-05-19 07:13 | Emergency (ER) | payer MEDICARE, MEDICAID ==
--- NOTE | 2018-05-19 08:49 | RAD ---
RADIOGRAPH CHEST 2 VIEWS: Date: 05/19/2018. Time: 8:06 a.m. HISTORY: A 62-year-old female with productive cough and hemoptysis. COMPARISON: One view study of 02/28/2018 and 2 view study of 08/22/2004. FINDINGS: There is no cardiomegaly or mediastinal widening. No consolidation, pleural effusion, or pneumothora x. There is dilation of bilateral central pulmonary blood vessels, unchanged since the 02/28/2018, bu t new since 2004. Again noted are the old healed displaced fracture deformities of right posterior u pper ribs. The area of increased density at the left medial base on the 02/28/2018 study is no longer visualized. IMPRESSION: 1. No evidence of pneumonia. 2. Dilated central blood vessels. This could represent dilated pulmonary artery branches, in which case the findings would be suspicious for pulmonary arterial hypertension. Alternatively, these are less likely to represent dilated pulmonary vein branches because there is no cardiomegaly. Recommend further evaluation with CT pulmonary angiogram with IV contrast (unless contraindicated). MONA [] POS: [facility]
[2018-05-19 09:08] LABS: #Eosinphils 0.8 thou/uL (0.0-0.7); #Lymphocytes 1.7 thou/uL (1.20-3.40); #Monocytes 0.5 thou/uL (0.11-0.59); #Neutrophils 6.8 thou/uL (1.40-6.50); %Basophils 0.4 % (0.0-1.0); %Eosinophils 8.3 % (0.0-10.0); %Lymphocytes 17.7 % (21.0-51.0); %Neutrophils 68.7 % (42.0-75.0); Hemoglobin 13.8 g/dL (12.0-16.0); Mean Corpuscular HGB CONC 30.9 g/dL (32.0-36.0); Mean Corpuscular Hemoglobin 30.1 pg (27.0-31.0); Mean Corpuscular Volume 97.2 fL (78.0-98.0); Mean Platelet Volume 7.7 fL (7.4-10.4); Platelet Count 215 thou/uL (130-400); RBC Distribution Width 13.9 % (11.5-14.5); Red Blood Cell (RBC) Count 4.59 mill/uL (4.20-5.40); White Blood Cell (WBC) Count 9.8 thou/uL (4.8-10.8)
[2018-05-19 09:34] LABS: ALT (SGPT) 9 U/L (8-55); AST (SGOT) 19 U/L (5-34); Albumin 3.7 g/dL (3.4-4.8); Alkaline Phosphatase 76 U/L (40-150); Anion Gap 10 mmol/L (10-20); BUN (Urea Nitrogen) 24 mg/dL (9.8-20.1); Bilirubin, Total 0.6 mg/dL (0.2-1.2); Calc. Creatinine Clearance 0 mL/min (70-130); Carbon Dioxide 35 mmol/L (23-31); Chloride 98 mmol/L (98-107); Estimated GFR-MDRD 47; Globulin 2.8 g/dL (2.4-3.5); Glucose 102 mg/dL (80-115); Potassium 4.3 mmol/L (3.5-5.1); Protein, Total 6.5 g/dL (6.0-8.3); Sodium 139 mmol/L (136-145)
--- NOTE | 2018-05-19 10:55 | CT ---
CT ANGIOGRAM OF CHEST WITH CONTRAST: HISTORY: Back pain. Chest pain. COMPARISON: Radiograph 05/19/2018. FINDINGS: CT angiogram chest is performed after the intravenous administration of contrast. Three-D rendering was provided. The thyroid is unremarkable. Pulmonary trunk is enlarged measuring 34 mm suggesting p ulmonary arterial hypertension. There is no proximal segmental pulmonary arterial filling defect. Within the left lower lobe, there is a mass with endobronchial component with peripheral spiculations . This measures 2.5 x 2 x 2.3 cm (transverse x AP x CC). Endobronchial extension extends into the m edial segment left lower lobe bronchus. No other suspicious pulmonary mass is appreciated. There is post obstructive pneumonitis in the post erior medial segments of the left lower lobe. No axillary adenopathy. No pericardial effusion. Mild reflux of contrast in the suprahepatic IVC an d hepatic vein. Limited evaluation of the upper abdomen is unremarkable. Multiple old right-sided rib fractures. There is a left posterior 9th and 10th rib fracture with sof t tissue mass along the left posterior 9th rib fractures which may represent a pathologic fracture. IMPRESSION: 1. Spiculated posterior and medial segment left lower lobe mass as described with endobronchial exte nsion and post obstructive pneumonitis concerning for malignancy. Pulmonary consultation and endobra hcheal biopsy is recommended. 2. Left posterior 8th, 9th and 10th rib fractures with soft tissue mass concerning for pathologic fr actures. CODE T POS: [facility]
[2018-05-19] MEDS ORDERED: ISOVUE-370 76%-LOCM 1 ML ONE (12:30)
== END 2018-05-19 11:20 | disposition home or self-care (01) ==
LOC: ERS 07:13
DX: M84.48XA Pathological fracture, other site, initial encounter for fracture (principal); R91.8 Other nonspecific abnormal finding of lung field; I27.21 Secondary pulmonary arterial hypertension; E11.9 Type 2 diabetes mellitus without complications; F17.210 Nicotine dependence, cigarettes, uncomplicated; Z79.4 Long term (current) use of insulin
CPT/HCPCS: 36415; 71046; 71275; 80053; 85025

== ENCOUNTER 2018-06-01 22:50 | Observation (INO) | payer MEDICARE, MEDICAID ==
[~2018-06-01 22:50] MED LIST: Iopamidol 370 76% 100 ML VIAL ONE
[2018-06-01 23:20] LABS: #Eosinphils 0.7 thou/uL (0.0-0.7); #Lymphocytes 1.9 thou/uL (1.20-3.40); #Monocytes 0.5 thou/uL (0.11-0.59); #Neutrophils 4.6 thou/uL (1.40-6.50); %Basophils 0.6 % (0.0-1.0); %Eosinophils 8.8 % (0.0-10.0); %Lymphocytes 24.6 % (21.0-51.0); %Monocytes 6.3 % (0.0-10.0); %Neutrophils 59.8 % (42.0-75.0); Hemoglobin 13.2 g/dL (12.0-16.0); Mean Corpuscular HGB CONC 32.8 g/dL (32.0-36.0); Mean Corpuscular Volume 97.5 fL (78.0-98.0); Mean Platelet Volume 7.7 fL (7.4-10.4); Platelet Count 234 thou/uL (130-400); RBC Distribution Width 13.7 % (11.5-14.5); Red Blood Cell (RBC) Count 4.13 mill/uL (4.20-5.40); White Blood Cell (WBC) Count 7.6 thou/uL (4.8-10.8)
[2018-06-01] MEDS ORDERED: methylPREDNISolone Sod Succ/PF 125 MG/2 ML VIAL ONE (23:23)
[2018-06-01] MEDS ORDERED: Water For Inject, Bacteriostat 30 ML ONE (23:24)
--- NOTE | 2018-06-01 23:33 | RAD ---
FRONTAL RADIOGRAPH CHEST PORTABLE UPRIGHT: 06/01/18 COMPARISON: 03/05/18 HISTORY: Left arm numbness. FINDINGS: Old right sided rib fractures. Heart and mediastinal contours are stable with no pneumothorax, pleura l fluid, focal consolidation or alveolar edema. Recent CT examination of the chest performed 05/19/18 demonstrates a spiculated mass in the left lower lobe suspicious for malignancy. This is vaguely vis ualized on this exam. IMPRESSION: No focal consolidation or alveolar edema. There is a spiculated mass in the left lung base seen on re cent CT examination, suspicious for bronchogenic carcinoma. POS: [facility]
[2018-06-01 23:41] LABS: ALT (SGPT) Less than 7 U/L (8-55); AST (SGOT) 14 U/L (5-34); Albumin 3.5 g/dL (3.4-4.8); Alkaline Phosphatase 84 U/L (40-150); Anion Gap 10 mmol/L (10-20); BUN (Urea Nitrogen) 18 mg/dL (9.8-20.1); Bilirubin, Total 0.5 mg/dL (0.2-1.2); CK (CPK) 90 U/L (29-168); Calc. Creatinine Clearance 0 mL/min (70-130); Calcium 8.5 mg/dL (7.8-10.44); Carbon Dioxide 32 mmol/L (23-31); Chloride 92 mmol/L (98-107); Estimated GFR-MDRD 54; Globulin 2.6 g/dL (2.4-3.5); Glucose 96 mg/dL (80-115); Lipase 16 U/L (8-78); Potassium 4.2 mmol/L (3.5-5.1); Protein, Total 6.1 g/dL (6.0-8.3); Sodium 130 mmol/L (136-145)
[2018-06-01 23:45] LABS: CKMB 2.8 ng/mL (0-6.6)
[2018-06-01 23:51] LABS: Troponin I Less than 0.010 ng/mL (< 0.028)
[2018-06-02] MEDS ORDERED: traMADol HCl 50 MG TAB ONE (00:27)
[2018-06-02] MEDS ORDERED: Methocarbamol 500 MG TAB PO SCH (00:45)
[2018-06-02] MEDS ORDERED: Nitroglycerin 0.4 MG TAB (25 Tab Bottle) ONE (00:51)
[2018-06-02] MEDS ORDERED: Aspirin 325 MG TAB ONE (00:51)
[2018-06-02] MEDS ORDERED: Ondansetron PF 4 MG/2 ML Vial IVP PRN (01:53)
[2018-06-02] MEDS ORDERED: Acetaminophen 325 MG TAB PO PRN (01:53)
[2018-06-02] MEDS ORDERED: Ondansetron ODT 4 MG TAB SL PRN (01:53)
[2018-06-02 02:03] VITALS: BMI 41.3
[2018-06-02 02:51] LABS: Troponin I Less than 0.010 ng/mL (< 0.028)
[2018-06-02 06:05] LABS: Troponin I 0.016 ng/mL (< 0.028)
--- NOTE | 2018-06-02 07:40 | CT ---
CT ANGIOGRAM OF THE CHEST: DATE: 06/01/2018. COMPARISON: 05/19/2018. HISTORY: Shortness of breath. TECHNIQUE: Serial axial CT imaging at 2.5 mm intervals from thoracic inlet through upper abdomen with IV contras t using a CT angiogram protocol. Coronal and sagittal 3D reformatted imaging obtained. As seen on t he prior examination performed 2 weeks prior, there is a spiculated mass in the left lower lobe measu ring 2.1 cm, concerning for bronchogenic carcinoma. Distal to this is patchy multifocal parenchymal opacity suggesting postobstructive pneumonitis within left lower lobe, unchanged as well. There is no lymphadenopathy in the axillary, mediastinal, or hilar regions. There is adequate opacification of the pulmonary arterial vasculature. No pulmonary arterial filling defect is seen to suggest the presence of acute pulmonary embolism. There is no pneumothorax seen on either side. There is a focal area of pulmonary parenchymal opacity within the left upper lobe medially on image 2 4, new, suggesting volume loss or infectious pneumonitis, measuring 7-8 mm in transverse dimension. The right upper lobe demonstrates no acute findings. There is volume loss and/or scar within the inf eromedial aspect of the right lower lobe and the medial aspect of the right middle lobe. There is incompletely assessed coronary arterial calcification. Limited assessment of the upper abdomen demonstrates no acute findings. Review of the osseous structures demonstrates multiple old posterior right-sided rib fractures. Ther e is a fracture of the left 11th rib with soft tissue density suggesting a pathologic fracture. Ther e is a pathologic fracture with an associated lytic lesion involving the left 10th rib and left 9th r ib as well. IMPRESSION: 1. No evidence for pulmonary embolism. 2. Spiculated lesion in left lower lobe concerning for bronchogenic carcinoma. Probable associated postobstructive pneumonitis noted, similar when compared to prior imaging. 3. Pathologic left-sided rib fractures on the basis of osseous metastatic disease. Whole body bone scan advised for full assessment. 4. Coronary arterial calcification. Results discussed with Dr. Kim at 12:05 a.m. 06/02/2018. CODE CR POS: [facility]
[2018-06-02] MEDS ORDERED: Regadenoson 0.4 MG/5 ML SYRINGE ONE (09:02)
[2018-06-02] MEDS ORDERED: PROVENTIL INHALER 6.7 G (200 INHALATIONS) INH PRN (09:07)
[2018-06-02] MEDS ORDERED: traMADol HCl 50 MG TAB PO PRN (09:10)
[2018-06-02] MEDS ORDERED: Nicotine 21 MG PATCH TD SCH ×2 (09:15→10:30)
[2018-06-02] MEDS ORDERED: Dextrose 5% in Water 1,000 ML IV PRN (12:46)
[2018-06-02] MEDS ORDERED: Dextrose 50% Abboject 50 ML SYRINGE SLOW IVP PRN (12:46)
[2018-06-02] MEDS ORDERED: HumaLOG 300 UNITS/3 ML VIAL SC PRN (12:46)
[2018-06-02] MEDS ORDERED: hydrALAZINE 20 MG/ML VIAL SLOW IVP PRN (12:48)
--- NOTE | 2018-06-02 14:25 | NM ---
STRESS ONLY MYOCARDIAL PERFUSION SCAN: DATE: 06/02/2018. HISTORY: Chest pain, COPD, hypertension, diabetes, and smoking. TECHNIQUE: SPECT imaging of the left ventricular myocardium is obtained during stress following the intravenous administration of 30.4 mCi Technetium 99m labeled sestamibi. FINDINGS: Wall motion appears normal. No focal perfusion defect seen. Ejection fraction is calculated at 70% with an EDV of 118 mL and an ESV of 35 mL. IMPRESSION: Unremarkable stress-only myocardial perfusion scan. POS: [facility]
[2018-06-02 16:09] VITALS: BP 157/70; TEMP 98.4
[2018-06-02] MEDS ORDERED: Mometasone/Formoterol 120 PUFF INHALER INH SCH (18:30)
[2018-06-02] MEDS ORDERED: Famotidine 20 MG TAB PO SCH (21:00)
[2018-06-02] MEDS ORDERED: Lisinopril/Hydrochlorothiazide 20 mg/12.5 mg Tablet PO SCH (21:00)
[2018-06-02] MEDS ORDERED: Insulin NPH/Reg Insulin Hm 300 UNITS/3 ML VIAL SC SCH (21:00)
[2018-06-02] MEDS ORDERED: Carvedilol 25 MG TAB PO SCH (21:00)
[2018-06-02] MEDS ORDERED: Atorvastatin Calcium 10 MG TAB PO SCH (21:00)
--- NOTE | 2018-06-03 05:40 | SS ---
DATE OF ADMISSION: 06/02/2018 DATE OF DISCHARGE: 06/02/2018 PRIMARY CARE PHYSICIAN: Dr. Yadira Barlow. PRIMARY JUVENILE CORRECTIONAL OFFICER: Regan Zamorano MD CHIEF COMPLAINT: Left-sided chest pain. HISTORY OF PRESENT ILLNESS: Ms. Mckenna is a pleasant 62-year-old female with a past medical history of lung mass, pathological rib fractures, COPD, hypertension, diabetes type 2, who had presented to [facility] with left-sided chest pain that had radiated to her back, she had reported that the pain was worse with movement along with pressing on her chest. She was recently diagnosed with a lung mass, and was following up with Dr. Zamorano for further evaluation, there was some discussion that she would undergo EBUS; however, the patient had declined, does say she would not like to be put under. There was further plan for a PET scan as an outpatient. The patient's initial workup in the ER included chest x-ray, which showed no focal consolidation or alveolar edema or whether there was a spiculated mass in the left lung base seen on recent CT exam, this was suspicious for bronchogenic carcinoma. Last CTA was performed and it showed no evidence of a pulmonary embolism; however, there was a spiculated lesion in the left lower lobe concerning for bronchogenic carcinoma along with pathogenic left-sided rib fractures, and it also displayed coronary artery calcification. She had denied any history of heart problems in the past; however, she states that she does have a history of COPD, where she was recently placed on home oxygen of 2L via nasal cannula. She states that her left-sided chest pain had been going on for the last several months, but has recently gotten worse over the last 1 to 2 weeks. She states that it is getting to the point to where it is causing some shortness of breath and when she takes a deep breath in, her pain worsens. She had described this pain as sharp, 10/10. She states she has been taking Tylenol and Aleve at home, however, no relief. She was given sublingual nitroglycerin in the emergency department including aspirin 325 mg, tramadol 50 mg, Solu-Medrol 125 mg, and DuoNeb treatment, and a dose of Robaxin 500 mg oral. Her symptoms slightly resolved; however, returned once she started moving her arm. There was further discussion with Dr. Zamorano on another possible workup of her chest pain, it was undetermined that Dr. Zamorano agreed with obtaining a stress test for further evaluation of chest pain, and for possible causes. Her cardiac biomarkers were found to be less than 0.010, negative x3. She was transferred up to the floor for a close observation. Her vital signs remained stable, blood pressure was slightly elevated in the morning; however, after her normal home medications for blood pressure, this seemed to improve to 157/70. Her chest pain improved with a dose of tramadol 50 mg. She had undergone stress test during the hospital course, which was found to be unremarkable. Stress-only myocardial perfusion scan with normal wall motion and no focal perfusion defect noted. Her ejection fraction was calculated at 70%. Her chest pain was also noted to be reproducible, therefore this was likely secondary to her lung mass and/or pathological rib fractures on the left side. With the continued tramadol, her pain was controlled. She had remained on her home dose of oxygen via nasal cannula and tolerated it well. She was seen and examined prior to discharge, she had no further complaints of chest pain at that time after a dose of tramadol. Her lung sounds were within normal limits, positive S1 and S2, no murmurs noted. She had clear lung sounds; however, with deep inspiration, her chest pain increased. She had tolerated a regular diet during hospital course without any complications. There was a followup with Dr. Zamorano made for 06/08/2018, where she will seek further evaluation with PET scan. She was provided a prescription with tramadol 50 mg p.r.n. pain and she was instructed to continue her other home medications. She also was instructed to follow up with her PCP, Dr. Barlow, in 1 to 2 weeks, she verbalized her understanding for this discharge plan and she was deemed medically stable for discharge home on 06/02/2018, and her chest pain was determined to be noncardiac at this time. DISCHARGE DIAGNOSES: 1. Lung mass, stable. 2. Pathological rib fractures of ribs 10 and 11, stable. 3. Chest pain, noncardiac likely secondary to lung mass and pathological rib fractures. 4. Hypertension, stable. 5. Diabetes mellitus type 2, stable. 6. Chronic obstructive pulmonary disease, stable. 7. Nicotine abuse, stable. CONSULTATIONS: None. PROCEDURES: None. PERTINENT LABORATORY AND DIAGNOSTIC IMAGING: WBC 7.6, RBC 4.13, hemoglobin 13.2, and platelets 234. Sodium 130, potassium 4.2. Anion gap 10. Creatinine 1.04. Estimated GFR 54. Alkaline phosphatase 84. Creatine kinase 90. CK-MB 2.8. Troponin less than 0.010 x2, 0.016. Lipase 16. Chest x-ray showed no focal consolidation or edema; however, did display a spiculated mass in the left lung base seen on recent CT examination. CTA of chest showed no evidence of PE; however, did display a spiculated lesion in left lower lobe concerning for bronchogenic carcinoma, pathogenic left-sided rib fractures on the basis of osseous metastatic disease. Nuclear Medicine, cardiac stress test was unremarkable and showed a normal myocardial perfusion scan with normal wall motion, no focal perfusion defects seen and an EF calculated at 70%. DISCHARGE MEDICATIONS: 1. Tramadol 50 mg oral every 4 hours as needed for pain. 2. Albuterol sulfate 2 puff inhalation every 6 hours as needed for shortness of breath/wheezing. 3. Atorvastatin 10 mg oral at bedtime. 4. Carvedilol 25 mg oral twice daily. 5. Metformin 500 mg oral twice daily with meals. 6. Lisinopril/hydrochlorothiazide 20/12.5 mg oral twice daily. 7. Insulin NPH 70/30 of 25 units subcutaneous twice daily. 8. Ipratropium/albuterol sulfate 3 mL nebulizer 4 times daily as needed for shortness of breath or wheezing. 9. Dulera 200 mcg/5 mcg inhaler 2 puff inhalation twice daily. 10. Furosemide 40 mg oral daily. DISCHARGE CONDITION: Stable. DISCHARGE ACTIVITY: As tolerated. DISCHARGE DIET: Heart healthy. FOLLOWUP: The patient is to follow up with her PCP, Dr. Barlow, in 1 to 2 weeks, she has a followup with Dr. Zamorano, Evaluation Assistant, next on 06/08/2018. DISPOSITION: Home on 06/02/2018. Job ID: [id number]
[2018-06-03] MEDS ORDERED: Furosemide 40 MG TAB PO SCH (09:00)
[2018-06-03] MEDS ORDERED: Enoxaparin Sodium 40 MG/0.4 ML SYRINGE SC SCH (09:00)
[2018-06-03] MEDS ORDERED: Nicotine 21 MG PATCH TD SCH (09:00)
== END 2018-06-02 17:01 | disposition home or self-care (01) ==
LOC: ERS 22:50 → 2SW 06-02 01:31
PROVIDERS: ADMIT Internal Medicine; ATTEND Internal Medicine
DX: R07.89 Other chest pain (principal); J44.9 Chronic obstructive pulmonary disease, unspecified; I10 Essential (primary) hypertension; E11.9 Type 2 diabetes mellitus without complications; F17.210 Nicotine dependence, cigarettes, uncomplicated; Z79.4 Long term (current) use of insulin; Z79.899 Other long term (current) drug therapy; Z88.0 Allergy status to penicillin; Z88.2 Allergy status to sulfonamides; Z88.6 Allergy status to analgesic agent; Z88.8 Allergy status to other drugs, medicaments and biological substances
CPT/HCPCS: 71045; 71275; 78452; 80053; 82550; 82553; 82962; 83690; 84484 ×3; 85025; 93005; 93017; 94640; 96374; 99285; A9500; G0378; 36415; 36416; J2785; J2930; J7620; Q0162

== ENCOUNTER 2018-06-08 11:30 | Outpatient (CLI) | payer MEDICARE, MEDICAID ==
--- NOTE | 2018-06-08 14:46 | PET ---
NUCLEAR MEDICINE FDG PET CT: (Positron Emission Tomography) DATE: 06/08/18 HISTORY: 62-year-old female with left lower lobe lung cancer, initial staging. COMPARISON: None. TECHNIQUE: IV injection F-18 Fluorodeoxyglucose (FDG) dose: 10.2 mCi PET and attenuation-correction CT performed from skull base to proximal thighs. FINDINGS: SUV (standard uptake value) numbers given are QCLR maximum SUV's: The left lower lobe pulmonary mass is very FDG-avid, with SUV of 19.7. No evidence of mediastinal or hilar malignant lymphadenopathy. At the left posterior costophrenic angle, there is a focus of apparent FDG-avidity with SUV of 6.9. O n the attenuation corrected CT images, there is only a faint 2 cm area of slightly increased attenuat ion that does not have the appearance of a discrete mass. This may represent a focus of misregistrati on artifact. Based on the appearance on the attenuation correction CT, this is unlikely to represent a malignant lesion at the left posterior costophrenic angle. There are displaced fractures with soft tissue density components involving the posterolateral aspect s of the left 8th rib and 9th rib, both with SUVs of 3.3. There is a compression fracture of the T4 vertebral body with SUV of 4.5. There are multiple old, displaced, healed right posterior rib fractures that are not FDG-avid. No pat hologically FDG-avid lesions are identified in the pelvis or abdomen, or in the neck. IMPRESSION: 1. Hypermetabolic left lower lobe pulmonary mass is evidence for primary lung cancer. 2. FDG-avid soft tissue components of fractures involving the posterolateral aspects of left 8th and 9th ribs. This is nonspecific. These could represent pathologic fractures with soft tissue component s of metastatic tumor, or could represent callus around benign traumatic fractures. 3. FDG-avid compression fracture of T4 vertebral body. The FDG avidity could be due to recent nature of the fracture if it is an acute or subacute fracture. There is a possibility that this could repre sent a pathologic fracture jacques to metastatic involvement, but that is slightly less likely. 4. Multiple old contralateral right traumatic rib fractures, nonpathological. 5. No evidence of distant metastatic disease within the contents of the abdominal cavity and pelvic cavity or neck. [facility] POS: [facility]
== END 2018-06-08 11:31 | disposition home or self-care (01) ==
LOC: PET 11:30
PROVIDERS: ATTEND Internal Medicine Critical Care Medicine
DX: R91.8 Other nonspecific abnormal finding of lung field (principal); C34.32 Malignant neoplasm of lower lobe, left bronchus or lung; S22.42XA Multiple fractures of ribs, left side, initial encounter for closed fracture; S22.049A Unspecified fracture of fourth thoracic vertebra, initial encounter for closed fracture; Z87.81 Personal history of (healed) traumatic fracture
CPT/HCPCS: 78815; A9552

== ENCOUNTER 2018-06-17 23:11 | Emergency (ER) | payer MEDICARE, MEDICAID ==
[2018-06-17] MEDS ORDERED: Magnesium 2 GM/50 ML BAG (IN WATER) ONE (23:43)
--- NOTE | 2018-06-17 23:54 | RAD ---
PORTABLE CHEST: 06/17/18 HISTORY: Dyspnea. COMPARISON: 06/01/18 Heart size is upper normal and stable. Mild vascular engorgement appears unchanged. No focal infilt rate. Old right rib fractures again noted. IMPRESSION: No interval change from 06/01/18. POS: [facility]
[2018-06-17 23:56] LABS: #Eosinphils 0.6 thou/uL (0.0-0.7); #Lymphocytes 1.3 thou/uL (1.20-3.40); #Monocytes 0.6 thou/uL (0.11-0.59); #Neutrophils 5.9 thou/uL (1.40-6.50); %Basophils 0.1 % (0.0-1.0); %Eosinophils 6.9 % (0.0-10.0); %Lymphocytes 15.5 % (21.0-51.0); %Monocytes 6.7 % (0.0-10.0); %Neutrophils 70.9 % (42.0-75.0); Mean Corpuscular HGB CONC 32.3 g/dL (32.0-36.0); Mean Corpuscular Hemoglobin 31.2 pg (27.0-31.0); Mean Corpuscular Volume 96.8 fL (78.0-98.0); Mean Platelet Volume 7.5 fL (7.4-10.4); Platelet Count 188 thou/uL (130-400); RBC Distribution Width 12.7 % (11.5-14.5); Red Blood Cell (RBC) Count 4.49 mill/uL (4.20-5.40); White Blood Cell (WBC) Count 8.3 thou/uL (4.8-10.8)
[2018-06-18 00:12] LABS: ALT (SGPT) 8 U/L (8-55); AST (SGOT) 20 U/L (5-34); Albumin 3.4 g/dL (3.4-4.8); Alkaline Phosphatase 96 U/L (40-150); Anion Gap 14 mmol/L (10-20); BUN (Urea Nitrogen) 17 mg/dL (9.8-20.1); Bilirubin, Total 0.5 mg/dL (0.2-1.2); Calc. Creatinine Clearance 0 mL/min (70-130); Calcium 9.1 mg/dL (7.8-10.44); Carbon Dioxide 33 mmol/L (23-31); Chloride 92 mmol/L (98-107); Estimated GFR-MDRD 61; Globulin 2.4 g/dL (2.4-3.5); Glucose 144 mg/dL (80-115); Potassium 4.6 mmol/L (3.5-5.1); Protein, Total 5.8 g/dL (6.0-8.3); Sodium 134 mmol/L (136-145)
[2018-06-18] MEDS ORDERED: traMADol HCl 50 MG TAB ONE (00:30)
[2018-06-18 01:27] LABS: Bilirubin Negative (Negative); Blood, Urine Negative (Negative); Clarity CLEAR (Clear); Glucose, Urine (Dipstick) Negative (Negative); Leukocyte Negative (Negative); Nitrite Negative (Negative); Protein, Urine (Dipstick) 300 mg/dL (Neg-Trace); Specific Gravity, Urine 1.009 (1.002-1.036)
[2018-06-18 01:29] LABS: Bacteria/HPF None Seen HPF (None Seen); Hyaline Casts/LPF 0-3 HYALINE CAST LPF (0-3 Hyaline); Pathc Cast-AUWi Flag 0.29 (0-2.49); RBC/HPF 0-3 HPF (0-3); Squamous Epithelial 0-3 HPF (0-3); WBC/HPF 0-3 HPF (0-3)
--- NOTE | 2018-06-18 08:18 | ULT ---
PRELIMINARY REPORT/[facility]/EMERGENCY AFTER HOURS PROCEDURE: EXAM: US Bilateral Duplex Lower Extremity Veins EXAM DATE/TIME: 06/18/2018 1:40 AM CLINICAL HISTORY: 62 years old, female; Signs and symptoms; Lymphedema; Lower extremity, bilateral TECHNIQUE: Real-time duplex ultrasound of the Bilateral Lower Extremities with 2-D cope scale, color Doppler amando w and spectral waveform analysis. Complete exam focused on the bilateral lower extremity veins. COMPARISON: No relevant prior studies available. FINDINGS: Right deep veins: Unremarkable. The common femoral, femoral and popliteal veins are patent without th rombus. Normal compressibility, augmentation response and Doppler waveforms. Right superficial veins: Saphenofemoral junction is patent without thrombus. Left deep veins: Unremarkable. The common femoral, femoral and popliteal veins are patent without thr ombus. Normal compressibility, augmentation response and Doppler waveforms. Left superficial veins: Saphenofemoral junction is patent without thrombus. Soft tissues: Superficial edema. IMPRESSION: 1. Superficial edema. 2. No DVT. Thank you for allowing us to participate in the care of your patient. Dictated and Authenticated by: Eren Dowling MD 06/18/2018 2:30 AM Central Time ([place] & [place]) FINAL REPORT BY DR. CLOVIS MENDEZ AFTER HOURS STUDY ULTRASOUND WITH DOPPLER DUPLEX VENOUS LOWER EXTREMITIES BILATERAL: HISTORY: 62-year-old female with bilateral lower extremity edema. TECHNIQUE: Color flow Doppler, spectral waveform analysis of pulsed Doppler, and cope-scale imaging with solitario ced and augmentation, were used to evaluate the bilateral common femoral, femoral, popliteal, retail banking manager ior tibial, and superficial femoral, veins; and the proximal portions of the profunda femoral and gre ater saphenous, veins. FINDINGS: There is normal compressibility, demonstration of blood flow by color Doppler and pulsed Doppler, and response to augmentation, in all interrogated veins. This report agrees with the preliminary report by Cindy. IMPRESSION: Negative. No deep vein thrombosis in the bilateral lower extremities. [email or web address][] POS: [facility]
== END 2018-06-18 02:55 | disposition home or self-care (01) ==
LOC: ERS 23:11
DX: J44.1 Chronic obstructive pulmonary disease with (acute) exacerbation (principal); R06.02 Shortness of breath; J44.9 Chronic obstructive pulmonary disease, unspecified; E11.9 Type 2 diabetes mellitus without complications; F32.9 Major depressive disorder, single episode, unspecified; F17.210 Nicotine dependence, cigarettes, uncomplicated; Z79.4 Long term (current) use of insulin; Z79.899 Other long term (current) drug therapy
CPT/HCPCS: 36415; 71045; 80053; 81003; 81015; 83880; 84484; 85025; 93005; 93970; 94760; 96374

== ENCOUNTER 2018-08-10 11:08 | Inpatient (IN) | payer MEDICARE, MEDICAID ==
[~2018-08-10 11:08] MED LIST changes: +ISOVUE-370 76%-LOCM 1 ML ONE; -Iopamidol 370 76% 100 ML VIAL ONE
[2018-08-10 11:47] LABS: #Basophils 0.1 thou/uL (0.0-0.2); #Eosinphils 0.1 thou/uL (0.0-0.7); #Lymphocytes 2.2 thou/uL (1.20-3.40); #Monocytes 0.5 thou/uL (0.11-0.59); #Neutrophils 7.2 thou/uL (1.40-6.50); %Basophils 0.6 % (0.0-1.0); %Eosinophils 0.9 % (0.0-10.0); %Lymphocytes 21.6 % (21.0-51.0); %Monocytes 4.9 % (0.0-10.0); Hemoglobin 15.3 g/dL (12.0-16.0); Mean Corpuscular HGB CONC 30.9 g/dL (32.0-36.0); Mean Corpuscular Hemoglobin 30.7 pg (27.0-31.0); Mean Corpuscular Volume 99.4 fL (78.0-98.0); Platelet Count 227 thou/uL (130-400); RBC Distribution Width 12.3 % (11.5-14.5); Red Blood Cell (RBC) Count 4.99 mill/uL (4.20-5.40)
--- NOTE | 2018-08-10 12:13 | RAD ---
CHEST 1 VIEW: Date: 08/10/18 HISTORY: Dyspnea. Unproductive cough. Lower extremity swelling. COMPARISON: 06/17/18. FINDINGS: Healed right rib fractures. Minimal increased markings in the bases bilaterally with somewhat less th an optimal inspiration, stable. Borderline heart size. No new confluent pneumonia or overt edema. IMPRESSION: Stable bilateral chronic changes and stable right healed rib fractures with borderline cardiomegaly w ithout significant acute process. POS: [facility]
[2018-08-10 12:14] LABS: ALT (SGPT) 14 U/L (8-55); AST (SGOT) 18 U/L (5-34); Albumin 3.5 g/dL (3.4-4.8); Alkaline Phosphatase 80 U/L (40-150); Anion Gap 14 mmol/L (10-20); BUN (Urea Nitrogen) 40 mg/dL (9.8-20.1); Bilirubin, Total 0.5 mg/dL (0.2-1.2); CK (CPK) 42 U/L (29-168); Calc. Creatinine Clearance 0 mL/min (70-130); Carbon Dioxide 34 mmol/L (23-31); Chloride 90 mmol/L (98-107); Estimated GFR-MDRD 43; Globulin 2.8 g/dL (2.4-3.5); Glucose 173 mg/dL (80-115); Potassium 4.1 mmol/L (3.5-5.1); Protein, Total 6.3 g/dL (6.0-8.3); Sodium 134 mmol/L (136-145)
--- NOTE | 2018-08-10 13:53 | CT ---
CT ANGIO OF CHEST PERFORMED WITH INTRAVENOUS CONTRAST ENHANCEMENT WITH 3D RECONSTRUCTIONS: History: Cough, shortness of breath. Currently taking antibiotics for an upper respiratory infection. Left low er extremity swelling and history of COPD. Comparison: 06-01-18 FINDINGS: A left lower lobe lung mass is again identified measuring approximately 2.6 cm in size. There are toñito e post obstructive changes seen. There is also parenchymal change in the right lower lobe which also appears fairly similar to the previous exam. No significant mediastinal or hilar adenopathy is noted. The thoracic aorta is normal in caliber. There is good pulmonary artery opacification obtained, there is no CT evidence for pulmonary embolus. There are some old healed right sided rib fractures present, also more subacute left sided rib fractu res. I cannot exclude these as being pathologic rib fractures. IMPRESSION: 1. No CT evidence for pulmonary embolis. 2. Other changes appear stable as compared to 06-01-18 study. There is bibasilar parenchymal lung demarcus nges and a left lower lobe lung mass again identified and fractures which could be pathologic fractur es of some of the left sided ribs. POS: [facility]
[2018-08-10 13:59] LABS: Actual Bicarbonate (HCO3a) 40.1 mEq/L (22-28); Analyzer IN Cardio ER; Base Excess (BEa) 10.2 mEq/L (-2.0 to +3.0); Calcium, Ionized 1.11 mmol/L (1.12-1.30); Carboxyhemoglobin (COHb) 3.8 gm% (0.0-3.0); Hemoglobin (Hb) 14.9 g/dL (12.0-16.0); O2 Tension (PaO2) 72.5 mmHg (> 80.0); Potassium - ABG Lab 3.97 mmol/L (3.70-5.30); pH, Arterial 7.32 (7.35-7.45)
[2018-08-10 14:03] LABS: CO2 Tension 80.4 mmHg (35.0-45.0); Puncture Site RRA
--- NOTE | 2018-08-10 15:22 | HP ---
PRIMARY CARE PHYSICIAN: Dr. Yadira Barlow. REASON FOR ADMISSION: Acute metabolic encephalopathy, acute respiratory failure with hypoxia, and hypercapnia. HISTORY OF PRESENT ILLNESS: A 62-year-old female who has underlying history of COPD, ongoing tobacco abuse disorder, and morbid obesity, who was brought to emergency room by paramedics for altered mental status. When paramedics reached her place, she was having cough. She was saturating 88%. She was appearing more lethargic and drowsy. The patient was also having upper respiratory infection for last couple of days. The patient was trying her nebulizer machine and rescue inhaler without any significant improvement. She was also having increasing lower extremity edema. In the emergency room, the patient was very lethargic. She was requiring oxygen to maintain saturation. ABG showed CO2 80.4. This patient has history of chronic respiratory acidosis with metabolic compensation. There is no history of any sedatives. The patient was having increasing shortness of breath for last few days. REVIEW OF SYSTEMS: All review of system tried to review with the patient, but unable to review because of the patient's altered mental status secondary to high CO2. ALLERGIES: BACTRIM DS, PENICILLIN, AND TORADOL. CURRENT HOME MEDICATIONS: 1. Prinzide 20/12.5 one tablet twice daily. 2. Novolin 70/30 25 units subcu b.i.d. 3. Metformin 500 mg twice daily. 4. Coreg 25 mg twice daily. 5. Lasix 40 mg twice daily. 6. Celexa 40 mg daily. 7. Lipitor 20 mg p.o. daily. 8. Haldol as needed. 9. Senna as needed. 10. Tramadol as needed. PAST MEDICAL HISTORY: Severe COPD, chronic respiratory acidosis with metabolic compensation, ongoing tobacco abuse disorder, medical noncompliance, hypertension, diabetes type 2, gastroesophageal reflux disease, morbid obesity, varicose vein, and chronic diastolic heart failure. PAST SURGICAL HISTORY: Cholecystectomy, bladder suspension, and partial hysterectomy. PAST PSYCHIATRIC HISTORY: Anxiety and depression. FAMILY HISTORY: Father was diagnosed with cancer of unknown type. Mother has history of diabetes and stroke. SOCIAL HISTORY: The patient is smoking about 1 pack per day. She works to [employer]. No history of alcohol or other illicit drug abuse. EMERGENCY ROOM COURSE: The patient was given BiPAP, DuoNeb therapy. PHYSICAL EXAMINATION: VITAL SIGNS: Blood pressure 115/55, pulse 73, respiratory rate 22, temperature 98.4, and saturation 99% with BiPAP. GENERAL: The patient is lethargic and drowsy, but arousable, hypoxic. HEENT: Head; normocephalic and atraumatic. Eyes; pupils are round, reactive to light. Extraocular muscle intact. ENT; oropharynx within normal limits. Dry appearing mucous membranes. No oral lesion. No pharyngeal erythema. No exudate. NECK: Supple. Difficult to assess JVD. No meningeal signs of irritation. LUNGS: Bilateral end-expiratory wheezing. Air entry reduced at base. No accessory muscles of respiration in use. CARDIAC: S1, S2 appears regular without any significant murmur, though, morbid obesity limiting examination. ABDOMEN: Obesity present. Bowel sounds present. Unable to elicit organomegaly. No suprapubic tenderness. BACK: Unremarkable. No CVA tenderness. EXTREMITIES: Upper extremities; passive movement of all joints are normal. Lower extremity; bilateral lower extremity pitting edema noted. No calf tenderness. Good distal pulsation. SKIN: No skin rash. HEMATOLOGIC: No lymphadenopathy. PSYCHIATRIC: Flat affect. NEUROLOGIC: Nonfocal examination, but detailed neurological examination not possible at this point because of the patient's lethargic status. SIGNIFICANT LABORATORY DATA: EKG showing normal sinus rhythm without any acute ischemic changes. Chest x-ray showing cardiomegaly with pulmonary vascular congestion. CT angiography showing no evidence of pulmonary embolism. Old record with echocardiography showed EF 60% to 65% and diastolic dysfunction. Pulmonary function test showed obstructive lung disease with decreased diffusion capacity. The patient has chronic left lower lobe lung mass and bibasilar parenchymal lung changes on CT scan, which has unchanged from previous. She had a stress test which is negative and she also had a PET scan in June, which showed hypermetabolic left lower lobe pulmonary mass consistent with lung cancer. CBC; WBC 10.0, hemoglobin 15.3, and platelet 227. ABG; pH 7.32, bicarb 40.1, CO2 80.4, saturation 92.9. BMP; sodium 134, potassium 4.1, chloride 90, carbon dioxide 34, BUN 40, creatinine 1.26, glucose 173, calcium 9.0. LFT; AST 18, ALT 14, alkaline phosphatase 80, albumin 3.5, troponin 0.027. BNP 252.7. Lactic acid 1.1. ASSESSMENT AND PLAN: 1. Acute on chronic respiratory failure with hypoxia and hypercapnia, likely precipitated by underlying chronic obstructive pulmonary disease flare-up. 2. Acute metabolic encephalopathy due to CO2 narcosis. 3. Chronic obstructive pulmonary disease exacerbation. 4. Bronchogenic carcinoma, left lower lobe. 5. Ongoing tobacco abuse disorder. 6. Acute on chronic diastolic congestive heart failure with elevated BNP. 7. Chronic kidney disease, stage 3. 8. Diabetes, type 2. 9. Hypertension. 10. Morbid obesity. 11. Dyslipidemia. 12. Anxiety and depression. PLAN: 1. Full admission to [facility]. The patient will need BiPAP. We will monitor her respiratory status. Pulmonary group will be consulted. We will repeat ABG later on today. BiPAP will be continued along with DuoNeb therapy every 4 hourly, Pulmicort nebulization twice daily, empiric antibiotic therapy with levofloxacin, Mucinex 600 mg twice daily. Hyperglycemia protocol orders will be initiated. Lasix will be given IV. Once we verify the patient's home medication, then will continue selected home medication while in hospital. DVT prophylaxis will be given with Lovenox 40 mg subcu daily. GI Prophylaxis with Protonix 40 mg p.o. daily. We will defer lung mass evaluation to Pulmonary group. The patient's long-term prognosis is poor. 2. DVT prophylaxis. Lovenox 40 mg subcu daily. 3. Gastrointestinal prophylaxis. Protonix 40 mg p.o. daily. CODE STATUS: The patient is full code. The patient does not have surrogate decision maker. DISPOSITION PLAN: Based on clinical course, we are expecting the patient's stay in hospital more than 2 midnights. Plan of care discussed with the patient. Job ID: [id number]
[2018-08-10 16:59] VITALS: BMI 36.1
[2018-08-10] MEDS ORDERED: Dextrose 5% in Water 1,000 ML IV PRN (17:09)
[2018-08-10] MEDS ORDERED: Metoclopramide HCl 10 MG/2 ML VIAL IVP PRN (17:09)
[2018-08-10] MEDS ORDERED: Loperamide HCl 2 MG CAP PO PRN (17:09)
[2018-08-10] MEDS ORDERED: Diabetic Tussin 200 MG/10 ML UDCUP PO PRN (17:09)
[2018-08-10] MEDS ORDERED: Dextrose 50% Abboject 50 ML SYRINGE SLOW IVP PRN (17:09)
[2018-08-10] MEDS ORDERED: hydrALAZINE 20 MG/ML VIAL SLOW IVP PRN (17:09)
[2018-08-10] MEDS ORDERED: Senokot S 8.6-50 MG TAB PO PRN (17:09)
[2018-08-10] MEDS ORDERED: Calcium Carbonate 500 MG ChewTAB PO PRN (17:09)
[2018-08-10] MEDS ORDERED: Artificial Tears 18 DROP/0.9 ML EA EYE PRN (17:09)
[2018-08-10] MEDS ORDERED: Acetaminophen 325 MG TAB PO PRN (17:09)
[2018-08-10] MEDS ORDERED: Loratadine 10 MG TAB PO PRN (17:09)
[2018-08-10] MEDS ORDERED: Cepastat Lozenges 1 LOZ PO PRN (17:09)
[2018-08-10] MEDS ORDERED: Bisacodyl 10 MG SUPP PR PRN (17:09)
[2018-08-10] MEDS ORDERED: Eucerin (Mineral Oil/Petrolatum,White) 30 gm Jar TOP PRN (17:09)
[2018-08-10] MEDS ORDERED: Sodium Chloride 0.65% Nasal 44 ML BOT EA NARE PRN (17:09)
[2018-08-10] MEDS ORDERED: Budesonide 0.5 MG/2 ML NEB INH SCH (18:30)
[2018-08-10] MEDS ORDERED: methylPREDNISolone Sod Succ 40 MG VIAL IVP SCH (18:45)
[2018-08-10] MEDS: guaiFENesin ER 600 MG TAB PO SCH (20:39)
[2018-08-10] MEDS: HumaLOG 300 UNITS/3 ML VIAL SC PRN (20:43)
[2018-08-10] MEDS ORDERED: Atorvastatin Calcium 20 MG TAB PO SCH (21:00)
[2018-08-10 21:01] LABS: Bilirubin Negative (Negative); Blood, Urine Negative (Negative); Clarity CLEAR (Clear); Glucose, Urine (Dipstick) Negative (Negative); Leukocyte Negative (Negative); Nitrite Negative (Negative); Protein, Urine (Dipstick) 100 mg/dL (Neg-Trace); Specific Gravity, Urine 1.024 (1.002-1.036); Urobilinogen 0.2 mg/dL (0.2-1.0); pH, Urine 6.5 (5.0-9.0)
[2018-08-10 21:03] LABS: Bacteria/HPF None Seen HPF (None Seen); Hyaline Casts/LPF 0-3 HYALINE CAST LPF (0-3 Hyaline); Pathc Cast-AUWi Flag 0.14 (0-2.49); Squamous Epithelial 0-3 HPF (0-3); WBC/HPF 0-3 HPF (0-3)
[2018-08-10 21:23] LABS: RBC/HPF 0-3 HPF (0-3)
--- NOTE | 2018-08-11 04:39 | CON ---
DATE OF CONSULTATION: 08/10/2018 SERVICE: Pulmonary Medicine. INTERVAL HISTORY: The patient is a 62-year-old white female with past medical history significant for very severe COPD. She also has a right lower lobe endobronchial mass. She follows with Dr. Zamorano in the outpatient setting. She ended up having a PET scan recently, the mass was FDG avid. He had a very long discussion with her regarding whether or not she wants to pursue biopsy of this thing. I actually repeated this conversation today. At this point, she wants nothing to do with a possible biopsy. She understands that there are multiple treatment modalities that could be available for an isolated cancer process. There is conventional chemotherapy, which she would not want. She also would not want radiation therapy, and when I talked about immune therapy with her, it peaked her interest only momentarily before she decided she would want that kind of thing either. As such, I do agree there would be no reason to pursue a biopsy. She came into the hospital, because she had a sick contact in her daughter. Her daughter had an upper respiratory tract infection/bronchitis last week. She is around her, and was exposed to that virus. Roughly 3 days ago, she started having cough, increasing sputum production, change in sputum character, and increasing shortness of breath. She was having some low-grade temperatures and felt hot. She came to the emergency department, because of increasing shortness of breath and a feeling like she could not get by at home any longer. She denies any current nausea, vomiting, diarrhea, chest discomfort, palpitations, dysuria, vaginal discharge. She has not had any change to her bowel movements. She does not note any abdominal discomfort. PAST MEDICAL HISTORY: 1. Chronic obstructive pulmonary disease, severe. 2. A PET positive mass in the right lower lobe, suspect cancer. 3. Chronic hypoxic and hypercapnic respiratory failure. 4. Tobacco abuse. 5. Hypertension. 6. Dyslipidemia. 7. Type 2 diabetes mellitus. 8. Gastroesophageal reflux disease. 9. Chronic diastolic heart failure. PAST SURGICAL HISTORY: 1. Cholecystectomy. 2. Bladder suspension. 3. Hysterectomy, partial. SOCIAL HISTORY: The patient continues to smoke a pack on a daily basis. She has a greater than 40 pack-year history of smoking. She delivers newspaper. She denies any alcohol or illicit drugs. She has no exposure to chemicals, dust, asbestos , or tuberculosis. FAMILY HISTORY: Noncontributory. ALLERGIES: 1. KETORALAC. 2. PENICILLIN. 3. SULFA. 4. TRIMETHOPRIM. MEDICATIONS: List of the patient's inpatient medications were reviewed. Multiple small updates were made. REVIEW OF SYSTEMS: General, head ears, eyes, nose, throat, cardiovascular, respiratory, GI, , musculoskeletal, neurologic, and skin is negative except as mentioned in the HPI. PHYSICAL EXAMINATION: VITAL SIGNS: Afebrile currently. Pulse 75, blood pressure 140/78, respirations 20, saturation 92% on room air. GENERAL: The patient is awake and alert, in no apparent distress. LUNGS: Very reduced air entry. Dependent crackles and extensively polyphonic wheezing are present. Rhonchi are present. They do not clear with cough. HEART: Normal rate. Regular. ABDOMEN: Soft, nontender, and nondistended. Bowel sounds are positive. MUSCULOSKELETAL: No cyanosis or clubbing. There is 1+ pitting in the bilateral lower extremities. NEUROLOGIC: Grossly nonfocal. LABORATORY DATA: WBC 10.0, hemoglobin 15.3, platelets 227,000. INR 1.1. pH 7.32, pCO2 80, PO2 72. She is on 2 L nasal cannula at this time. Creatinine 1.26 and gently uptrending, BUN 40, bicarb 34, chloride 90. Sodium 134. Basic metabolic profile and liver function studies are otherwise unremarkable. BNP 252, which is an all time low, lactate is unremarkable. IMAGING: CTA of the chest does not demonstrate any evidence of a pulmonary embolism. There is a right lower lobe pulmonary mass. Previous PET scan demonstrated this was in fact, FDG avid. Multiple fractures could be pathologic. ASSESSMENT: 1. [id number] hypoxic and hypercapnic respiratory failure, resolved to baseline. 2. Chronic obstructive pulmonary disease with acute exacerbation, likely secondary to viral illness. 3. Obstructive sleep apnea, possible. 4. Pulmonary mass, previously well discussed with both myself and Dr. Zamorano. The patient is electing not to pursue biopsy, because she would want any possible therapy options moving forward. As such, she understands this could result in not diagnosing cancer that could be potentially treatable. DISCUSSION AND PLAN: At this point, we will continue antibiotics, nebulized medications, and steroids. We will use the BiPAP on a p.r.n. basis. She would be a candidate for noninvasive ventilator in the outpatient setting. I talked to her about this today and she is going to continue this discussion with Dr. Zamorano. Pulmonary Critical Care will continue to follow along during this hospital stay. Dr. Zamorano will assume care in the morning. 70 minutes have been devoted to this patient in various activities. I personally reviewed all imaging studies and laboratory data noted within this document. For fifty percent of this time, I was interacting with the patient at the bedside or coordinating care with the care team. For the remainder of the time I was immediately available to the patient in the hospital unit. Job ID: [id number] MTDD
[2018-08-11 05:17] LABS: #Lymphocytes 0.6 thou/uL (1.20-3.40); #Monocytes 0.1 thou/uL (0.11-0.59); #Neutrophils 6.9 thou/uL (1.40-6.50); %Basophils 0.2 % (0.0-1.0); %Eosinophils 0.4 % (0.0-10.0); %Lymphocytes 7.8 % (21.0-51.0); %Monocytes 0.8 % (0.0-10.0); %Neutrophils 90.9 % (42.0-75.0); Mean Corpuscular HGB CONC 32.5 g/dL (32.0-36.0); Mean Corpuscular Hemoglobin 32.3 pg (27.0-31.0); Mean Corpuscular Volume 99.7 fL (78.0-98.0); Mean Platelet Volume 8.2 fL (7.4-10.4); Platelet Count 201 thou/uL (130-400); RBC Distribution Width 12.1 % (11.5-14.5); Red Blood Cell (RBC) Count 4.63 mill/uL (4.20-5.40); White Blood Cell (WBC) Count 7.6 thou/uL (4.8-10.8)
[2018-08-11 05:24] LABS: ALT (SGPT) 13 U/L (8-55); AST (SGOT) 15 U/L (5-34); Albumin 3.4 g/dL (3.4-4.8); Alkaline Phosphatase 76 U/L (40-150); Anion Gap 14 mmol/L (10-20); BUN (Urea Nitrogen) 34 mg/dL (9.8-20.1); Bilirubin, Total 0.5 mg/dL (0.2-1.2); Calc. Creatinine Clearance 85 mL/min (70-130); Calcium 8.8 mg/dL (7.8-10.44); Carbon Dioxide 36 mmol/L (23-31); Chloride 89 mmol/L (98-107); Estimated GFR-MDRD 47; Globulin 2.6 g/dL (2.4-3.5); Glucose 198 mg/dL (80-115); Sodium 134 mmol/L (136-145)
[2018-08-11] MEDS: HumaLOG 300 UNITS/3 ML VIAL SC PRN ×3 (05:37→21:18)
[2018-08-11] MEDS: Furosemide 40 MG/4 ML VIAL SLOW IVP SCH (08:47)
[2018-08-11] MEDS: Enoxaparin Sodium 40 MG/0.4 ML SYRINGE SC SCH (08:47)
[2018-08-11] MEDS: guaiFENesin ER 600 MG TAB PO SCH ×2 (08:47→21:16)
[2018-08-11] MEDS: Saccharomyces boulardii 250 MG CAP PO SCH (08:48)
--- NOTE | 2018-08-11 08:52 | PRG ---
DATE OF SERVICE: 08/11/2018 SUBJECTIVE: The patient was admitted yesterday with exacerbation of her COPD. She is very talkative this morning. OBJECTIVE: VITAL SIGNS: Her temperature is 96.7, pulse 72, blood pressure of 146/90, O2 sat generally in the high 80s. HEENT: Unremarkable. NECK: No JVD. LUNGS: Coarse breath sounds. CARDIAC: S1 and S2, regular. ABDOMEN: Soft. EXTREMITIES: Edematous. LABORATORY DATA: White blood cell count 7.6, hemoglobin 15, hematocrit 46.3, and platelet count 201. Sodium 134, potassium is 5, chloride 89, CO2 of 36, BUN 34, creatinine 1.1, and glucose 198. BNP was 252. ASSESSMENT: 1. Chronic obstructive pulmonary disease with exacerbation. 2. Chronic hypercapnic respiratory failure, requiring intermittent BiPAP. 3. Left lower lobe lung mass, which is probably a lung cancer based on positive PET scans. I have talked with her numerous times in the past about workup for this and at this point, she is refused. She says she may want to reconsider further workup next week. PLAN: 1. Continue intermittent BiPAP as needed. I would leave her in the intermediate care unit at least today. 2. Increase steroid dose. 3. Continue aggressive nebulization treatments. 4. Continue antibiotics. 5. Continue diuretics. 6. Monitor labs. 7. I will re-discuss possible biopsy next week. She does understand she has to be much better than what she has right now for me to even consider that. Job ID: [id number]
[2018-08-11] MEDS ORDERED: methylPREDNISolone Sod Succ 40 MG VIAL IVP SCH (09:00)
[2018-08-11] MEDS ORDERED: Furosemide 20 MG/2 ML VIAL SLOW IVP SCH (09:00)
--- NOTE | 2018-08-11 10:58 | PDOC.PN ---
- Subjective Encounter Start Date: 08/11/18 Encounter Start Time: 08:45 -: old records requested/rev this morening pt is more alert, she was given bipap last night, has cough and wheezing - Objective Resuscitation Status - Order Detail: 08/10/18 18:41 Resuscitation Status Routine Resuscitation Status: DNAR: NO Resuscitation Discussed with: The patient at 1830 on 10 Aug 2018 MAR Reviewed: Yes Vital Signs & Weight: Vital Signs (12 hours) Temp Pulse Resp Pulse Ox 08/11/18 07:53 82 18 89 L 08/11/18 07:25 88 L 08/11/18 03:54 96.7 F L 08/11/18 02:05 81 20 91 L 08/10/18 23:47 97.6 F Weight Weight 237 lb Most Recent Monitor Data Heart Rate from ECG 87 NIBP 146/90 NIBP BP-Mean 108 Respiration from ECG 20 SpO2 87 I&O: 08/10/18 08/11/18 08/12/18 06:59 06:59 06:59 Intake Total 870 Output Total 1400 Balance -530 Result Diagrams: 08/11/18 04:17 08/11/18 04:17 Additional Labs: Accuchecks 08/11/18 08/11/18 10:18 05:36 POC Glucose 340 H 273 H EKG Reviewed by me: Yes (nsr) Phys Exam - Physical Examination Constitutional: NAD HEENT: PERRLA, moist MMs, sclera anicteric Neck: no JVD, supple Respiratory: no rales, wheezing present Cardiovascular: RRR, no significant murmur, no rub Gastrointestinal: soft, non-tender, no distention, positive bowel sounds Musculoskeletal: no edema, pulses present Neurological: non-focal, normal sensation Lymphatic: no nodes Psychiatric: normal affect, A&O x 3 Skin: no rash, normal turgor Dx/Plan (1) Acute metabolic encephalopathy Code(s): G93.41 - METABOLIC ENCEPHALOPATHY Status: Resolved Comment: due to co2 narcosis (2) Acute on chronic diastolic ACC/AHA stage C congestive heart failure Code(s): I50.33 - ACUTE ON CHRONIC DIASTOLIC (CONGESTIVE) HEART FAILURE Status : Acute (3) Acute on chronic respiratory failure with hypoxia and hypercapnia Code(s): J96.21 - ACUTE AND CHRONIC RESPIRATORY FAILURE WITH HYPOXIA; J96.22 - ACUTE AND CHRONIC RESPIRATORY FAILURE WITH HYPERCAPNIA Status: Acute (4) COPD exacerbation Code(s): J44.1 - CHRONIC OBSTRUCTIVE PULMONARY DISEASE W (ACUTE) EXACERBATION Status: Acute (5) Lung mass Code(s): R91.8 - OTHER NONSPECIFIC ABNORMAL FINDING OF LUNG FIELD Status: Chronic (6) Diabetes type 2, controlled Code(s): E11.9 - TYPE 2 DIABETES MELLITUS WITHOUT COMPLICATIONS Status: Chronic (7) Dyslipidemia Code(s): E78.5 - HYPERLIPIDEMIA, UNSPECIFIED Status: Chronic (8) Hypertension Code(s): I10 - ESSENTIAL (PRIMARY) HYPERTENSION Status: Chronic (9) Obesity (BMI 30-39.9) Code(s): E66.9 - OBESITY, UNSPECIFIED Status: Chronic (10) Tobacco abuse Code(s): Z72.0 - TOBACCO USE Status: Chronic - Plan cont current plan of care, continue antibiotics, respiratory therapy * pulmonary recommendation appreciated * today will monitor in IMCU * will stabilize over weekend for her COPD exacerbation * next week will address lung mass * medication reviewed as below * symptomatic treatment. * continue diuresis * reduce solumderol today * currently on optimum medical therapy for copd * home medication reconciled Review of Systems - Review of Systems Constitutional: negative: fever, chills, sweats, weakness, malaise, other Respiratory: Cough, Shortness of Breath, Wheezing. negative: Dry, Hemoptysis, SOB with Excertion, Pleuritic Pain, Sputum Cardiovascular: negative: chest pain, palpitations, orthopnea, paroxysmal nocturnal dyspnea, edema, light headedness, other Gastrointestinal: negative: Nausea, Vomiting, Abdominal Pain, Diarrhea, Constipation, Melena, Hematochezia, Other Genitourinary: negative: Dysuria, Frequency, Incontinence, Hematuria, Retention , Other Musculoskeletal: negative: Neck Pain, Shoulder Pain, Arm Pain, Back Pain, Hand Pain, Leg Pain, Foot Pain, Other Skin: negative: Rash, Lesions, Nico, Bruising, Other - Medications/Allergies Allergies/Adverse Reactions: Allergies Allergy/AdvReac Type Severity Reaction Status Date / Time ketorolac [From Toradol] Allergy Verified 08/10/18 17:07 Penicillins Allergy Rash Verified 08/10/18 17:07 sulfamethoxazole Allergy Rash Verified 08/10/18 17:07 [From Bactrim] trimethoprim [From Bactrim] Allergy Verified 08/10/18 17:07 Medications: Current Medications Acetaminophen (Tylenol) 650 mg PO Q4H PRN PRN Reason: Headache/Fever/Mild Pain (1-3) Albuterol/Ipratropium (Duoneb) 3 ml NEB [id number] [facility] Last Admin: 08/11/18 07:53 Dose: 3 ml Artificial Tears (Tears Naturale) 2 drop EA EYE PRN PRN PRN Reason: Dry Eyes Atorvastatin Calcium (Lipitor) 20 mg PO HS [facility] Last Admin: 08/10/18 20:39 Dose: 20 mg Bisacodyl (Dulcolax) 10 mg [place] DAILYPRN PRN PRN Reason: Constipation Calcium Carbonate (Tums) 1,000 mg PO Q4H PRN PRN Reason: Heartburn or Indigestion Dextrose/Water (Dextrose 50%) 25 gm SLOW IVP PRN PRN PRN Reason: Hypoglycemia Enoxaparin Sodium (Lovenox) 40 mg SC 0900 [facility] Last Admin: 08/11/18 08:47 Dose: 40 mg Furosemide (Lasix) 40 mg SLOW IVP DAILY [facility] Last Admin: 08/11/18 08:47 Dose: 40 mg Glucagon (Glucagon) 1 mg IM PRN PRN PRN Reason: Hypoglycemia Guaifenesin (Mucinex) 600 mg PO Q12HR [facility] Last Admin: 08/11/18 08:47 Dose: 600 mg Guaifenesin (Robitussin Sf) 200 mg PO Q4H PRN PRN Reason: Cough Hydralazine HCl (Apresoline) 10 mg SLOW IVP Q4H PRN PRN Reason: SBP > 180 and HR < 70 Dextrose/Water (D5w) 1,000 mls @ 0 mls/hr IV .Q0M PRN PRN Reason: Hypoglycemia Levofloxacin 750 mg/ Device 150 mls @ 100 mls/hr IVPB 1800 [facility] Last Admin: 08/10/18 19:04 Dose: 150 mls Insulin Human Lispro (Humalog) 0 units SC .MODERATE SLIDING SC PRN PRN Reason: Moderate Correctional Scale Last Admin: 08/11/18 10:26 Dose: 8 unit Insulin Human Lispro (Humalog) 0 units SC .BEDTIME SLIDING SC PRN PRN Reason: Bedtime Correctional Scale Last Admin: 08/10/18 20:43 Dose: 2 unit Loperamide HCl (Imodium) 2 mg PO PRN PRN PRN Reason: Diarrhea/Loose Stools Loratadine (Claritin) 10 mg PO DAILYPRN PRN PRN Reason: Sinus Symptoms Methylprednisolone Sodium Succinate (Solu-Medrol) 20 mg IVP Q6HR [facility] Metoclopramide HCl (Reglan) 10 mg IVP Q6H PRN PRN Reason: Nausea/Vomiting Mineral Oil/White Petrolatum (Eucerin Cream) 0 gm TOP BIDPRN PRN PRN Reason: Dry Skin Pantoprazole Sodium (Protonix) 40 mg PO DAILY [facility] Last Admin: 08/11/18 08:48 Dose: 40 mg Saccharomyces Boulardii (Florastor) 250 mg PO DAILY [facility] Last Admin: 08/11/18 08:48 Dose: 250 mg Senna/Docusate Sodium (Senokot S) 2 tab PO BID PRN PRN Reason: Constipation Sodium Chloride ([place] Nasal [place] 0.65%) 0 ml EA NARE QIDPRN PRN PRN Reason: Nasal Congestion Sterile Water (Water For Injection) 2 ml IVP Q6HR [facility] Throat Lozenges (Cepastat Lozenges) 1 rafael PO Q2H PRN PRN Reason: Sore Throat
[2018-08-11] MEDS: methylPREDNISolone Sod Succ 40 MG VIAL IVP SCH ×2 (11:57→17:27)
[2018-08-11] MEDS ORDERED: Sterile Water 10 ML VIAL IVP SCH (12:00)
[2018-08-11] MEDS: Sterile Water 10 ML VIAL IVP SCH ×2 (12:05→17:30)
[2018-08-11] MEDS ORDERED: Lisinopril/Hydrochlorothiazide 20 mg/12.5 mg Tablet PO SCH (13:30)
[2018-08-11] MEDS: ALPRAZolam 0.25 MG TAB PO PRN (14:32)
[2018-08-11] MEDS ORDERED: cloNIDine 0.1 MG TAB PO PRN (15:48)
[2018-08-11] MEDS ORDERED: METFORMIN HCL 500 MG PO SCH (17:00)
[2018-08-11] MEDS: metFORMIN 500 MG TAB PO SCH (17:26)
[2018-08-11] MEDS: Mometasone/Formoterol 120 PUFF INHALER INH SCH (20:14)
[2018-08-11] MEDS ORDERED: Non-Formulary Item 1 EACH (Carvedilol [Coreg] 25 MG) PO SCH (21:00)
[2018-08-11] MEDS: Carvedilol 25 MG TAB PO SCH (21:16)
[2018-08-11] MEDS: Atorvastatin Calcium 10 MG TAB PO SCH (21:16)
[2018-08-11] MEDS: Lisinopril/Hydrochlorothiazide 20 mg/12.5 mg Tablet PO SCH (21:17)
[2018-08-11] MEDS: HumuLIN 70/30 (300 UNITS/3 ML VIAL) SC SCH (21:17)
[2018-08-12] MEDS: methylPREDNISolone Sod Succ 40 MG VIAL IVP SCH ×4 (00:46→18:18)
[2018-08-12] MEDS: Sterile Water 10 ML VIAL IVP SCH ×4 (00:46→18:19)
[2018-08-12 05:24] LABS: #Lymphocytes 0.7 thou/uL (1.20-3.40); #Monocytes 0.2 thou/uL (0.11-0.59); #Neutrophils 9.4 thou/uL (1.40-6.50); %Basophils 0.1 % (0.0-1.0); %Eosinophils 0.1 % (0.0-10.0); %Monocytes 2.1 % (0.0-10.0); %Neutrophils 90.6 % (42.0-75.0); Hemoglobin 14.3 g/dL (12.0-16.0); Mean Corpuscular HGB CONC 31.6 g/dL (32.0-36.0); Mean Corpuscular Hemoglobin 31.1 pg (27.0-31.0); Mean Corpuscular Volume 98.3 fL (78.0-98.0); Mean Platelet Volume 7.9 fL (7.4-10.4); Platelet Count 187 thou/uL (130-400); RBC Distribution Width 12.2 % (11.5-14.5); Red Blood Cell (RBC) Count 4.59 mill/uL (4.20-5.40); White Blood Cell (WBC) Count 10.4 thou/uL (4.8-10.8)
[2018-08-12 05:38] LABS: Anion Gap 11 mmol/L (10-20); BUN (Urea Nitrogen) 32 mg/dL (9.8-20.1); Calc. Creatinine Clearance 88 mL/min (70-130); Carbon Dioxide 36 mmol/L (23-31); Chloride 90 mmol/L (98-107); Estimated GFR-MDRD 50; Glucose 143 mg/dL (80-115); Potassium 4.4 mmol/L (3.5-5.1); Sodium 133 mmol/L (136-145)
[2018-08-12] MEDS: HumaLOG 300 UNITS/3 ML VIAL SC PRN ×3 (06:50→20:44)
[2018-08-12] MEDS: Mometasone/Formoterol 120 PUFF INHALER INH SCH ×2 (07:27→18:59)
[2018-08-12] MEDS: Lisinopril/Hydrochlorothiazide 20 mg/12.5 mg Tablet PO SCH ×2 (08:54→20:46)
[2018-08-12] MEDS: Citalopram 20 MG TAB PO SCH (08:55)
[2018-08-12] MEDS: Carvedilol 25 MG TAB PO SCH ×2 (08:55→20:46)
[2018-08-12] MEDS: Saccharomyces boulardii 250 MG CAP PO SCH (08:55)
[2018-08-12] MEDS: metFORMIN 500 MG TAB PO SCH ×2 (08:55→15:58)
[2018-08-12] MEDS: Enoxaparin Sodium 40 MG/0.4 ML SYRINGE SC SCH (08:55)
[2018-08-12] MEDS: guaiFENesin ER 600 MG TAB PO SCH ×2 (08:55→20:45)
[2018-08-12] MEDS: HumuLIN 70/30 (300 UNITS/3 ML VIAL) SC SCH ×2 (08:58→20:45)
[2018-08-12] MEDS ORDERED: Non-Formulary Item 1 EACH (Citalopram Hydrobromide [Celexa] 40 MG) PO SCH (09:00)
[2018-08-12] MEDS ORDERED: Furosemide 40 MG/4 ML VIAL SLOW IVP SCH (09:15)
[2018-08-12] MEDS: Furosemide 40 MG/4 ML VIAL SLOW IVP SCH (09:16)
[2018-08-12] MEDS: ALPRAZolam 0.25 MG TAB PO PRN (11:28)
--- NOTE | 2018-08-12 11:59 | PRG ---
DATE OF SERVICE: 08/12/2018 SUBJECTIVE: This morning, she is awake, alert, and responsive. She is coughing. Sputum is relatively clear. Affect is anxious. OBJECTIVE: VITAL SIGNS: Blood pressure 167/83, pulse 83, sats are 90%, afebrile. CHEST: Decreased breath sounds. No wheezing. CARDIAC: Normal S1 and S2. No gallops. ABDOMEN: No masses. LABORATORY DATA: White count 10,000. Lytes are normal. IMPRESSION: 1. Chronic obstructive pulmonary disease exacerbation. 2. Bronchitis. 3. Lung mass. 4. Major anxiety. She is on q.4 hour neb treatments and I am going to add Dulera to her present treatment. Continue steroids. Supportive care Job ID: [id number]
[2018-08-12] MEDS: HYDROcodone/Acetaminophen 5/325 mg Tablet PO PRN (12:24)
--- NOTE | 2018-08-12 13:16 | PDOC.PN ---
- Subjective Encounter Start Date: 08/12/18 Encounter Start Time: 08:45 Patient seen and examined. No new complaints. No overnight events - Objective Resuscitation Status - Order Detail: 08/10/18 18:41 Resuscitation Status Routine Resuscitation Status: DNAR: NO Resuscitation Discussed with: The patient at 1830 on 10 Aug 2018Sep Reviewed: Yes Vital Signs & Weight: Vital Signs (12 hours) Temp Pulse Resp BP BP Pulse Ox 08/12/18 12:00 82 17 148/80 H 93 L 08/12/18 11:19 87 20 92 L 08/12/18 08:54 83 167/83 H 08/12/18 07:40 97.9 F 93 L 08/12/18 07:27 83 18 94 L 08/12/18 07:24 83 18 94 L 08/12/18 04:00 97.4 F L 08/12/18 02:46 76 20 90 L Weight Weight 237 lb Most Recent Monitor Data Heart Rate from ECG 77 NIBP 148/80 NIBP BP-Mean 102 Respiration from ECG 25 SpO2 92 I&O: 08/11/18 08/12/18 08/13/18 06:59 06:59 06:59 Intake Total 870 1640 Output Total 1400 1050 Balance -530 590 Result Diagrams: 08/12/18 05:10 08/12/18 05:10 Additional Labs: Accuchecks 08/12/18 08/12/18 08/11/18 10:25 06:08 20:03 POC Glucose 272 H 175 H 316 H 08/11/18 08/10/18 16:07 19:44 POC Glucose 178 H 210 H EKG Reviewed by me: Yes (nsr) Phys Exam - Physical Examination Constitutional: NAD HEENT: PERRLA, moist MMs, sclera anicteric Neck: no JVD, supple Respiratory: no wheezing, no rales, no rhonchi reduced air entry Cardiovascular: RRR, no significant murmur, no rub Gastrointestinal: soft, non-tender, no distention, positive bowel sounds Musculoskeletal: no edema, pulses present Neurological: non-focal, normal sensation Lymphatic: no nodes Psychiatric: normal affect Skin: no rash, normal turgor Dx/Plan (1) Acute metabolic encephalopathy Code(s): G93.41 - METABOLIC ENCEPHALOPATHY Status: Resolved Comment: due to co2 narcosis (2) Acute on chronic diastolic ACC/AHA stage C congestive heart failure Code(s): I50.33 - ACUTE ON CHRONIC DIASTOLIC (CONGESTIVE) HEART FAILURE Status : Acute (3) Acute on chronic respiratory failure with hypoxia and hypercapnia Code(s): J96.21 - ACUTE AND CHRONIC RESPIRATORY FAILURE WITH HYPOXIA; J96.22 - ACUTE AND CHRONIC RESPIRATORY FAILURE WITH HYPERCAPNIA Status: Acute (4) COPD exacerbation Code(s): J44.1 - CHRONIC OBSTRUCTIVE PULMONARY DISEASE W (ACUTE) EXACERBATION Status: Acute (5) Lung mass Code(s): R91.8 - OTHER NONSPECIFIC ABNORMAL FINDING OF LUNG FIELD Status: Chronic (6) Diabetes type 2, controlled Code(s): E11.9 - TYPE 2 DIABETES MELLITUS WITHOUT COMPLICATIONS Status: Chronic (7) Dyslipidemia Code(s): E78.5 - HYPERLIPIDEMIA, UNSPECIFIED Status: Chronic (8) Hypertension Code(s): I10 - ESSENTIAL (PRIMARY) HYPERTENSION Status: Chronic (9) Obesity (BMI 30-39.9) Code(s): E66.9 - OBESITY, UNSPECIFIED Status: Chronic (10) Tobacco abuse Code(s): Z72.0 - TOBACCO USE Status: Chronic - Plan cont current plan of care, continue antibiotics, respiratory therapy * today will transfer to medical floor * she does not require bipap and stable with current treatment * currently on optimum medical therapy for copd * medication reviewed as below * symptomatic treatment. Review of Systems - Review of Systems ENT: negative: Ear Pain, Ear Discharge, Nose Pain, Nose Discharge, Nose Congestion, Mouth Pain, Mouth Swelling, Throat Pain, Throat Swelling, Other Respiratory: Cough, Shortness of Breath. negative: Dry, Hemoptysis, SOB with Excertion, Pleuritic Pain, Sputum, Wheezing Cardiovascular: negative: chest pain, palpitations, orthopnea, paroxysmal nocturnal dyspnea, edema, light headedness, other Gastrointestinal: negative: Nausea, Vomiting, Abdominal Pain, Diarrhea, Constipation, Melena, Hematochezia, Other Genitourinary: negative: Dysuria, Frequency, Incontinence, Hematuria, Retention , Other Musculoskeletal: negative: Neck Pain, Shoulder Pain, Arm Pain, Back Pain, Hand Pain, Leg Pain, Foot Pain, Other Skin: negative: Rash, Lesions, Nico, Bruising, Other - Medications/Allergies Allergies/Adverse Reactions: Allergies Allergy/AdvReac Type Severity Reaction Status Date / Time ketorolac [From Toradol] Allergy Verified 08/10/18 17:07 Penicillins Allergy Rash Verified 08/10/18 17:07 sulfamethoxazole Allergy Rash Verified 08/10/18 17:07 [From Bactrim] trimethoprim [From Bactrim] Allergy Verified 08/10/18 17:07 Medications: Current Medications Acetaminophen (Tylenol) 650 mg PO Q4H PRN PRN Reason: Headache/Fever/Mild Pain (1-3) Last Admin: 08/12/18 00:46 Dose: 650 mg Hydrocodone Bitart/Acetaminophen ([place] 5/325) 1 tab PO Q4H PRN PRN Reason: Moderate to Severe Pain (6-10) Last Admin: 08/12/18 12:24 Dose: 1 tab Albuterol/Ipratropium (Duoneb) 3 ml NEB [id number] [facility] Last Admin: 08/12/18 11:19 Dose: 3 ml Alprazolam (Xanax) 0.25 mg PO Q8H PRN PRN Reason: Anxiety Last Admin: 08/12/18 11:28 Dose: 0.25 mg Artificial Tears (Tears Naturale) 2 drop EA EYE PRN PRN PRN Reason: Dry Eyes Atorvastatin Calcium (Lipitor) 10 mg PO HS [facility] Last Admin: 08/11/18 21:16 Dose: 10 mg Benzonatate (Tessalon) 100 mg PO TID [facility] Bisacodyl (Dulcolax) 10 mg [place] DAILYPRN PRN PRN Reason: Constipation Calcium Carbonate (Tums) 1,000 mg PO Q4H PRN PRN Reason: Heartburn or Indigestion Carvedilol (Coreg) 25 mg PO BID [facility] Last Admin: 08/12/18 08:55 Dose: 25 mg Citalopram Hydrobromide (Celexa) 40 mg PO DAILY [facility] Last Admin: 08/12/18 08:55 Dose: 40 mg Clonidine (Catapres) 0.1 mg PO Q4H PRN PRN Reason: SBP GREATER THAN 160 Dextrose/Water (Dextrose 50%) 25 gm SLOW IVP PRN PRN PRN Reason: Hypoglycemia Enoxaparin Sodium (Lovenox) 40 mg SC 0900 [facility] Last Admin: 08/12/18 08:55 Dose: 40 mg Furosemide (Lasix) 40 mg SLOW IVP DAILY [facility] Last Admin: 08/12/18 09:16 Dose: 40 mg Glucagon (Glucagon) 1 mg IM PRN PRN PRN Reason: Hypoglycemia Guaifenesin (Mucinex) 600 mg PO Q12HR [facility] Last Admin: 08/12/18 08:55 Dose: 600 mg Guaifenesin (Robitussin Sf) 200 mg PO Q4H PRN PRN Reason: Cough Lisinopril/HCTZ (Prinizide 20-12.5) 1 tab PO BID [facility] Last Admin: 08/12/18 08:54 Dose: 1 tab Hydralazine HCl (Apresoline) 10 mg SLOW IVP Q4H PRN PRN Reason: SBP > 180 and HR < 70 Last Admin: 08/11/18 14:32 Dose: 10 mg Dextrose/Water (D5w) 1,000 mls @ 0 mls/hr IV .Q0M PRN PRN Reason: Hypoglycemia Levofloxacin 750 mg/ Device 150 mls @ 100 mls/hr IVPB 1800 [facility] Last Admin: 08/11/18 17:26 Dose: 150 mls Insulin Human Isoph/Insulin Regular (Humulin 70/30) 25 units SC BID [facility] Last Admin: 08/12/18 08:58 Dose: 25 unit Insulin Human Lispro (Humalog) 0 units SC .MODERATE SLIDING SC PRN PRN Reason: Moderate Correctional Scale Last Admin: 08/12/18 11:29 Dose: 6 unit Insulin Human Lispro (Humalog) 0 units SC .BEDTIME SLIDING SC PRN PRN Reason: Bedtime Correctional Scale Last Admin: 08/11/18 21:18 Dose: 4 unit Loperamide HCl (Imodium) 2 mg PO PRN PRN PRN Reason: Diarrhea/Loose Stools Loratadine (Claritin) 10 mg PO DAILYPRN PRN PRN Reason: Sinus Symptoms Metformin HCl (Glucophage) 500 mg PO BID[facility] Last Admin: 08/12/18 08:55 Dose: 500 mg Methylprednisolone Sodium Succinate (Solu-Medrol) 20 mg IVP Q6HR [facility] Last Admin: 08/12/18 11:28 Dose: 20 mg Metoclopramide HCl (Reglan) 10 mg IVP Q6H PRN PRN Reason: Nausea/Vomiting Mineral Oil/White Petrolatum (Eucerin Cream) 0 gm TOP BIDPRN PRN PRN Reason: Dry Skin Mometasone Furoate/Formoterol Fumar (Dulera 200 Mcg/5 Mcg Inhaler) 2 puff INH BID-RT [facility] Pantoprazole Sodium (Protonix) 40 mg PO DAILY [facility] Last Admin: 08/12/18 08:55 Dose: 40 mg Saccharomyces Boulardii (Florastor) 250 mg PO DAILY [facility] Last Admin: 08/12/18 08:55 Dose: 250 mg Senna/Docusate Sodium (Senokot S) 2 tab PO BID PRN PRN Reason: Constipation Sodium Chloride ([place] Nasal [place] 0.65%) 0 ml EA NARE QIDPRN PRN PRN Reason: Nasal Congestion Sodium Chloride (Flush - Normal Saline) 10 ml IVF Q12HR [facility] Last Admin: 08/12/18 08:55 Dose: 10 ml Sodium Chloride (Flush - Normal Saline) 10 ml IVF PRN PRN PRN Reason: Saline Flush Sterile Water (Water For Injection) 2 ml IVP Q6HR [facility] Last Admin: 08/12/18 06:50 Dose: 2 ml Throat Lozenges (Cepastat Lozenges) 1 rafael PO Q2H PRN PRN Reason: Sore Throat
--- NOTE | 2018-08-12 15:12 | EKG ---
Test Reason : SOB Blood Pressure : / mmHG Vent. Rate : 074 BPM Atrial Rate : 074 BPM P-R Int : 132 ms QRS Dur : 090 ms QT Int : 406 ms P-R-T Axes : 082 052 060 degrees QTc Int : 450 ms Normal sinus rhythm Normal ECG Confirmed by SHIRLEY LEIVA, LUISA Francois ([id number]), medical transcription editor ANDERS BROWN ([id number]) on 08/12/2018 3:11:46 PM Referred By: Confirmed By:LUISA WATSON MD
[2018-08-12] MEDS: Benzonatate 100 MG CAP PO SCH ×2 (15:57→20:46)
[2018-08-12] MEDS: Atorvastatin Calcium 10 MG TAB PO SCH (20:45)
[2018-08-13] MEDS: methylPREDNISolone Sod Succ 40 MG VIAL IVP SCH ×4 (00:42→18:00)
[2018-08-13] MEDS ORDERED: Bacteriostatic Water 30 ML VIAL IVP SCH (00:45)
[2018-08-13] MEDS: Sterile Water 10 ML VIAL IVP SCH (03:47)
[2018-08-13] MEDS: Bacteriostatic Water 30 ML VIAL IVP SCH ×3 (05:30→18:03)
[2018-08-13] MEDS: HumaLOG 300 UNITS/3 ML VIAL SC PRN ×4 (05:40→21:12)
[2018-08-13] MEDS: Mometasone/Formoterol 120 PUFF INHALER INH SCH ×2 (07:00→19:01)
[2018-08-13] MEDS: guaiFENesin ER 600 MG TAB PO SCH ×2 (09:02→21:13)
[2018-08-13] MEDS: metFORMIN 500 MG TAB PO SCH ×2 (09:03→17:59)
[2018-08-13] MEDS: Carvedilol 25 MG TAB PO SCH ×2 (09:03→21:13)
[2018-08-13] MEDS: Benzonatate 100 MG CAP PO SCH ×3 (09:03→21:13)
[2018-08-13] MEDS: Citalopram 20 MG TAB PO SCH (09:03)
[2018-08-13] MEDS: Saccharomyces boulardii 250 MG CAP PO SCH (09:03)
[2018-08-13] MEDS: Lisinopril/Hydrochlorothiazide 20 mg/12.5 mg Tablet PO SCH ×2 (09:03→21:17)
[2018-08-13] MEDS: Enoxaparin Sodium 40 MG/0.4 ML SYRINGE SC SCH (09:04)
[2018-08-13] MEDS: Furosemide 40 MG/4 ML VIAL SLOW IVP SCH (09:04)
[2018-08-13] MEDS: HumuLIN 70/30 (300 UNITS/3 ML VIAL) SC SCH ×2 (09:04→21:12)
[2018-08-13] MEDS: HYDROcodone/Acetaminophen 5/325 mg Tablet PO PRN ×2 (09:12→21:23)
--- NOTE | 2018-08-13 10:19 | PDOC.PN ---
- Subjective Encounter Start Date: 08/13/18 Encounter Start Time: 08:15 Patient seen and examined. No new complaints. No overnight events - Objective Resuscitation Status - Order Detail: 08/10/18 18:41 Resuscitation Status Routine Resuscitation Status: DNAR: NO Resuscitation Discussed with: The patient at 1830 on 10 Aug 2018 MAR Reviewed: Yes Vital Signs & Weight: Vital Signs (12 hours) Temp Pulse Resp BP BP Pulse Ox 08/13/18 09:03 75 196/94 H 08/13/18 07:58 98.6 F 75 20 196/94 H 91 L 08/13/18 07:00 75 12 95 08/13/18 06:59 75 16 93 L 08/13/18 05:30 98.5 F 75 20 177/84 H 91 L 08/13/18 02:13 71 16 08/13/18 00:42 98.0 F 73 20 123/75 91 L Weight Weight 237 lb Most Recent Monitor Data Heart Rate from ECG 77 NIBP 148/80 NIBP BP-Mean 102 Respiration from ECG 25 SpO2 92 I&O: 08/12/18 08/13/18 08/14/18 06:59 06:59 06:59 Intake Total 1640 1150 Output Total 1050 550 Balance 590 600 Result Diagrams: 08/12/18 05:10 08/12/18 05:10 Additional Labs: Accuchecks 08/13/18 08/12/18 08/12/18 05:41 20:36 16:46 POC Glucose 164 H 278 H 163 H 08/12/18 10:25 POC Glucose 272 H Phys Exam - Physical Examination Constitutional: NAD HEENT: PERRLA, moist MMs, sclera anicteric Neck: no JVD, supple Respiratory: no wheezing, no rales, no rhonchi reduced air entry, scoliosis Cardiovascular: RRR, no significant murmur, no rub Gastrointestinal: soft, non-tender, no distention, positive bowel sounds Musculoskeletal: no edema, pulses present Neurological: non-focal, normal sensation, moves all 4 limbs Lymphatic: no nodes Psychiatric: normal affect, A&O x 3 Skin: no rash, normal turgor Dx/Plan (1) Acute metabolic encephalopathy Code(s): G93.41 - METABOLIC ENCEPHALOPATHY Status: Resolved Comment: due to co2 narcosis (2) Acute on chronic diastolic ACC/AHA stage C congestive heart failure Code(s): I50.33 - ACUTE ON CHRONIC DIASTOLIC (CONGESTIVE) HEART FAILURE Status : Acute (3) Acute on chronic respiratory failure with hypoxia and hypercapnia Code(s): J96.21 - ACUTE AND CHRONIC RESPIRATORY FAILURE WITH HYPOXIA; J96.22 - ACUTE AND CHRONIC RESPIRATORY FAILURE WITH HYPERCAPNIA Status: Acute (4) COPD exacerbation Code(s): J44.1 - CHRONIC OBSTRUCTIVE PULMONARY DISEASE W (ACUTE) EXACERBATION Status: Acute (5) Lung mass Code(s): R91.8 - OTHER NONSPECIFIC ABNORMAL FINDING OF LUNG FIELD Status: Chronic (6) Diabetes type 2, controlled Code(s): E11.9 - TYPE 2 DIABETES MELLITUS WITHOUT COMPLICATIONS Status: Chronic (7) Dyslipidemia Code(s): E78.5 - HYPERLIPIDEMIA, UNSPECIFIED Status: Chronic (8) Hypertension Code(s): I10 - ESSENTIAL (PRIMARY) HYPERTENSION Status: Chronic (9) Obesity (BMI 30-39.9) Code(s): E66.9 - OBESITY, UNSPECIFIED Status: Chronic (10) Tobacco abuse Code(s): Z72.0 - TOBACCO USE Status: Chronic - Plan cont current plan of care, continue antibiotics * continue duoneb, dulera, solumedrol and empiric antibiotics * medication reviewed as below * symptomatic treatment * lung mass work up will defer to pulmonary * pt is improving. Review of Systems - Review of Systems ENT: negative: Ear Pain, Ear Discharge, Nose Pain, Nose Discharge, Nose Congestion, Mouth Pain, Mouth Swelling, Throat Pain, Throat Swelling, Other Respiratory: Cough, Shortness of Breath. negative: Dry, Hemoptysis, SOB with Excertion, Pleuritic Pain, Sputum, Wheezing Cardiovascular: negative: chest pain, palpitations, orthopnea, paroxysmal nocturnal dyspnea, edema, light headedness, other Gastrointestinal: negative: Nausea, Vomiting, Abdominal Pain, Diarrhea, Constipation, Melena, Hematochezia, Other Genitourinary: negative: Dysuria, Frequency, Incontinence, Hematuria, Retention , Other Musculoskeletal: negative: Neck Pain, Shoulder Pain, Arm Pain, Back Pain, Hand Pain, Leg Pain, Foot Pain, Other - Medications/Allergies Allergies/Adverse Reactions: Allergies Allergy/AdvReac Type Severity Reaction Status Date / Time ketorolac [From Toradol] Allergy Verified 08/10/18 17:07 Penicillins Allergy Rash Verified 08/10/18 17:07 sulfamethoxazole Allergy Rash Verified 08/10/18 17:07 [From Bactrim] trimethoprim [From Bactrim] Allergy Verified 08/10/18 17:07 Medications: Current Medications Acetaminophen (Tylenol) 650 mg PO Q4H PRN PRN Reason: Headache/Fever/Mild Pain (1-3) Last Admin: 08/12/18 00:46 Dose: 650 mg Hydrocodone Bitart/Acetaminophen ([place] 5/325) 1 tab PO Q4H PRN PRN Reason: Moderate to Severe Pain (6-10) Last Admin: 08/13/18 09:12 Dose: 1 tab Albuterol/Ipratropium (Duoneb) 3 ml NEB [id number] [facility] Last Admin: 08/13/18 06:59 Dose: 3 ml Alprazolam (Xanax) 0.25 mg PO Q8H PRN PRN Reason: Anxiety Last Admin: 08/12/18 11:28 Dose: 0.25 mg Artificial Tears (Tears Naturale) 2 drop EA EYE PRN PRN PRN Reason: Dry Eyes Atorvastatin Calcium (Lipitor) 10 mg PO HS [facility] Last Admin: 08/12/18 20:45 Dose: 10 mg Benzonatate (Tessalon) 100 mg PO TID [facility] Last Admin: 08/13/18 09:03 Dose: 100 mg Bisacodyl (Dulcolax) 10 mg [place] DAILYPRN PRN PRN Reason: Constipation Calcium Carbonate (Tums) 1,000 mg PO Q4H PRN PRN Reason: Heartburn or Indigestion Carvedilol (Coreg) 25 mg PO BID [facility] Last Admin: 08/13/18 09:03 Dose: 25 mg Citalopram Hydrobromide (Celexa) 40 mg PO DAILY [facility] Last Admin: 08/13/18 09:03 Dose: 40 mg Clonidine (Catapres) 0.1 mg PO Q4H PRN PRN Reason: SBP GREATER THAN 160 Dextrose/Water (Dextrose 50%) 25 gm SLOW IVP PRN PRN PRN Reason: Hypoglycemia Enoxaparin Sodium (Lovenox) 40 mg SC 0900 [facility] Last Admin: 08/13/18 09:04 Dose: 40 mg Furosemide (Lasix) 40 mg SLOW IVP DAILY [facility] Last Admin: 02/10/19 09:04 Dose: 40 mg Glucagon (Glucagon) 1 mg IM PRN PRN PRN Reason: Hypoglycemia Guaifenesin (Mucinex) 600 mg PO Q12HR [facility] Last Admin: 08/13/18 09:02 Dose: 600 mg Guaifenesin (Robitussin Sf) 200 mg PO Q4H PRN PRN Reason: Cough Lisinopril/HCTZ (Prinizide 20-12.5) 1 tab PO BID [facility] Last Admin: 08/13/18 09:03 Dose: 1 tab Hydralazine HCl (Apresoline) 10 mg SLOW IVP Q4H PRN PRN Reason: SBP > 180 and HR < 70 Last Admin: 08/11/18 14:32 Dose: 10 mg Dextrose/Water (D5w) 1,000 mls @ 0 mls/hr IV .Q0M PRN PRN Reason: Hypoglycemia Levofloxacin 750 mg/ Device 150 mls @ 100 mls/hr IVPB 1800 [facility] Last Admin: 08/12/18 18:19 Dose: 150 mls Insulin Human Isoph/Insulin Regular (Humulin 70/30) 25 units SC BID [facility] Last Admin: 08/13/18 09:04 Dose: 25 unit Insulin Human Lispro (Humalog) 0 units SC .MODERATE SLIDING SC PRN PRN Reason: Moderate Correctional Scale Last Admin: 08/13/18 05:40 Dose: 2 unit Insulin Human Lispro (Humalog) 0 units SC .BEDTIME SLIDING SC PRN PRN Reason: Bedtime Correctional Scale Last Admin: 08/12/18 20:44 Dose: 3 unit Loperamide HCl (Imodium) 2 mg PO PRN PRN PRN Reason: Diarrhea/Loose Stools Loratadine (Claritin) 10 mg PO DAILYPRN PRN PRN Reason: Sinus Symptoms Metformin HCl (Glucophage) 500 mg PO BID-[facility] Last Admin: 08/13/18 09:03 Dose: 500 mg Methylprednisolone Sodium Succinate (Solu-Medrol) 20 mg IVP Q6HR [facility] Last Admin: 08/13/18 05:30 Dose: 20 mg Metoclopramide HCl (Reglan) 10 mg IVP Q6H PRN PRN Reason: Nausea/Vomiting Mineral Oil/White Petrolatum (Eucerin Cream) 0 gm TOP BIDPRN PRN PRN Reason: Dry Skin Mometasone Furoate/Formoterol Fumar (Dulera 200 Mcg/5 Mcg Inhaler) 2 puff INH BID-RT [facility] Last Admin: 08/13/18 07:00 Dose: 2 puff Pantoprazole Sodium (Protonix) 40 mg PO DAILY [facility] Last Admin: 08/13/18 09:03 Dose: 40 mg Saccharomyces Boulardii (Florastor) 250 mg PO DAILY [facility] Last Admin: 08/13/18 09:03 Dose: 250 mg Senna/Docusate Sodium (Senokot S) 2 tab PO BID PRN PRN Reason: Constipation Sodium Chloride ([place] Nasal [place] 0.65%) 0 ml EA NARE QIDPRN PRN PRN Reason: Nasal Congestion Sodium Chloride (Flush - Normal Saline) 10 ml IVF Q12HR [facility] Last Admin: 08/13/18 09:04 Dose: 10 ml Sodium Chloride (Flush - Normal Saline) 10 ml IVF PRN PRN PRN Reason: Saline Flush Sterile Water (Bacteriostatic Water) 2 ml IVP Q6HR [facility] Last Admin: 08/13/18 05:30 Dose: 2 ml Throat Lozenges (Cepastat Lozenges) 1 rafael PO Q2H PRN PRN Reason: Sore Throat
--- NOTE | 2018-08-13 12:37 | PRG ---
DATE OF SERVICE: 08/13/2018 SUBJECTIVE: This morning, she is better, less cough, less shortness of breath. OBJECTIVE: VITAL SIGNS: Sats are 90% on 2 L, respirations 16, temperature 98, and blood pressure 120/72. CHEST: Decreased breath sounds. No wheezing. CARDIAC: Normal S1 and S2. No gallops. ABDOMEN: No masses. IMPRESSION: 1. Chronic obstructive pulmonary disease. 2. Hypoxemia. 3. Lung mass. PLAN: Continue present treatment. Outpatient workup for lung mass. Job ID: [id number]
[2018-08-13] MEDS ORDERED: Metoclopramide HCl 10 MG TAB PO PRN (14:14)
[2018-08-13] MEDS: Atorvastatin Calcium 10 MG TAB PO SCH (21:13)
[2018-08-14] MEDS: methylPREDNISolone Sod Succ 40 MG VIAL IVP SCH ×3 (00:36→11:17)
[2018-08-14] MEDS: Bacteriostatic Water 30 ML VIAL IVP SCH ×3 (00:37→11:17)
[2018-08-14] MEDS: Mometasone/Formoterol 120 PUFF INHALER INH SCH (06:30)
--- NOTE | 2018-08-14 09:04 | PRG ---
DATE OF SERVICE: 08/14/2018 SUBJECTIVE: Ms. Mckenna is feeling much better. She looks as good as I have ever seen her. OBJECTIVE: VITAL SIGNS: On exam, temperature 98.2, pulse 70, respirations 18, O2 saturation 92% on 2 L, blood pressure 140/90. HEENT: Unremarkable. NECK: No JVD. LUNGS: Clear anteriorly. CARDIAC: S1, S2. Regular. ABDOMEN: Soft. EXTREMITIES: No edema. ASSESSMENT: 1. Chronic obstructive pulmonary disease with exacerbation, which is better. 2. Left lower lobe lung mass. The patient is reconsidered and says she does want this biopsied. We discussed potential risk including bleeding, infection, external lung puncture. She is agreeable to proceed. I think the only reasonable mechanism to get to this at this time would be CT needle biopsy. The patient did have Lovenox yesterday. Lovenox will be held and I will check her coagulation parameters. Job ID: [id number]
[2018-08-14] MEDS: Citalopram 20 MG TAB PO SCH (09:08)
[2018-08-14] MEDS: Carvedilol 25 MG TAB PO SCH (09:09)
[2018-08-14] MEDS: metFORMIN 500 MG TAB PO SCH (09:09)
[2018-08-14] MEDS: Lisinopril/Hydrochlorothiazide 20 mg/12.5 mg Tablet PO SCH (09:09)
[2018-08-14] MEDS: Saccharomyces boulardii 250 MG CAP PO SCH (09:09)
[2018-08-14] MEDS: guaiFENesin ER 600 MG TAB PO SCH (09:09)
[2018-08-14] MEDS: Benzonatate 100 MG CAP PO SCH (09:10)
[2018-08-14] MEDS: HumuLIN 70/30 (300 UNITS/3 ML VIAL) SC SCH (09:10)
[2018-08-14] MEDS: Furosemide 40 MG/4 ML VIAL SLOW IVP SCH (09:10)
--- NOTE | 2018-08-14 09:29 | PDOC.PN ---
- Subjective Encounter Start Date: 08/14/18 Encounter Start Time: 07:45 Patient seen and examined. No new complaints. No overnight events - Objective Resuscitation Status - Order Detail: 08/10/18 18:41 Resuscitation Status Routine Resuscitation Status: DNAR: NO Resuscitation Discussed with: The patient at 1830 on 10 Aug 2018 MAR Reviewed: Yes Vital Signs & Weight: Vital Signs (12 hours) Temp Pulse Resp BP BP Pulse Ox 08/14/18 09:09 72 140/90 08/14/18 07:27 98.2 F 72 18 140/90 92 L 08/14/18 06:28 85 16 91 L 08/14/18 04:41 98.9 F 72 20 139/71 92 L 08/14/18 03:27 96 08/14/18 03:26 92 L 08/14/18 00:00 98.3 F 77 20 131/82 08/13/18 23:42 79 18 97 08/13/18 23:31 94 L Weight Weight 237 lb Most Recent Monitor Data Heart Rate from ECG 77 NIBP 148/80 NIBP BP-Mean 102 Respiration from ECG 25 SpO2 92 I&O: 08/13/18 08/14/18 08/15/18 06:59 06:59 06:59 Intake Total 1150 1680 Output Total 550 Balance 600 1680 Result Diagrams: 08/12/18 05:10 08/12/18 05:10 Additional Labs: Accuchecks 08/14/18 08/13/18 08/13/18 04:39 21:03 15:28 POC Glucose 132 H 234 H 189 H 08/13/18 11:03 POC Glucose 257 H Phys Exam - Physical Examination Constitutional: NAD HEENT: PERRLA, moist MMs, sclera anicteric Neck: no JVD, supple Respiratory: no wheezing, no rales, no rhonchi Cardiovascular: RRR, no significant murmur, no rub Gastrointestinal: soft, non-tender, no distention, positive bowel sounds Musculoskeletal: no edema, pulses present Neurological: non-focal, normal sensation Lymphatic: no nodes Psychiatric: normal affect, A&O x 3 Skin: no rash, normal turgor Dx/Plan (1) Acute metabolic encephalopathy Code(s): G93.41 - METABOLIC ENCEPHALOPATHY Status: Resolved Comment: due to co2 narcosis (2) Acute on chronic diastolic ACC/AHA stage C congestive heart failure Code(s): I50.33 - ACUTE ON CHRONIC DIASTOLIC (CONGESTIVE) HEART FAILURE Status : Acute (3) Acute on chronic respiratory failure with hypoxia and hypercapnia Code(s): J96.21 - ACUTE AND CHRONIC RESPIRATORY FAILURE WITH HYPOXIA; J96.22 - ACUTE AND CHRONIC RESPIRATORY FAILURE WITH HYPERCAPNIA Status: Acute (4) COPD exacerbation Code(s): J44.1 - CHRONIC OBSTRUCTIVE PULMONARY DISEASE W (ACUTE) EXACERBATION Status: Acute (5) Lung mass Code(s): R91.8 - OTHER NONSPECIFIC ABNORMAL FINDING OF LUNG FIELD Status: Chronic (6) Diabetes type 2, controlled Code(s): E11.9 - TYPE 2 DIABETES MELLITUS WITHOUT COMPLICATIONS Status: Chronic (7) Dyslipidemia Code(s): E78.5 - HYPERLIPIDEMIA, UNSPECIFIED Status: Chronic (8) Hypertension Code(s): I10 - ESSENTIAL (PRIMARY) HYPERTENSION Status: Chronic (9) Obesity (BMI 30-39.9) Code(s): E66.9 - OBESITY, UNSPECIFIED Status: Chronic (10) Tobacco abuse Code(s): Z72.0 - TOBACCO USE Status: Chronic - Plan cont current plan of care, continue antibiotics, respiratory therapy * now COPD and CHF under control * today possible lung biopsy for lung mass * medication reviewed as below * symptomatic treatment. * expecting discharge tomorrow Review of Systems - Review of Systems Eyes: negative: Pain, Vision Change, Conjunctivae Inflammation, Eyelid Inflammation, Redness, Other ENT: negative: Ear Pain, Ear Discharge, Nose Pain, Nose Discharge, Nose Congestion, Mouth Pain, Mouth Swelling, Throat Pain, Throat Swelling, Other Respiratory: negative: Cough, Dry, Shortness of Breath, Hemoptysis, SOB with Excertion, Pleuritic Pain, Sputum, Wheezing Cardiovascular: negative: chest pain, palpitations, orthopnea, paroxysmal nocturnal dyspnea, edema, light headedness, other Gastrointestinal: negative: Nausea, Vomiting, Abdominal Pain, Diarrhea, Constipation, Melena, Hematochezia, Other Genitourinary: negative: Dysuria, Frequency, Incontinence, Hematuria, Retention , Other Musculoskeletal: negative: Neck Pain, Shoulder Pain, Arm Pain, Back Pain, Hand Pain, Leg Pain, Foot Pain, Other Skin: negative: Rash, Lesions, Nico, Bruising, Other - Medications/Allergies Allergies/Adverse Reactions: Allergies Allergy/AdvReac Type Severity Reaction Status Date / Time ketorolac [From Toradol] Allergy Verified 08/10/18 17:07 Penicillins Allergy Rash Verified 08/10/18 17:07 sulfamethoxazole Allergy Rash Verified 08/10/18 17:07 [From Bactrim] trimethoprim [From Bactrim] Allergy Verified 08/10/18 17:07 Medications: Current Medications Acetaminophen (Tylenol) 650 mg PO Q4H PRN PRN Reason: Headache/Fever/Mild Pain (1-3) Last Admin: 08/12/18 00:46 Dose: 650 mg Hydrocodone Bitart/Acetaminophen ([place] 5/325) 1 tab PO Q4H PRN PRN Reason: Moderate to Severe Pain (6-10) Last Admin: 08/13/18 21:23 Dose: 1 tab Albuterol/Ipratropium (Duoneb) 3 ml NEB [id number] [facility] Last Admin: 08/14/18 06:28 Dose: 3 ml Alprazolam (Xanax) 0.25 mg PO Q8H PRN PRN Reason: Anxiety Last Admin: 08/12/18 11:28 Dose: 0.25 mg Artificial Tears (Tears Naturale) 2 drop EA EYE PRN PRN PRN Reason: Dry Eyes Atorvastatin Calcium (Lipitor) 10 mg PO HS [facility] Last Admin: 08/13/18 21:13 Dose: 10 mg Benzonatate (Tessalon) 100 mg PO TID [facility] Last Admin: 08/14/18 09:10 Dose: 100 mg Bisacodyl (Dulcolax) 10 mg [place] DAILYPRN PRN PRN Reason: Constipation Calcium Carbonate (Tums) 1,000 mg PO Q4H PRN PRN Reason: Heartburn or Indigestion Carvedilol (Coreg) 25 mg PO BID [facility] Last Admin: 08/14/18 09:09 Dose: 25 mg Citalopram Hydrobromide (Celexa) 40 mg PO DAILY [facility] Last Admin: 08/14/18 09:08 Dose: 40 mg Clonidine (Catapres) 0.1 mg PO Q4H PRN PRN Reason: SBP GREATER THAN 160 Dextrose/Water (Dextrose 50%) 25 gm SLOW IVP PRN PRN PRN Reason: Hypoglycemia Furosemide (Lasix) 40 mg SLOW IVP DAILY [facility] Last Admin: 08/14/18 09:10 Dose: 40 mg Glucagon (Glucagon) 1 mg IM PRN PRN PRN Reason: Hypoglycemia Guaifenesin (Mucinex) 600 mg PO Q12HR [facility] Last Admin: 08/14/18 09:09 Dose: 600 mg Guaifenesin (Robitussin Sf) 200 mg PO Q4H PRN PRN Reason: Cough Lisinopril/HCTZ (Prinizide 20-12.5) 1 tab PO BID [facility] Last Admin: 08/14/18 09:09 Dose: 1 tab Hydralazine HCl (Apresoline) 10 mg SLOW IVP Q4H PRN PRN Reason: SBP > 180 and HR < 70 Last Admin: 08/11/18 14:32 Dose: 10 mg Dextrose/Water (D5w) 1,000 mls @ 0 mls/hr IV .Q0M PRN PRN Reason: Hypoglycemia Insulin Human Isoph/Insulin Regular (Humulin 70/30) 25 units SC BID [facility] Last Admin: 08/14/18 09:10 Dose: 25 unit Insulin Human Lispro (Humalog) 0 units SC .MODERATE SLIDING SC PRN PRN Reason: Moderate Correctional Scale Last Admin: 08/13/18 18:07 Dose: 2 unit Insulin Human Lispro (Humalog) 0 units SC .BEDTIME SLIDING SC PRN PRN Reason: Bedtime Correctional Scale Last Admin: 08/13/18 21:12 Dose: 2 unit Levofloxacin (Levaquin) 750 mg PO 0600 [facility] Last Admin: 08/14/18 05:55 Dose: 750 mg Loperamide HCl (Imodium) 2 mg PO PRN PRN PRN Reason: Diarrhea/Loose Stools Loratadine (Claritin) 10 mg PO DAILYPRN PRN PRN Reason: Sinus Symptoms Metformin HCl (Glucophage) 500 mg PO BID-[facility] Last Admin: 08/14/18 09:09 Dose: 500 mg Methylprednisolone Sodium Succinate (Solu-Medrol) 20 mg IVP Q6HR [facility] Last Admin: 08/14/18 05:54 Dose: 20 mg Metoclopramide HCl (Reglan) 10 mg PO Q6H PRN PRN Reason: Nausea/Vomiting Mineral Oil/White Petrolatum (Eucerin Cream) 0 gm TOP BIDPRN PRN PRN Reason: Dry Skin Mometasone Furoate/Formoterol Fumar (Dulera 200 Mcg/5 Mcg Inhaler) 2 puff INH BID-RT [facility] Last Admin: 08/14/18 06:30 Dose: 2 puff Pantoprazole Sodium (Protonix) 40 mg PO DAILY [facility] Last Admin: 08/14/18 09:10 Dose: 40 mg Saccharomyces Boulardii (Florastor) 250 mg PO DAILY [facility] Last Admin: 08/14/18 09:09 Dose: 250 mg Senna/Docusate Sodium (Senokot S) 2 tab PO BID PRN PRN Reason: Constipation Last Admin: 08/13/18 18:13 Dose: 2 tab Sodium Chloride ([place] Nasal [place] 0.65%) 0 ml EA NARE QIDPRN PRN PRN Reason: Nasal Congestion Sodium Chloride (Flush - Normal Saline) 10 ml IVF Q12HR [facility] Last Admin: 08/14/18 09:10 Dose: 10 ml Sodium Chloride (Flush - Normal Saline) 10 ml IVF PRN PRN PRN Reason: Saline Flush Sterile Water (Bacteriostatic Water) 2 ml IVP Q6HR [facility] Last Admin: 08/14/18 05:56 Dose: 2 ml Throat Lozenges (Cepastat Lozenges) 1 rafael PO Q2H PRN PRN Reason: Sore Throat
[2018-08-14 09:40] LABS: INR-International Normal Ratio 1.1; PTT 24.5 SEC (22.9-36.1); Prothrombin Time 14.2 SEC (12.0-14.7)
[2018-08-14 11:54] VITALS: BP 132/76; TEMP 97.8
--- NOTE | 2018-08-14 15:24 | DIS ---
DATE OF ADMISSION: 08/10/2018 DATE OF DISCHARGE: 08/14/2018 PRIMARY CARE PHYSICIAN: [facility]. DISCHARGE DISPOSITION: Against medical advice. PRIMARY DISCHARGE DIAGNOSES: 1. Acute on chronic diastolic heart failure. 2. Acute on chronic respiratory failure with hypoxia and hypercapnia. 3. Chronic obstructive pulmonary disease exacerbation. 4. Acute metabolic encephalopathy. SECONDARY DISCHARGE DIAGNOSES: Tobacco abuse disorder, obesity with BMI 36, lung mass uninvestigated, hypertension, dyslipidemia, diabetes type 2, end-stage chronic obstructive pulmonary disease, chronic respiratory failure with hypoxia and hypercapnia on home oxygen therapy, chronic diastolic heart failure, medication noncompliance. PRIMARY PROCEDURE/OPERATION: None. RADIOLOGICAL INVESTIGATION: CT angiography showed a lung mass. Chest x-ray showed COPD changes. SIGNIFICANT LABORATORY DATA: WBC 10.4, hemoglobin 14.3, and platelet 187. INR 1.1. Sodium 133, creatinine 1.11, and calcium 9.0. DISCHARGE MEDICATIONS: The patient will resume all her previous medication including, 1. Ventolin inhaler two puffs q.6 hourly. 2. Lipitor 10 mg at bedtime. 3. Azithromycin 500 mg p.o. daily. 4. Coreg 25 mg b.i.d. 5. Celexa 40 mg daily. 6. Insulin 25 units subcu b.i.d. 7. Prinzide 20/12.5 one tablet b.i.d. 8. Metformin 500 mg p.o. b.i.d. 9. Senna 1 tablet b.i.d. 10. Tramadol 50 mg p.r.n. 11. Lasix 40 mg daily. 12. DuoNeb q.6 hourly. 13. Dulera 2 puff inhalation b.i.d. CONTRAINDICATION: None. CODE STATUS: DNR. INPATIENT INSPECTOR FIREARMS: Dr. Zamorano was following while in hospital. TEST RESULT PENDING ON DISCHARGE: None. ALLERGIES: TORADOL, PENICILLIN, SULFA. DISCHARGE PLAN: Posthospital, the patient will follow up with primary care physician Dr. Zamorano as instructed. The patient left against medical advice. HOSPITAL COURSE: A 62-year-old female with above-mentioned medical problem, who was admitted by me on August 10, 2018. Please see my HPI for further details. The patient was having altered mental status from CO2 narcosis. She was having COPD flare-up. ABG showed hypercapnia, hypoxia. She required BiPAP. She required IMCU admission. Pulmonary group was consulted. Next, the patient's condition improved and the patient was transferred to medical floor. This patient has underlying lung mass, which has never been investigated in past and that is why we gave her opportunity to do investigation when her COPD got improved, but the patient did not want to go for that and she does not want to take any risk of minor procedure. The patient left against medical advice. The patient is at risk for recurrent admission. Job ID: [id number]
== END 2018-08-14 14:36 | disposition left against medical advice (07) | DRG 189 ==
LOC: ERS 11:08 → IMCU/EMU 16:29 → OBSVTOIN 17:09 → T4-A 08-12 14:02
PROVIDERS: ADMIT Internal Medicine; ATTEND Internal Medicine
PROC: 5A09357 Assistance with Respiratory Ventilation, Less than 24 Consecutive Hours, Continuous Positive Airway Pressure (ICD-10-PCS; principal; 2018-08-10)
DX: J96.21 Acute and chronic respiratory failure with hypoxia (principal); G93.41 Metabolic encephalopathy; I50.33 Acute on chronic diastolic (congestive) heart failure; I13.0 Hypertensive heart and chronic kidney disease with heart failure and stage 1 through stage 4 chronic kidney disease, or unspecified chronic kidney disease; E87.2 Acidosis; J44.1 Chronic obstructive pulmonary disease with (acute) exacerbation; J96.22 Acute and chronic respiratory failure with hypercapnia; F17.210 Nicotine dependence, cigarettes, uncomplicated; E66.01 Morbid (severe) obesity due to excess calories; Z68.36 Body mass index [BMI] 36.0-36.9, adult; Z91.19 Patient's noncompliance with other medical treatment and regimen; K21.9 Gastro-esophageal reflux disease without esophagitis; I83.90 Asymptomatic varicose veins of unspecified lower extremity; F41.9 Anxiety disorder, unspecified; F32.9 Major depressive disorder, single episode, unspecified; E11.22 Type 2 diabetes mellitus with diabetic chronic kidney disease; N18.3 Chronic kidney disease, stage 3 (moderate); E78.5 Hyperlipidemia, unspecified; Z66 Do not resuscitate; G47.33 Obstructive sleep apnea (adult) (pediatric); R91.8 Other nonspecific abnormal finding of lung field; Z79.84 Long term (current) use of oral hypoglycemic drugs; Z88.0 Allergy status to penicillin; Z88.2 Allergy status to sulfonamides; Z88.8 Allergy status to other drugs, medicaments and biological substances; Z90.49 Acquired absence of other specified parts of digestive tract; Z83.3 Family history of diabetes mellitus; Z82.3 Family history of stroke; Z80.9 Family history of malignant neoplasm, unspecified
CPT/HCPCS: 36415; 36416; 71045; 71275; 80048; 80053; 81001; 82550; 82805; 83605; 83880; 84484; 85025; 85610; 85730; 87633; 93005; 94640; 94660; A4216; J0360; J1650; J1815; J1940; J1956; J2920; J7620; J7626; Q9966